=== PATIENT | female | born 1990 ===

== ENCOUNTER 2024-08-09 15:45 | Inpatient (IN) | payer OTHER, SELFPAY ==
--- NOTE | 2024-08-09 | ECG_ITS ---
Test Reason : TACHY Blood Pressure : */* mmHG Vent. Rate : 131 BPM Atrial Rate : 131 BPM P-R Int : 124 ms QRS Dur : 82 ms QT Int : 392 ms P-R-T Axes : 26 -9 55 degrees QTcB Int : 578 ms Sinus tachycardia Minimal voltage criteria for LVH, may be normal variant ( R in aVL ) Possible Anterior infarct , age undetermined Abnormal ECG No previous ECGs available Referred By: Generic ED Physician Electronically Signed By: Ashish Carmona
--- NOTE | ~2024-08-09 | XR_ITS ---
CLINICAL HISTORY: hypoxia 1 view chest x-ray. Comparison: None Findings: Heart size is normal, considering portable technique. Pulmonary vasculature is prominent. Small amount fluid is present in the minor fissure. There is atelectasis in the lung bases. No acute fracture. Impression: Normal heart size with mild vascular congestion Hypoventilation with bibasilar atelectasis/early pneumonia and small right pleural effusion. This document has been electronically signed by: Ryan Padilla MD on 08/09/2024 17:13:46
--- NOTE | ~2024-08-09 | CT_ITS ---
CLINICAL HISTORY: AMS CT head without contrast Comparison: None Findings: No intracranial mass, midline shift, hydrocephalus, or acute hemorrhage. Minimal mucosal thickening identified at the left frontal sinus with [id number] mucosal thickening of the ethmoid air cells, minimal mucosal thickening at the left maxillary sinus, and mild mucosal thickening at the right maxillary sinus. Minimal mucosal thickening present at the bilateral sphenoid sinuses. The bilateral mastoid air cells appear clear. No acute skull fracture. Impression: 1. No acute intracranial abnormality. No acute intracranial hemorrhage. This document has been electronically signed by: Henrry Ayon MD on 08/09/2024 23:14:49
--- NOTE | ~2024-08-09 | CT_ITS ---
CLINICAL HISTORY: hypoxia CT chest without contrast Comparison: None Findings: Normal heart,size. No significant pericardial effusion. No thoracic aorta aneurysm. There are minimal bilateral pleural effusions dependently with [id number] ill-defined ground-glass opacities diffusely throughout the bilateral lungs. No pneumothorax. 5 mm nodule visualized of the right middle lobe, along the right minor fissure on axial image number 53 of series 4. Moderate T7 vertebral body compression deformity present. This may be chronic in etiology based on its appearance. Impression: [id number] ill-defined ground-glass opacities identified diffusely throughout the bilateral lungs with minimal bilateral pleural effusions. These findings may be consistent with pulmonary edema or an atypical/viral infection. 5 mm right middle lobe nodule. Recommend no follow-up in low risk, and optional [address] follow-up in high-risk patients according to Fleischner criteria. Moderate T7 vertebral body compression deformity. This may be chronic in etiology based on its appearance, however clinical correlation is advised given the lack of comparison imaging. This document has been electronically signed by: Henrry Ayon MD on 08/09/2024 23:24:22
--- NOTE | ~2024-08-09 | CT_ITS ---
CLINICAL HISTORY: abd pain, emesis CT abdomen and pelvis without contrast Comparison: None Findings: This examination is mildly degraded by artifact related to motion and the patient's arms. The gallbladder and solid organs are within normal limits. No renal stones. No hydronephrosis or hydroureter. No bowel obstruction, pneumoperitoneum, or pneumatosis. Moderate colonic stool burden, most prominent at the ascending and transverse portions of the colon. Pelvic contents unremarkable. No bladder wall thickening. Normal appendix. The bones are intact. IMPRESSION: 1. Mildly limited examination related to artifact as described above. No acute inflammatory process identified within the abdomen or pelvis. 2. Moderate colonic stool burden. No bowel obstruction. This document has been electronically signed by: Henrry Ayon MD on 08/09/2024 23:24:07
[2024-08-09 15:53] VITALS: BP 138/78; PULSE 130; O2SAT 87
[2024-08-09 16:01] VITALS: BP 130/74; PULSE 128; RESP 10; TEMP 37.1; O2SAT 86; BMI 25.1
[2024-08-09 16:06] VITALS: O2SAT 93
--- NOTE | 2024-08-09 16:10 | ED.GENADULT ---
HPI - General Adult General Chief complaint: Altered Mental Status Stated complaint: Coffee ground emesis disoriented Time Seen by Provider: 08/09/24 16:09 Source: patient and EMS Mode of arrival: EMS History of Present Illness ED Provider: HPI narrative: Patient with history of polysubstance abuse, alcohol use came from [facility] after patient noted with decreased responsiveness saturating 87% at room air vomited coffee colored once does have history of GI surgery and ulcers in not using any thinners patient has been in [facility] since 07/31 Related Data Home Medications ?Medication ?Instructions ?Recorded ?Confirmed acetaminophen 325 mg tablet 650 mg PO Q4H PRN pain 08/09/24 08/09/24 aluminum-mag hydroxide-simethicone 30 ml PO QID PRN Constipation 08/09/24 08/09/24 200 mg-200 mg-20 mg/5 mL oral susp calcium carbonate 500 mg PO Q4H PRN Heartburn 08/09/24 08/09/24 clonazepam 1 mg tablet 1 mg PO TID@0630,1200,1800 08/09/24 08/09/24 docusate sodium 100 mg capsule 100 mg PO BID PRN Constipation 08/09/24 08/09/24 gabapentin 400 mg capsule 800 mg PO TID@0800,1300,1900 08/09/24 08/09/24 guaifenesin 600 mg tablet, 1,200 mg PO BID PRN Cough 08/09/24 08/09/24 extended release 12 hr hydroxyzine pamoate 50 mg capsule 50 mg PO Q4H PRN Anxiety 08/09/24 08/09/24 ibuprofen 400 mg tablet 400 mg PO Q8H PRN Pain 08/09/24 08/09/24 loperamide 2 mg capsule 2 mg PO Q4H PRN Diarrhea 08/09/24 08/09/24 lorazepam 1 mg tablet 1 mg PO Q1H PRN Withdrawal Symptoms 08/09/24 08/09/24 magnesium hydroxide 400 mg/5 mL 30 ml PO DAILY PRN Constipation 08/09/24 08/09/24 oral suspension melatonin 3 mg tablet 3 mg PO BEDTIME PRN insomnia 08/09/24 08/09/24 methadone 5 mg tablet 25 mg PO DAILY 08/09/24 08/09/24 mirtazapine 15 mg tablet 15 mg PO BEDTIME@1900 08/09/24 08/09/24 nicotine 21 mg/24 hr daily 1 patch topical DAILY PRN Smoking 08/09/24 08/09/24 transdermal patch Cessation ondansetron 4 mg disintegrating 4 mg PO Q6H PRN Nausea And Vomiting 08/09/24 08/09/24 tablet prazosin 1 mg capsule 1 mg PO BEDTIME@1900 08/09/24 08/09/24 quetiapine 200 mg tablet 200 mg PO BID@0800,1300 08/09/24 08/09/24 quetiapine 400 mg tablet 400 mg PO BEDTIME@19008/09/24 08/09/24 sennosides 8.6 mg tablet (senna) 17.2 mg PO DAILY PRN Constipation 08/09/24 08/09/24 Allergies Allergy/AdvReac Type Severity Reaction Status Date / Time Unable to Assess Allergy Verified 08/09/24 16:03 Review of Systems Review of Systems: Yes Unobtainable due to mental condition [facility] Past Medical History Medical History Mood disorder Social History Social History Unable to assess alcohol history related to: Unable to respond Use of substances other than those prescribed or required for medical reasons: Unable to respond Advance Directives: No Advance Directives Information Provided: No Physical Exam ED Vital Signs: Vital Signs - 24 hr 08/09/24 16:01 08/09/24 16:06 08/09/24 17:18 Temperature 98.7 F Pulse Rate 128 H 116 H Respiratory Rate 10 L 12 Blood Pressure 130/74 117/60 Pulse Oximetry 86 L 93 98 Oxygen Delivery Method Room Air Nasal Cannula Nasal Cannula Oxygen Flow Rate 4 4 08/09/24 19:51 Temperature 99.4 F Pulse Rate 113 H Respiratory Rate 16 Blood Pressure 104/53 L Pulse Oximetry 94 Oxygen Delivery Method Nasal Cannula Oxygen Flow Rate 4 BMI result Body Mass Index 25.1 Appearance: Lethargic arousable to painful and verbal stimuli. No acute distress. Eyes: PERRLA, No Nystagmus ENT: Pharynx normal. Oral Mucosa moist Neck: Normal inspection. Neck supple. CVS: Normal heart rate and rhythm. Pulses normal. Respiratory: No respiratory distress. Equal air entry bilateral, no wheezing or rhonchi diffuse crackles specially in the right lower base Abdomen: Soft and nontender. Bowel sounds are present, no mass palpable, no CVA tenderness Skin: Skin warm and dry. Normal skin color. Normal skin turgor. Extremities: No lower extremity edema. No calf tenderness Neuro: Lethargic moving all 4 extremities to painful stimuli Medications Administered Generic Name Dose Route Start Last Admin Trade Name Freq PRN Reason Stop Dose Admin Ampicillin Sodium/Sulbactam 100 mls @ 200 mls/hr 08/09/24 23:45 08/10/24 01:00 Sodium 3 gm/ Sodium Chloride IV 200 mls/hr Q6H INDER Administration Sodium Chloride 3 ml 08/10/24 00:00 08/10/24 01:03 0.9 % Sodium Chloride Flush 3 Ml Syringe IVFLUSH Not Given QSHIFT INDER Discontinued Medications Generic Name Dose Route Start Last Admin Trade Name Freq PRN Reason Stop Dose Admin Enoxaparin Sodium 40 mg 08/09/24 23:30 08/10/24 00:59 Enoxaparin Sodium 40 Mg/0.4 Ml Syringe SUBCUT 40 mg Q24H INDER Administration Sodium Chloride 1,000 mls @ 999 mls/hr 08/09/24 16:28 08/09/24 17:39 Ns IV 08/09/24 17:28 Infused .Q1H1M ONE Infusion Piperacillin Sod/Tazobactam 50 mls @ 100 mls/hr 08/09/24 21:05 08/09/24 22:08 Sod 3.375 gm/ Sodium Chloride IV 08/09/24 21:34 Infused ONCE ONE Infusion Naloxone HCl 0.4 mg 08/09/24 16:29 08/09/24 16:40 Naloxone Hcl 0.4 Mg/Ml Vial IVPUSH 08/09/24 16:30 0.4 mg ONCE ONE Administration Pantoprazole Sodium 80 mg 08/09/24 16:29 08/09/24 16:40 Pantoprazole Sodium 40 Mg/10 Ml Vial IVPUSH 08/09/24 16:30 80 mg ONCE ONE Administration Medical Decision Making Medical Decision Making [facility] Narrative: Patient with altered mental status with increased shortness of breath and lethargy from psych facility noted to be positive for fentanyl likely patient has had fentanyl during stay the also workup showed possible aspiration pneumonia started on Zosyn no active upper GI bleed noticed H&H stable. Will admit patient for observation during stay in the ER patient was ambulatory but falling sleep often Differential Diagnosis Differential Diagnoses: The differential diagnosis associated with the presentation includes Aspiration pneumonia/polysubstance abuse/narcotic abuse/metabolic encephalopathy Admission/Observation Consideration of admission/observation: Escalation of care including admission/observation considered Consult Healthcare Provider Management of the patient was discussed with: Hospitalist Lab Data MDM Lab Attestation statement: I reviewed the patient's lab results. 08/09/24 20:18 08/09/24 16:26 Labs: Lab Results 08/09/24 08/09/24 08/09/24 Range/Units 16:26 20:18 20:31 WBC 7.9 (4.8-10.8) X10*3/uL RBC 4.69 (4.20-5.50) X10*6/uL Hgb 13.1 11.5 L (12.0-16.0) g/dl Hct 38.3 33.8 L (37.0-47.0) % MCV 81.7 (80.0-98.0) fL MCH 27.9 (27.0-33.0) pg MCHC 34.2 (31.0-35.0) g/dl RDW 13.3 (11.0-16.0) % Plt Count 190 (160-400) X10*3/uL MPV 9.8 (9.4-12.3) fL Immature Gran % (Auto) 0.4 (0.0-0.4) % Neut % (Auto) 78.3 H (45-73) % Lymph % (Auto) 13.2 L (20-40) % [place] % (Auto) 7.6 (2-11) % Eos % (Auto) 0.4 (0-4) % Baso % (Auto) 0.1 (0-2) % Lymph # (Auto) 1.0 L (1.2-4.9) X10*3/uL [place] # (Auto) 0.6 (0.1-1.2) X10*3/uL Eos # (Auto) 0.0 (0.0-0.4) X10*3/uL Baso # (Auto) 0.0 (0.0-0.2) X10*3/uL Abs Immat Gran (auto) 0.03 (0.00-0.03) X10*3/uL Absolute Neuts (auto) 6.2 (2.0-8.3) x10*3/uL Absolute Nucleated RBC 0.000 (0.0-0.012) X10*3/uL Nucleated RBC % (auto) 0.0 (0.0-0.2) /100WBC PT 11.4 (10.9-12.4) SEC INR 1.0 (0.9-1.1) VBG pH 7.39 (7.32-7.43) VBG pCO2 53 mmHg VBG pO2 75 mmHg VBG HCO3 32 H (22-26) mmol/L VBG O2 Saturation 98.0 % VBG Base Excess 6.2 mmol/L Sodium 139 (135-145) mmol/L Potassium 3.9 (3.3-5.1) mmol/L Chloride 101 (96-108) mmol/L Carbon Dioxide 29 (22-29) mmol/L Anion Gap 13 (12-20) BUN 11 (9-16) mg/dL Creatinine 0.69 (0.5-1.4) mg/dL Estim Creat Clear Calc 98.7 Estimated GFR > 60 Random Glucose 109 (60-115) mg/dL Lactic Acid (0.5-2.0) mmol/L Calcium 9.1 (8.4-10.2) mg/dL Total Bilirubin 0.5 (0.0-1.0) mg/dL AST 42 H (5-31) U/L ALT 57 H (0-31) U/L Alkaline Phosphatase 97 (39-117) U/L Ammonia 41 (13-55) umol/L Total Protein 8.1 H (6.5-8.0) g/dL Albumin 4.2 (3.5-5.0) g/dL TSH 1.14 (0.32-4.0) uIU/mL Urine Opiates Screen Not Detected (Not Detect) Ur Buprenorphine Scrn Not Detected (Not Detect) ng/mL Ur Oxycodone Screen Not Detected (Not Detect) ng/mL Urine Methadone Screen Positive H (Not Detect) ng/mL Urine Fentanyl Screen POSITIVE H (Not Detect) Ur Barbiturates Screen Not Detected (Not Detect) Ur Phencyclidine Scrn Not Detected (Not Detect) Ur Amphetamines Screen Not Detected (Not Detect) U Benzodiazepines Scrn Not Detected (Not Detect) Urine Cocaine Screen Not Detected (Not Detect) U Marijuana (THC) Screen Not Detected (Not Detect) Ethyl Alcohol < 10 mg/dL Influenza Type A (PCR) NEGATIVE (Negative) Influenza Type B (PCR) NEGATIVE (Negative) RSV RNA Qual (PCR) NEGATIVE (Negative) SARS-CoV-2 RNA (RT-PCR) NEGATIVE (Negative) 08/09/24 Range/Units 21:28 WBC (4.8-10.8) X10*3/uL RBC (4.20-5.50) X10*6/uL Hgb (12.0-16.0) g/dl Hct (37.0-47.0) % MCV (80.0-98.0) fL MCH (27.0-33.0) pg MCHC (31.0-35.0) g/dl RDW (11.0-16.0) % Plt Count (160-400) X10*3/uL MPV (9.4-12.3) fL Immature Gran % (Auto) (0.0-0.4) % Neut % (Auto) (45-73) % Lymph % (Auto) (20-40) % [place] % (Auto) (2-11) % Eos % (Auto) (0-4) % Baso % (Auto) (0-2) % Lymph # (Auto) (1.2-4.9) X10*3/uL [place] # (Auto) (0.1-1.2) X10*3/uL Eos # (Auto) (0.0-0.4) X10*3/uL Baso # (Auto) (0.0-0.2) X10*3/uL Abs Immat Gran (auto) (0.00-0.03) X10*3/uL Absolute Neuts (auto) (2.0-8.3) x10*3/uL Absolute Nucleated RBC (0.0-0.012) X10*3/uL Nucleated RBC % (auto) (0.0-0.2) /100WBC PT (10.9-12.4) SEC INR (0.9-1.1) VBG pH (7.32-7.43) VBG pCO2 mmHg VBG pO2 mmHg VBG HCO3 (22-26) mmol/L VBG O2 Saturation % VBG Base Excess mmol/L Sodium (135-145) mmol/L Potassium (3.3-5.1) mmol/L Chloride (96-108) mmol/L Carbon Dioxide (22-29) mmol/L Anion Gap (12-20) BUN (9-16) mg/dL Creatinine (0.5-1.4) mg/dL Estim Creat Clear Calc Estimated GFR Random Glucose (60-115) mg/dL Lactic Acid 1.6 (0.5-2.0) mmol/L Calcium (8.4-10.2) mg/dL Total Bilirubin (0.0-1.0) mg/dL AST (5-31) U/L ALT (0-31) U/L Alkaline Phosphatase (39-117) U/L Ammonia (13-55) umol/L Total Protein (6.5-8.0) g/dL Albumin (3.5-5.0) g/dL TSH (0.32-4.0) uIU/mL Urine Opiates Screen (Not Detect) Ur Buprenorphine Scrn (Not Detect) ng/mL Ur Oxycodone Screen (Not Detect) ng/mL Urine Methadone Screen (Not Detect) ng/mL Urine Fentanyl Screen (Not Detect) Ur Barbiturates Screen (Not Detect) Ur Phencyclidine Scrn (Not Detect) Ur Amphetamines Screen (Not Detect) U Benzodiazepines Scrn (Not Detect) Urine Cocaine Screen (Not Detect) U Marijuana (THC) Screen (Not Detect) Ethyl Alcohol mg/dL Influenza Type A (PCR) (Negative) Influenza Type B (PCR) (Negative) RSV RNA Qual (PCR) (Negative) SARS-CoV-2 RNA (RT-PCR) (Negative) Independent Interpretation I performed an independent interpretation of an: EKG and Plain X-Ray Interpretation: Sinus tachycardia heart rate 131 beats per minute LVH no acute STT wave changes no acute ischemia Radiology Impression Discussion of test interpretation with radiology: I have reviewed the radiologist's reading. Discharge Plan Discharge Clinical Impression: Altered mental status, Acute hypoxemic respiratory failure, Aspiration pneumonia, Toxic encephalopathy, Opiate abuse, episodic Patient Disposition: Admitted As Inpatient
[2024-08-09 16:31] LABS: MANUAL DIFF FLAG NO
[2024-08-09 16:37] LABS: Basophils Percent Auto 0.1 % (0-2); Eosinophils Percent Auto 0.4 % (0-4); Hematocrit 38.3 % (37.0-47.0); Hemoglobin 13.1 g/dl (12.0-16.0); Imm Gran Abs Auto 0.03 X10*3/uL (0.00-0.03); Imm Gran Pct Auto 0.4 % (0.0-0.4); Lymphocytes Percent Auto 13.2 % (20-40); Mean Corpuscular HGB Conc 34.2 g/dl (31.0-35.0); Mean Corpuscular Hemoglobin 27.9 pg (27.0-33.0); Mean Corpuscular Volume 81.7 fL (80.0-98.0); Mean Platelet Volume 9.8 fL (9.4-12.3); Monocytes Absolute Auto 0.6 X10*3/uL (0.1-1.2); Monocytes Percent Auto 7.6 % (2-11); Neutrophils Absolute Auto 6.2 x10*3/uL (2.0-8.3); Neutrophils Percent Auto 78.3 % (45-73); Platelet Count 190 X10*3/uL (160-400); Red Blood Count 4.69 X10*6/uL (4.20-5.50); Red Cell Distribution Width 13.3 % (11.0-16.0); White Blood Count 7.9 X10*3/uL (4.8-10.8)
[2024-08-09] MEDS: Naloxone HCl 0.4 MG/ML VIAL IVPUSH (16:40)
[2024-08-09] MEDS: 0.9 % Sodium Chloride 1,000 ML 999 ML IV (16:40)
[2024-08-09] MEDS: Pantoprazole Sodium 40 MG/10 ML VIAL 80 MG IVPUSH (16:40)
[2024-08-09 16:41] LABS: Prothrombin Time 11.4 SEC (10.9-12.4)
[2024-08-09 16:54] LABS: Alanine Aminotransferase 57 U/L (0-31); Albumin Level 4.2 g/dL (3.5-5.0); Alkaline Phosphatase 97 U/L (39-117); Anion Gap 13 (12-20); Aspartate Amino Transferase 42 U/L (5-31); Bilirubin Total 0.5 mg/dL (0.0-1.0); Blood Urea Nitrogen 11 mg/dL (9-16); Calcium 9.1 mg/dL (8.4-10.2); Carbon Dioxide 29 mmol/L (22-29); Chloride 101 mmol/L (96-108); Creatinine Clr Calc Pharmacy 98.7; Estimated Glomerular Filt Rate > 60; Ethanol < 10 mg/dL; Glucose Random 109 mg/dL (60-115); Potassium 3.9 mmol/L (3.3-5.1); Sodium 139 mmol/L (135-145); Total Protein 8.1 g/dL (6.5-8.0)
[2024-08-09 17:10] LABS: Influenza A PCR NEGATIVE (Negative); Influenza B PCR NEGATIVE (Negative); Resp Syncy Virus RNA Qual PCR NEGATIVE (Negative); SARS COV2 PCR INHOUSE NEGATIVE (Negative)
[2024-08-09 17:18] VITALS: BP 117/60; PULSE 116; RESP 12; O2SAT 98
[2024-08-09 19:51] VITALS: BP 104/53; PULSE 113; RESP 16; TEMP 37.4; O2SAT 94
[2024-08-09 20:33] LABS: Venous Blood Gas Refer to POC result
[2024-08-09 20:34] LABS: VBG Base Excess 6.2 mmol/L; VBG HCO3 32 mmol/L (22-26); VBG pCO2 53 mmHg; VBG pH 7.39 (7.32-7.43); VBG pO2 75 mmHg
[2024-08-09 20:38] LABS: Hematocrit 33.8 % (37.0-47.0); Hemoglobin 11.5 g/dl (12.0-16.0)
[2024-08-09 20:39] LABS: Ammonia 41 umol/L (13-55)
[2024-08-09 20:45] LABS: Amphetamine Screen Urine Not Detected (Not Detect); Barbiturates, Urine Not Detected (Not Detect); Benzodiazepines Screen Urine Not Detected (Not Detect); Buprenorphine Scr Not Detected (Not Detect); Cannabinoid Screen Urine Not Detected (Not Detect); Cocaine Screen Urine Not Detected (Not Detect); Fentanyl, urine POSITIVE (Not Detect); Methadone Screen, Urine Positive (Not Detect); Opiate Screen Urine Not Detected (Not Detect); Oxycodone Screen Urine Not Detected (Not Detect); Phencyclidine Screen Urine Not Detected (Not Detect)
--- NOTE | 2024-08-09 20:54 | PC.NURSE ---
pt is getting upset wants to go back to [facility], pt ambulated to the bathroom with steady gait. needs at bedside pt had her diner on her own. pt expresses the need to walk around due to her sciatia issue. sat on room air 91-92% after going to the bathroom and back to bed. provider made aware.
--- NOTE | 2024-08-09 21:02 | PC.NURSE ---
provider at bedside, pt has not vomited since the onset of this rn's shift. pt sat are low 91-92% on room air, 95% with cough and deep breathing, crackles noted in base question aspiration pn.
[2024-08-09 21:09] LABS: Thyroid Stimulating Hormone 1.14 uIU/mL (0.32-4.0)
--- NOTE | 2024-08-09 21:22 | PHA.MEDREC ---
Addendum entered by Manan Parnell 08/09/24 21:32: reviewed Original Note: Pharmacy Consult ? Medication Reconciliation Pharmacy has completed the medication reconciliation[facility]
[2024-08-09] MEDS: Piperacillin Sodium/Tazobactam 3.375 GM in 0.9 % Sodium Chloride 50 ML IV (21:38)
[2024-08-09 21:54] LABS: Lactic Acid 1.6 mmol/L (0.5-2.0)
--- NOTE | 2024-08-09 22:14 | PC.NURSE ---
pt was sleeping, arrousable and demanding to staff, pt taken to ct with sitter present.
--- NOTE | 2024-08-09 22:29 | PC.NURSE ---
pt back from CT, pt was not sitting still well, flipped off the radiology staff. once pt returned to the ed pt was settled down.
--- NOTE | 2024-08-09 23:23 | PM.IMHP ---
History of Present Illness Date of Service: 08/10/24 Chief Complaint: Altered mentation This is a 33-year-old female with pertinent history of mood disorder, polysubstance use disorder, alcohol use disorder who was brought from [facility] for evaluation of decreased responsiveness. Patient awakens to verbal stimulus but goes back asleep immediately so unable to obtain history from the patient. Withdraws extremities to painful stimulus. History obtained from ER provider and chart review. Patient was noted to be with decreased responsiveness and was sent to the ER for further evaluation. In the emergency department pinpoint pupils noted and patient was given Narcan. She was also found to be hypoxic and placed on 4 L supplemental oxygen in the ER. Also reports of questionable coffee-ground emesis at [facility]. Unable to obtain review of systems. In the emergency department, imaging concerning for ground-glass opacities with bilateral pleural effusions. Review of Systems Review of Systems: Yes Unobtainable due to mental status PMFSH Medical History Mood disorder Pertinent family history: Unable to obtain Social History Unable to assess alcohol history related to: Unable to respond Use of substances other than those prescribed or required for medical reasons: Unable to respond Advance Directives: No Advance Directives Information Provided: No Meds Allergies Allergy/AdvReac Type Severity Reaction Status Date / Time Unable to Assess Allergy Verified 08/09/24 16:03 Home Medications ?Medication ?Instructions ?Recorded ?Confirmed ?Last Taken ?Type acetaminophen 325 mg tablet 650 mg PO Q4H PRN pain 08/09/24 08/09/24 Unknown History aluminum-mag hydroxide-simethicone 30 ml PO QID PRN Constipation 08/09/24 08/09/24 Unknown History 200 mg-200 mg-20 mg/5 mL oral susp calcium carbonate 500 mg PO Q4H PRN Heartburn 08/09/24 08/09/24 Unknown History clonazepam 1 mg tablet 1 mg PO TID@0630,1200,1800 08/09/24 08/09/24 Unknown History docusate sodium 100 mg capsule 100 mg PO BID PRN Constipation 08/09/24 08/09/24 Unknown History gabapentin 400 mg capsule 800 mg PO TID@0800,1300,1900 08/09/24 08/09/24 Unknown History guaifenesin 600 mg tablet, 1,200 mg PO BID PRN Cough 08/09/24 08/09/24 Unknown History extended release 12 hr hydroxyzine pamoate 50 mg capsule 50 mg PO Q4H PRN Anxiety 08/09/24 08/09/24 Unknown History ibuprofen 400 mg tablet 400 mg PO Q8H PRN Pain 08/09/24 08/09/24 Unknown History loperamide 2 mg capsule 2 mg PO Q4H PRN Diarrhea 08/09/24 08/09/24 Unknown History lorazepam 1 mg tablet 1 mg PO Q1H PRN Withdrawal Symptoms 08/09/24 08/09/24 Unknown History magnesium hydroxide 400 mg/5 mL 30 ml PO DAILY PRN Constipation 08/09/24 08/09/24 Unknown History oral suspension melatonin 3 mg tablet 3 mg PO BEDTIME PRN insomnia 08/09/24 08/09/24 Unknown History methadone 5 mg tablet 25 mg PO DAILY 08/09/24 08/09/24 Unknown History mirtazapine 15 mg tablet 15 mg PO BEDTIME@189908/09/24 08/09/24 Unknown History nicotine 21 mg/24 hr daily 1 patch topical DAILY PRN Smoking 08/09/24 08/09/24 Unknown History transdermal patch Cessation ondansetron 4 mg disintegrating 4 mg PO Q6H PRN Nausea And Vomiting 08/09/24 08/09/24 Unknown History tablet prazosin 1 mg capsule 1 mg PO BEDTIME@189908/09/24 08/09/24 Unknown History quetiapine 200 mg tablet 200 mg PO BID@0800,1300 08/09/24 08/09/24 Unknown History quetiapine 400 mg tablet 400 mg PO BEDTIME@189908/09/24 08/09/24 Unknown History sennosides 8.6 mg tablet (senna) 17.2 mg PO DAILY PRN Constipation 08/09/24 08/09/24 Unknown History Physical Exam Vital Signs and Narrative: Vital Signs: Last Vital Signs Temp 99.4 F 08/09/24 19:51 Pulse 113 H 08/09/24 19:51 Resp 16 08/09/24 19:51 BP 104/53 L 08/09/24 19:51 Pulse Ox 94 08/09/24 19:51 O2 Del Method Nasal Cannula 08/09/24 19:51 O2 Flow Rate 4 08/09/24 19:51 BMI result Body Mass Index 25.1 Middle-aged female lying in bed on supplemental oxygen Neck supple, no JVD Regular rate and rhythm, S1-S2 heard Crackles present, no wheezing appreciated Abdomen soft nontender, no guarding, no rigidity Patient is somnolent but awakens to verbal stimulus, does not follow commands, non conversational as falls back asleep, withdraws extremity to pain Psych: Somnolent No pedal edema Results Labs 08/09/24 20:18 08/09/24 16:26 Labs: Laboratory Results - last 24 hr 08/09/24 08/09/24 08/09/24 16:26 20:18 20:31 MCV 81.7 MCH 27.9 MCHC 34.2 RDW 13.3 Plt Count 190 MPV 9.8 Immature Gran % (Auto) 0.4 Neut % (Auto) 78.3 H Lymph % (Auto) 13.2 L [place] % (Auto) 7.6 Eos % (Auto) 0.4 Baso % (Auto) 0.1 Lymph # (Auto) 1.0 L [place] # (Auto) 0.6 Eos # (Auto) 0.0 Baso # (Auto) 0.0 Abs Immat Gran (auto) 0.03 Absolute Neuts (auto) 6.2 Absolute Nucleated RBC 0.000 Nucleated RBC % (auto) 0.0 PT 11.4 INR 1.0 VBG pH 7.39 VBG pCO2 53 VBG pO2 75 VBG HCO3 32 H VBG O2 Saturation 98.0 VBG Base Excess 6.2 Anion Gap 13 Estim Creat Clear Calc 98.7 Estimated GFR > 60 Random Glucose 109 Lactic Acid Calcium 9.1 Total Bilirubin 0.5 AST 42 H ALT 57 H Alkaline Phosphatase 97 Ammonia 41 Total Protein 8.1 H Albumin 4.2 TSH 1.14 Urine Opiates Screen Not Detected Ur Buprenorphine Scrn Not Detected Ur Oxycodone Screen Not Detected Urine Methadone Screen Positive H Urine Fentanyl Screen POSITIVE H Ur Barbiturates Screen Not Detected Ur Phencyclidine Scrn Not Detected Ur Amphetamines Screen Not Detected U Benzodiazepines Scrn Not Detected Urine Cocaine Screen Not Detected U Marijuana (THC) Screen Not Detected Ethyl Alcohol < 10 Influenza Type A (PCR) NEGATIVE Influenza Type B (PCR) NEGATIVE RSV RNA Qual (PCR) NEGATIVE SARS-CoV-2 RNA (RT-PCR) NEGATIVE 08/09/24 21:28 MCV MCH MCHC RDW Plt Count MPV Immature Gran % (Auto) Neut % (Auto) Lymph % (Auto) [place] % (Auto) Eos % (Auto) Baso % (Auto) Lymph # (Auto) [place] # (Auto) Eos # (Auto) Baso # (Auto) Abs Immat Gran (auto) Absolute Neuts (auto) Absolute Nucleated RBC Nucleated RBC % (auto) PT INR VBG pH VBG pCO2 VBG pO2 VBG HCO3 VBG O2 Saturation VBG Base Excess Anion Gap Estim Creat Clear Calc Estimated GFR Random Glucose Lactic Acid 1.6 Calcium Total Bilirubin AST ALT Alkaline Phosphatase Ammonia Total Protein Albumin TSH Urine Opiates Screen Ur Buprenorphine Scrn Ur Oxycodone Screen Urine Methadone Screen Urine Fentanyl Screen Ur Barbiturates Screen Ur Phencyclidine Scrn Ur Amphetamines Screen U Benzodiazepines Scrn Urine Cocaine Screen U Marijuana (THC) Screen Ethyl Alcohol Influenza Type A (PCR) Influenza Type B (PCR) RSV RNA Qual (PCR) SARS-CoV-2 RNA (RT-PCR) Assessment and Plan (1) Acute hypoxemic respiratory failure: Status: Acute (2) Aspiration pneumonia: Status: Acute (3) Toxic encephalopathy: Status: Acute Plan This is a 33-year-old female with pertinent history of mood disorder, polysubstance use disorder, alcohol use disorder who was brought from [facility] for evaluation of decreased responsiveness. #. Acute hypoxemic respiratory failure due to aspiration pneumonia: Will admit patient with supplemental oxygen. Initiating IV Unasyn. #. Acute toxic encephalopathy in the setting of fentanyl use: UDS positive for fentanyl although patient was denying use initially as per ER provider. Addiction Team consulted. Monitor for withdrawal. #. ?Coffee-ground emesis: Initiated IV Protonix. GI consult if H&H drops. #. Mood disorder: Hold home mood stabilizers until mentation improves. Has sitter in place Med rec pending DVT prophylaxis: Mechanical Full code Admit as inpatient and will require two night minimum hospital stay for supplemental oxygen, IV antibiotics (as above), which is not possible in a lesser acute setting. Quality Stroke Does the patient have a stroke diagnosis?: No VTE Prior VTE?: No VTE Risk Level:: Medical - moderate - high VTE Device Contraindication: Treatment Not Indicated VTE Drug Contraindication: N/A - Med Ordered
--- NOTE | 2024-08-10 | ECG_ITS ---
Test Reason : cabanae Blood Pressure : */* mmHG Vent. Rate : 92 BPM Atrial Rate : 92 BPM P-R Int : 148 ms QRS Dur : 90 ms QT Int : 412 ms P-R-T Axes : 40 -1 32 degrees QTcB Int : 509 ms Normal sinus rhythm Prolonged QT Abnormal ECG When compared with ECG of 09-Aug-2024 16:10, No significant change was found Referred By: Tiffanie Keen Electronically Signed By: Ashish Carmona
[2024-08-10 00:43] LABS: B Type Natriuretic Peptide 12 pg/mL (<100)
[2024-08-10] MEDS: Enoxaparin Sodium 40 MG/0.4 ML SYRINGE SUBCUT (00:59)
[2024-08-10] MEDS: Ampicillin Sodium/Sulbactam Na 3 GM in 0.9 % Sodium Chloride 100 ML IV ×4 (01:00→18:36)
--- NOTE | 2024-08-10 02:06 | PC.NURSE ---
pt sleeping, pt fell asleep while eating a sandwhich, only half consumed. pt rr even reg no s/s of distress, sitter present. no s/s of distress. when pt wakes she is whinning and talking like a child, pt can clear up her talk if addressed pt can talk normal.
[2024-08-10] MEDS: Thiamine HCL 200 MG in 0.9 % Sodium Chloride 100 ML 204 MG IV (02:14)
--- NOTE | 2024-08-10 04:44 | PC.NURSE ---
pt states her place she receives her methadone from is 20 miles away from here and unable to verify her methadone dose.
--- NOTE | 2024-08-10 04:48 | PC.NURSE ---
pt states she gets her methadone from ? [facility] yet she is homeless, pt refusing labs till she gets her dose. pt doesnt know her dose, pt is getting more aggitated and is not cooperative with staff at this time but is redirectable.
--- NOTE | 2024-08-10 05:00 | PC.NURSE ---
This rn is trying to verify pt methadone dose with [facility] and no answer, message left to call us back. pt made aware, pt is stating she will pull out her iv, threatening to leave, refusing lab draws and with talking to pt she did allow labs to be drawn.
[2024-08-10 05:01] LABS: MANUAL DIFF FLAG NO
--- NOTE | 2024-08-10 05:03 | PC.NURSE ---
pt pulled out her iv at this time, reason stated she didnt like her iv in her hand.
--- NOTE | 2024-08-10 05:11 | PC.NURSE ---
hospitalist jasbir sent to request her medications, and to update provider.
[2024-08-10 05:15] LABS: Basophils Percent Auto 0.3 % (0-2); Eosinophils Absolute Auto 0.1 X10*3/uL (0.0-0.4); Eosinophils Percent Auto 1.9 % (0-4); Hematocrit 33.3 % (37.0-47.0); Imm Gran Abs Auto 0.01 X10*3/uL (0.00-0.03); Imm Gran Pct Auto 0.3 % (0.0-0.4); Lymphocytes Absolute Auto 1.4 X10*3/uL (1.2-4.9); Lymphocytes Percent Auto 43.7 % (20-40); Mean Corpuscular Hemoglobin 27.5 pg (27.0-33.0); Mean Corpuscular Volume 83.3 fL (80.0-98.0); Mean Platelet Volume 10.2 fL (9.4-12.3); Monocytes Absolute Auto 0.3 X10*3/uL (0.1-1.2); Monocytes Percent Auto 10.4 % (2-11); Neutrophils Absolute Auto 1.4 x10*3/uL (2.0-8.3); Neutrophils Percent Auto 43.4 % (45-73); Platelet Count 185 X10*3/uL (160-400); Red Cell Distribution Width 13.3 % (11.0-16.0); White Blood Count 3.2 X10*3/uL (4.8-10.8)
[2024-08-10 05:21] LABS: Anion Gap 11 (12-20); Blood Urea Nitrogen 10 mg/dL (9-16); Calcium 8.6 mg/dL (8.4-10.2); Carbon Dioxide 27 mmol/L (22-29); Chloride 106 mmol/L (96-108); Creatinine Clr Calc Pharmacy 104.7; Estimated Glomerular Filt Rate > 60; Glucose Random 138 mg/dL (60-115); Potassium 3.9 mmol/L (3.3-5.1); Sodium 140 mmol/L (135-145)
[2024-08-10 05:53] VITALS: BP 100/54; PULSE 90; RESP 20; TEMP 36.7; O2SAT 93
[2024-08-10] MEDS: Pantoprazole Sodium 40 MG/10 ML VIAL IVPUSH ×2 (05:59→15:34)
--- NOTE | 2024-08-10 07:30 | PC.NURSE ---
ASSUMED CARE OF PT, SHE IS AGITATED, DEMANDING MEDS, POOR IMPULSE CONTROL, DEMANDING FOOD WELL. PROVIDERS CONTACTED FOR MED ORDERS.
[2024-08-10 08:27] VITALS: BP 119/68; PULSE 85; RESP 20; O2SAT 97
[2024-08-10] MEDS: Thiamine HCL 100 MG TABLET PO (08:36)
[2024-08-10] MEDS: QUEtiapine Fumarate 200 MG TABLET PO ×2 (08:36→12:20)
[2024-08-10] MEDS: Gabapentin 400 MG CAPSULE 800 MG PO ×3 (08:36→18:43)
[2024-08-10] MEDS: ondansetron HCL 4 MG/2 ML VIAL IVPUSH (08:36)
[2024-08-10] MEDS: clonazePAM 1 MG TABLET PO ×3 (08:36→18:37)
[2024-08-10] MEDS: 0.9 % Sodium Chloride Flush 3 ML SYRINGE IVFLUSH ×2 (08:37→15:35)
--- NOTE | 2024-08-10 09:59 | PC.NURSE ---
PT MEDICATED PER EMR. ATIVAN HELD PT PREFERS TO TAKE HOME KLNOPIN. PT CONTINUES TO BE BELLIGERENTLY DEMANDING FOOD AND DRINK, INSTRUCTED MULTIPLE TIMES ON REASON FOR ADMISSION. SHE INSISTS EMESIS CONTENTS WERE BROWN BECAUSE SHE HAD JUST HAD COFFEE. HOSPITALIST HAS NOW SEEN THE PT, RECEIVED VERBAL ORDER FOR NPO STATUS TO BE REMOVED, PT GIVEN FOOD AND DRINK. SHE HAS NOT HAD ANY EPISODES OF VOMITING THIS AM. CONTINUES TO DEMAND HER METHADONE. REMAINS ON 2L O2
--- NOTE | 2024-08-10 11:08 | PC.NURSE ---
LAST METHADONE DOSE CONFIRMED BY [facility] [employer]ACHINE FEATHEREDGER AND REDUCER NATHAN. PT RECEIVED 45MG METHADONE ON 08/09/24 AT 0559AM.
--- NOTE | 2024-08-10 11:27 | HE.PHANOTE ---
RE: METHADONE DOSING Last dose of methadone 45 mg was given at [facility] [phone] on 08/09/24 @0555 per Lois (supervisor meter shop).
[2024-08-10] MEDS: methADONE HCl 20 MG/2 ML ORAL.CONC 45 MG PO (11:36)
--- NOTE | 2024-08-10 11:40 | PC.NURSE ---
Patient is very agitated regarding Methadone dose. Given 45mg Methadone as ordered & confirmed with Lois Segundo. Patient angry stating That's bullshit! I take 75mg! Call them again! You're all fucking me over!
--- NOTE | 2024-08-10 12:44 | P.PNIM_ITS ---
Subjective Subjective Date of Service: 08/10/24 Interval History: seen and evaluated this morning very anxious and restless QTc prolonged no other events Review of Systems Review of Systems: Yes all other systems are reviewed and are negative Physical Exam 2 Vital Signs: Vital Signs: Last Vital Signs Temp 98.0 F 08/10/24 05:53 Pulse 85 08/10/24 08:27 Resp 20 08/10/24 08:27 BP 119/68 08/10/24 08:27 Pulse Ox 97 08/10/24 08:27 O2 Del Method Room Air 08/10/24 08:27 O2 Flow Rate 2 08/10/24 05:53 BMI result Body Mass Index 25.1 Const: Other: Constitutional : Awake, interactive, not in distress Neck : Normal inspection, Supple Cardiovascular : RRR, no JVP, no lower extremity edema Respiratory : good bilateral air entry, no crackles, wheezes or rhonchi Gastrointestinal: soft, lax, Normal bowel sounds, Non tender Skin : Warm, Dry Neurological : Alert & oriented x3, No focal deficit Psychiatry: restless, agitated Objective Data Active Medications Acetaminophen (Acetaminophen 325 Mg Tablet) 650 mg PO Q6H PRN PRN Reason: Pain, Mild 1-3,fever,headache Al Hydroxide/Mg Hydroxide (Magnesium Hydrox/Alum Hydrox 30 Ml Oral.Susp) 30 ml PO QID PRN PRN Reason: Constipation Calcium Carbonate (Calcium Carbonate 750 Mg Tab.Chew) 750 mg PO Q4H PRN PRN Reason: Heartburn Clonazepam (Clonazepam 1 Mg Tablet) 1 mg PO TID@0630,1200,1800 [facility] Last Admin: 08/10/24 12:19 Dose: 1 mg Documented By: ANDRE Docusate Sodium (Docusate Sodium 100 Mg Capsule) 100 mg PO BID PRN PRN Reason: Constipation Gabapentin (Gabapentin 400 Mg Capsule) 800 mg PO TID@0800,1300,1900 [facility] Last Admin: 08/10/24 12:19 Dose: 800 mg Documented By: ANDRE Guaifenesin (Guaifenesin La 600 Mg Tab.Er.12h) 1,200 mg PO BID PRN PRN Reason: Cough Hydroxyzine HCl (Hydroxyzine Hcl 50 Mg Tablet) 50 mg PO Q4H PRN PRN Reason: Anxiety Ampicillin Sodium/Sulbactam (Sodium 3 gm/ Sodium Chloride) 100 mls @ 200 mls/hr IV Q6H [facility] Last Admin: 08/10/24 12:20 Dose: 200 mls/hr Documented By: ANDRE Loperamide HCl (Loperamide Hcl 2 Mg Capsule) 2 mg PO Q4H PRN PRN Reason: Diarrhea Magnesium Hydroxide (Milk Of Magnesia 30 Ml Oral.Susp) 30 ml PO DAILY PRN PRN Reason: Constipation Magnesium Hydroxide (Milk Of Magnesia 30 Ml Oral.Susp) 30 ml PO DAILY PRN PRN Reason: Constipation Melatonin (Melatonin 3 Mg Tablet) 3 mg PO BEDTIME PRN PRN Reason: insomnia Mirtazapine (Mirtazapine 15 Mg Tablet) 15 mg PO BEDTIME@1900 [facility] Nicotine (Nicotine 21 Mg Patch.Td24) 21 mg TRANSDERMA DAILY PRN PRN Reason: Smoking Cessation Ondansetron HCl (Ondansetron Hcl 4 Mg/2 Ml Vial) 4 mg IVPUSH Q8H PRN PRN Reason: Nausea and Vomiting Last Admin: 08/10/24 08:36 Dose: 4 mg Documented By: ADILENE Pantoprazole Sodium (Pantoprazole Sodium 40 Mg/10 Ml Vial) 40 mg IVPUSH BID@0630,1630 [facility] Last Admin: 08/10/24 05:59 Dose: 40 mg Documented By: JIHAN Prazosin HCl (Prazosin Hcl 1 Mg Capsule) 1 mg PO BEDTIME@1900 [facility]; Protocol Quetiapine Fumarate (Quetiapine Fumarate 200 Mg Tablet) 200 mg PO BID@0800,1300 [facility] Last Admin: 08/10/24 12:20 Dose: 200 mg Documented By: ANDRE Quetiapine Fumarate (Quetiapine Fumarate 400 Mg Tablet) 400 mg PO BEDTIME@1900 [facility] Senna (Sennosides 8.6 Mg Tablet) 17.2 mg PO DAILY PRN PRN Reason: Constipation Sodium Chloride (0.9 % Sodium Chloride Flush 3 Ml Syringe) 3 ml IVFLUSH QSHIFT [facility] Last Admin: 08/10/24 08:37 Dose: 3 ml Documented By: ADILENE Thiamine HCl (Thiamine Hcl 100 Mg Tablet) 100 mg PO DAILY [facility] Last Admin: 08/10/24 08:36 Dose: 100 mg Documented By: ADILENE Labs 08/10/24 04:56 08/10/24 04:56 Labs: Laboratory Results - last 24 hr 08/09/24 08/09/24 08/09/24 16:26 20:18 20:31 MCV 81.7 MCH 27.9 MCHC 34.2 RDW 13.3 Plt Count 190 MPV 9.8 Immature Gran % (Auto) 0.4 Neut % (Auto) 78.3 H Lymph % (Auto) 13.2 L [place] % (Auto) 7.6 Eos % (Auto) 0.4 Baso % (Auto) 0.1 Lymph # (Auto) 1.0 L [place] # (Auto) 0.6 Eos # (Auto) 0.0 Baso # (Auto) 0.0 Abs Immat Gran (auto) 0.03 Absolute Neuts (auto) 6.2 Absolute Nucleated RBC 0.000 Nucleated RBC % (auto) 0.0 PT 11.4 INR 1.0 VBG pH 7.39 VBG pCO2 53 VBG pO2 75 VBG HCO3 32 H VBG O2 Saturation 98.0 VBG Base Excess 6.2 Anion Gap 13 Estim Creat Clear Calc 98.7 Estimated GFR > 60 Random Glucose 109 Lactic Acid Calcium 9.1 Total Bilirubin 0.5 AST 42 H ALT 57 H Alkaline Phosphatase 97 Ammonia 41 B-Natriuretic Peptide Total Protein 8.1 H Albumin 4.2 TSH 1.14 Urine Opiates Screen Not Detected Ur Buprenorphine Scrn Not Detected Ur Oxycodone Screen Not Detected Urine Methadone Screen Positive H Urine Fentanyl Screen POSITIVE H Ur Barbiturates Screen Not Detected Ur Phencyclidine Scrn Not Detected Ur Amphetamines Screen Not Detected U Benzodiazepines Scrn Not Detected Urine Cocaine Screen Not Detected U Marijuana (THC) Screen Not Detected Ethyl Alcohol < 10 Influenza Type A (PCR) NEGATIVE Influenza Type B (PCR) NEGATIVE RSV RNA Qual (PCR) NEGATIVE SARS-CoV-2 RNA (RT-PCR) NEGATIVE 08/09/24 08/10/24 08/10/24 21:28 00:18 04:56 MCV 83.3 MCH 27.5 MCHC 33.0 RDW 13.3 Plt Count 185 MPV 10.2 Immature Gran % (Auto) 0.3 Neut % (Auto) 43.4 L Lymph % (Auto) 43.7 H [place] % (Auto) 10.4 Eos % (Auto) 1.9 Baso % (Auto) 0.3 Lymph # (Auto) 1.4 [place] # (Auto) 0.3 Eos # (Auto) 0.1 Baso # (Auto) 0.0 Abs Immat Gran (auto) 0.01 Absolute Neuts (auto) 1.4 L Absolute Nucleated RBC 0.000 Nucleated RBC % (auto) 0.0 PT INR VBG pH VBG pCO2 VBG pO2 VBG HCO3 VBG O2 Saturation VBG Base Excess Anion Gap 11 L Estim Creat Clear Calc 104.7 Estimated GFR > 60 Random Glucose 138 H Lactic Acid 1.6 Calcium 8.6 Total Bilirubin AST ALT Alkaline Phosphatase Ammonia B-Natriuretic Peptide 12 Total Protein Albumin TSH Urine Opiates Screen Ur Buprenorphine Scrn Ur Oxycodone Screen Urine Methadone Screen Urine Fentanyl Screen Ur Barbiturates Screen Ur Phencyclidine Scrn Ur Amphetamines Screen U Benzodiazepines Scrn Urine Cocaine Screen U Marijuana (THC) Screen Ethyl Alcohol Influenza Type A (PCR) Influenza Type B (PCR) RSV RNA Qual (PCR) SARS-CoV-2 RNA (RT-PCR) Assessment and Plan (1) Opiate abuse, episodic: Status: Acute (2) Altered mental status: Status: Acute (3) Mood disorder: Status: Acute (4) Toxic encephalopathy: Status: Acute (5) Aspiration pneumonia: Status: Acute Plan This is a 33-year-old female with pertinent history of mood disorder, polysubstance use disorder, alcohol use disorder who was brought from [facility] for evaluation of decreased responsiveness. # Acute hypoxemic respiratory failure due to aspiration pneumonia Not septic Continue IV Unasyn. # Acute toxic encephalopathy in the setting of fentanyl use: UDS positive for fentanyl Addiction Team following Monitor for withdrawal. # Coffee-ground emesis continue IV Protonix Advance diet reports that she ate choclate prior to vomiting. no recurrence since then monitor H&H. consider GI eval if drops # Mood disorder restart Clonazepam, Seroquel # Prolonged QTc likely chronicly elevated given her home medications correct electrolytes repeat EKG DVT prophylaxis: Mechanical Full code Admit as inpatient and will require overnight hospital stay for supplemental oxygen, IV antibiotics (as above), which is not possible in a lesser acute setting. Quality Stroke Does the patient have a stroke diagnosis?: No VTE Prior VTE?: No VTE Risk Level:: Medical - moderate - high VTE Device Contraindication: Treatment Not Indicated VTE Drug Contraindication: N/A - Med Ordered
[2024-08-10 13:08] LABS: Magnesium 1.9 mg/dL (1.6-2.6)
--- NOTE | 2024-08-10 13:20 | MHC.CM.PN ---
CM ATTEMPTED TO MEET WITH PT WHO WAS AWAKE, AND RESPONDING TO QUESTIONS, HOWEVER RESPONSES WERE SLURRED AND UNINTELLIGIBLE. CM UNABLE TO OBTAIN INFORMATION RELATED TO HAZARDOUS SUBSTANCES SCIENTIST PT OUT OF BED AND APPEARS FUNCTIONALLY INDEPENDENT, SHE HAS NO CONTACTS ON FILE AND NO HCP PT TRANSFERRED FROM [facility] TBD: RETURN TO [facility] VS ? HOME
--- NOTE | 2024-08-10 13:22 | PC.NURSE ---
Patient refused EKG at this time, sitting upright and eating. Patient stated, I just wanna fucking eat first! Instructed patient to please refrain from swearing and will attempt EKG after patient completes meal. Leslie Bahena & Dr. Keen (hospitalist) aware.
[2024-08-10 14:00] LABS: Adenovirus PCR Not Detected (Not Detect.); Bordetella parapertussis PCR Not Detected (Not Detect.); Bordetella pertussis PCR Not Detected (Not Detect.); Chlamydia pneumoniae PCR Not Detected (Not Detect.); Coronavirus 229E PCR Not Detected (Not Detect.); Coronavirus HKU1 PCR Not Detected (Not Detect.); Coronavirus NL63 PCR Not Detected (Not Detect.); Coronavirus OC43 PCR Not Detected (Not Detect.); Human metapneumovirus PCR Not Detected (Not Detect.); Influenza A PCR Not Detected (Not Detect.); Influenza B PCR Not Detected (Not Detect.); Mycoplasma pneumoniae PCR Not Detected (Not Detect.); Parainfluenza 1 PCR Not Detected (Not Detect.); Parainfluenza 2 PCR Not Detected (Not Detect.); Parainfluenza 3 PCR Not Detected (Not Detect.); Parainfluenza 4 PCR Not Detected (Not Detect.); RSV PCR Not Detected (Not Detect.); Rhino/Enterovirus PCR Not Detected (Not Detect.); SARS-CoV-2 PCR Not Detected (Not Detect.)
[2024-08-10 14:22] LABS: Influenza A H1 PCR Not Detected (Not Detect.); Influenza A H1-2009 PCR Not Detected (Not Detect.); Influenza A H3 PCR Not Detected (Not Detect.)
--- NOTE | 2024-08-10 14:54 | HO.ADDICT_ITS ---
History of Present Illness Date of Service: 08/10/2024 Chief Complaint: Coffee ground emesis disoriented Reason for Consult: JIMMY Sources of Information: chart reviewed HPI Narrative: Patient is a 33 year old female who presented to [facility] via ambulance from [facility] Per ED note, patient was founds to be minimally responsive, 02 sat 87% and coffee ground emesis Admitted with aspiration pneumonia Patient seen in room 16 of main ED. She is awake, but not alert, she is walking around her room trying to pick things up that aren't there. Unable to obtain any history from patient as her speech is very slurred and challenging to understand. She does not appear to be showing any signs of withdrawal. Notes show that patient has been very irritable, verbally aggressive to nurse and reporting that she is angry about her methadone dose. Methadone dose confirmed by RN this morning to be 45mg daily, with last dose administered on 08/09/24. Patient insistent that dose is 75mg Notes show that patient has been at [facility] for at least a week (possibly more). MV notes show patient carries dx of OUD, AUD. Additional history unknown, aside from medication list which was provided by [facility] Medical Evaluation Reviewed: Yes Review of Systems Review of Systems Yes Unobtainable due to mental status Diagnostics Vital Signs (24Hr): Vital Signs - 24 hr 08/09/24 16:01 08/09/24 16:06 08/09/24 17:18 Temperature 98.7 F Pulse Rate 128 H 116 H Respiratory Rate 10 L 12 Blood Pressure 130/74 117/60 Pulse Oximetry 86 L 93 98 Oxygen Delivery Method Room Air Nasal Cannula Nasal Cannula Oxygen Flow Rate 4 4 08/09/24 19:51 08/10/24 05:53 08/10/24 08:27 Temperature 99.4 F 98.0 F Pulse Rate 113 H 90 85 Respiratory Rate 16 20 20 Blood Pressure 104/53 L 100/54 L 119/68 Pulse Oximetry 94 93 97 Oxygen Delivery Method Nasal Cannula Nasal Cannula Room Air Oxygen Flow Rate 4 2 BMI result Body Mass Index 25.1 Labs 08/10/24 04:56 08/10/24 04:56 Labs: Laboratory Results - last 48 hr 08/09/24 08/09/24 08/09/24 16:26 20:18 20:31 WBC 7.9 RBC 4.69 Hgb 13.1 11.5 L Hct 38.3 33.8 L MCV 81.7 MCH 27.9 MCHC 34.2 RDW 13.3 Plt Count 190 MPV 9.8 Immature Gran % (Auto) 0.4 Neut % (Auto) 78.3 H Lymph % (Auto) 13.2 L [place] % (Auto) 7.6 Eos % (Auto) 0.4 Baso % (Auto) 0.1 Lymph # (Auto) 1.0 L [place] # (Auto) 0.6 Eos # (Auto) 0.0 Baso # (Auto) 0.0 Abs Immat Gran (auto) 0.03 Absolute Neuts (auto) 6.2 Absolute Nucleated RBC 0.000 Nucleated RBC % (auto) 0.0 PT 11.4 INR 1.0 VBG pH 7.39 VBG pCO2 53 VBG pO2 75 VBG HCO3 32 H VBG O2 Saturation 98.0 VBG Base Excess 6.2 Sodium 139 Potassium 3.9 Chloride 101 Carbon Dioxide 29 Anion Gap 13 BUN 11 Creatinine 0.69 Estim Creat Clear Calc 98.7 Estimated GFR > 60 Random Glucose 109 Lactic Acid Calcium 9.1 Magnesium Total Bilirubin 0.5 AST 42 H ALT 57 H Alkaline Phosphatase 97 Ammonia 41 B-Natriuretic Peptide Total Protein 8.1 H Albumin 4.2 TSH 1.14 Urine Opiates Screen Not Detected Ur Buprenorphine Scrn Not Detected Ur Oxycodone Screen Not Detected Urine Methadone Screen Positive H Urine Fentanyl Screen POSITIVE H Ur Barbiturates Screen Not Detected Ur Phencyclidine Scrn Not Detected Ur Amphetamines Screen Not Detected U Benzodiazepines Scrn Not Detected Urine Cocaine Screen Not Detected U Marijuana (THC) Screen Not Detected Ethyl Alcohol < 10 Respiratory Panel Taylor Adenovirus (Rapid PCR) B.pert (TEM-PCR) B.parapertussis DNA PCR C. pneumoniae DNA (PCR) Coronavirus OC43 (PCR) Coronavirus HKU1 (PCR) Coronavirus 229E (PCR) Coronavirus NL63 (PCR) Human Metapneumovir PCR Influenza A (RT-PCR) Influenza A (H1) PCR Influ A (H1/09) PCR Influenza A (H3) PCR Influenza Type A (PCR) NEGATIVE Influenza B (RT-PCR) Influenza Type B (PCR) NEGATIVE M. pneumoniae (PCR) Parainfluenza 1 (PCR) Parainfluenza 2 (PCR) Parainfluenza 3 (PCR) Parainfluenza 4 (PCR) RSV (PCR) RSV RNA Qual (PCR) NEGATIVE Entero/Rhino (PCR) SARS-CoV-2 RNA (RT-PCR) NEGATIVE 08/09/24 08/10/24 08/10/24 21:28 00:18 04:56 WBC 3.2 L RBC 4.00 L Hgb 11.0 L Hct 33.3 L MCV 83.3 MCH 27.5 MCHC 33.0 RDW 13.3 Plt Count 185 MPV 10.2 Immature Gran % (Auto) 0.3 Neut % (Auto) 43.4 L Lymph % (Auto) 43.7 H [place] % (Auto) 10.4 Eos % (Auto) 1.9 Baso % (Auto) 0.3 Lymph # (Auto) 1.4 [place] # (Auto) 0.3 Eos # (Auto) 0.1 Baso # (Auto) 0.0 Abs Immat Gran (auto) 0.01 Absolute Neuts (auto) 1.4 L Absolute Nucleated RBC 0.000 Nucleated RBC % (auto) 0.0 PT INR VBG pH VBG pCO2 VBG pO2 VBG HCO3 VBG O2 Saturation VBG Base Excess Sodium 140 Potassium 3.9 Chloride 106 Carbon Dioxide 27 Anion Gap 11 L BUN 10 Creatinine 0.65 Estim Creat Clear Calc 104.7 Estimated GFR > 60 Random Glucose 138 H Lactic Acid 1.6 Calcium 8.6 Magnesium 1.9 Total Bilirubin AST ALT Alkaline Phosphatase Ammonia B-Natriuretic Peptide 12 Total Protein Albumin TSH Urine Opiates Screen Ur Buprenorphine Scrn Ur Oxycodone Screen Urine Methadone Screen Urine Fentanyl Screen Ur Barbiturates Screen Ur Phencyclidine Scrn Ur Amphetamines Screen U Benzodiazepines Scrn Urine Cocaine Screen U Marijuana (THC) Screen Ethyl Alcohol Respiratory Panel Taylor Adenovirus (Rapid PCR) B.pert (TEM-PCR) B.parapertussis DNA PCR C. pneumoniae DNA (PCR) Coronavirus OC43 (PCR) Coronavirus HKU1 (PCR) Coronavirus 229E (PCR) Coronavirus NL63 (PCR) Human Metapneumovir PCR Influenza A (RT-PCR) Influenza A (H1) PCR Influ A (H1/09) PCR Influenza A (H3) PCR Influenza Type A (PCR) Influenza B (RT-PCR) Influenza Type B (PCR) M. pneumoniae (PCR) Parainfluenza 1 (PCR) Parainfluenza 2 (PCR) Parainfluenza 3 (PCR) Parainfluenza 4 (PCR) RSV (PCR) RSV RNA Qual (PCR) Entero/Rhino (PCR) SARS-CoV-2 RNA (RT-PCR) 08/10/24 12:26 WBC RBC Hgb Hct MCV MCH MCHC RDW Plt Count MPV Immature Gran % (Auto) Neut % (Auto) Lymph % (Auto) Storey % (Auto) Eos % (Auto) Baso % (Auto) Lymph # (Auto) [place]y # (Auto) Eos # (Auto) Baso # (Auto) Abs Immat Gran (auto) Absolute Neuts (auto) Absolute Nucleated RBC Nucleated RBC % (auto) PT INR VBG pH VBG pCO2 VBG pO2 VBG HCO3 VBG O2 Saturation VBG Base Excess Sodium Potassium Chloride Carbon Dioxide Anion Gap BUN Creatinine Estim Creat Clear Calc Estimated GFR Random Glucose Lactic Acid Calcium Magnesium Total Bilirubin AST ALT Alkaline Phosphatase Ammonia B-Natriuretic Peptide Total Protein Albumin TSH Urine Opiates Screen Ur Buprenorphine Scrn Ur Oxycodone Screen Urine Methadone Screen Urine Fentanyl Screen Ur Barbiturates Screen Ur Phencyclidine Scrn Ur Amphetamines Screen U Benzodiazepines Scrn Urine Cocaine Screen U Marijuana (THC) Screen Ethyl Alcohol Respiratory Panel Taylor See Note Adenovirus (Rapid PCR) Not Detected B.pert (TEM-PCR) Not Detected B.parapertussis DNA PCR Not Detected C. pneumoniae DNA (PCR) Not Detected Coronavirus OC43 (PCR) Not Detected Coronavirus HKU1 (PCR) Not Detected Coronavirus 229E (PCR) Not Detected Coronavirus NL63 (PCR) Not Detected Human Metapneumovir PCR Not Detected Influenza A (RT-PCR) Not Detected Influenza A (H1) PCR Not Detected Influ A (H1/09) PCR Not Detected Influenza A (H3) PCR Not Detected Influenza Type A (PCR) Influenza B (RT-PCR) Not Detected Influenza Type B (PCR) M. pneumoniae (PCR) Not Detected Parainfluenza 1 (PCR) Not Detected Parainfluenza 2 (PCR) Not Detected Parainfluenza 3 (PCR) Not Detected Parainfluenza 4 (PCR) Not Detected RSV (PCR) Not Detected RSV RNA Qual (PCR) Entero/Rhino (PCR) Not Detected SARS-CoV-2 RNA (RT-PCR) Not Detected Mental Status Exam Mental Status Exam Patient Appearance: Unkempt Level of Consciousness: Restless Patient Behavior: Impulsive Affect Description: Labile Speech Pattern: Rambling and Mumbled Judgement: Poor Medications Medications Current Medications Acetaminophen (Acetaminophen 325 Mg Tablet) 650 mg PO Q6H PRN PRN Reason: Pain, Mild 1-3,fever,headache Al Hydroxide/Mg Hydroxide (Magnesium Hydrox/Alum Hydrox 30 Ml Oral.Susp) 30 ml PO QID PRN PRN Reason: Constipation Calcium Carbonate (Calcium Carbonate 750 Mg Tab.Chew) 750 mg PO Q4H PRN PRN Reason: Heartburn Clonazepam (Clonazepam 1 Mg Tablet) 1 mg PO TID@0630,1200,1800 [facility] Last Admin: 08/10/24 12:19 Dose: 1 mg Docusate Sodium (Docusate Sodium 100 Mg Capsule) 100 mg PO BID PRN PRN Reason: Constipation Gabapentin (Gabapentin 400 Mg Capsule) 800 mg PO TID@0800,1300,1900 [facility] Last Admin: 08/10/24 12:19 Dose: 800 mg Guaifenesin (Guaifenesin La 600 Mg Tab.Er.12h) 1,200 mg PO BID PRN PRN Reason: Cough Hydroxyzine HCl (Hydroxyzine Hcl 50 Mg Tablet) 50 mg PO Q4H PRN PRN Reason: Anxiety Ampicillin Sodium/Sulbactam (Sodium 3 gm/ Sodium Chloride) 100 mls @ 200 mls/hr IV Q6H [facility] Last Infusion: 08/10/24 12:50 Dose: Infused Magnesium Sulfate (Magnesium Sulfate/H2o) 2 gm in 50 mls @ 25 mls/hr IV ONCE ONE Stop: 08/10/24 16:02 Ibuprofen (Ibuprofen 400 Mg Tablet) 400 mg PO Q8H PRN PRN Reason: Pain, Moderate(Pain Scale 4-6) Loperamide HCl (Loperamide Hcl 2 Mg Capsule) 2 mg PO Q4H PRN PRN Reason: Diarrhea Magnesium Hydroxide (Milk Of Magnesia 30 Ml Oral.Susp) 30 ml PO DAILY PRN PRN Reason: Constipation Melatonin (Melatonin 3 Mg Tablet) 3 mg PO BEDTIME PRN PRN Reason: insomnia Methadone HCl (Methadone Hcl 20 Mg/2 Ml Oral.Conc) 45 mg PO DAILY [facility] Mirtazapine (Mirtazapine 15 Mg Tablet) 15 mg PO BEDTIME@1900 [facility] Nicotine (Nicotine 21 Mg Patch.Td24) 21 mg TRANSDERMA DAILY PRN PRN Reason: Smoking Cessation Ondansetron HCl (Ondansetron Hcl 4 Mg/2 Ml Vial) 4 mg IVPUSH Q8H PRN PRN Reason: Nausea and Vomiting Last Admin: 08/10/24 08:36 Dose: 4 mg Pantoprazole Sodium (Pantoprazole Sodium 40 Mg/10 Ml Vial) 40 mg IVPUSH BID@0630,1630 [facility] Last Admin: 08/10/24 05:59 Dose: 40 mg Prazosin HCl (Prazosin Hcl 1 Mg Capsule) 1 mg PO BEDTIME@1900 [facility]; Protocol Quetiapine Fumarate (Quetiapine Fumarate 200 Mg Tablet) 200 mg PO BID@0800,1300 [facility] Last Admin: 08/10/24 12:20 Dose: 200 mg Quetiapine Fumarate (Quetiapine Fumarate 400 Mg Tablet) 400 mg PO BEDTIME@1900 [facility] Senna (Sennosides 8.6 Mg Tablet) 17.2 mg PO DAILY PRN PRN Reason: Constipation Sodium Chloride (0.9 % Sodium Chloride Flush 3 Ml Syringe) 3 ml IVFLUSH QSHIFT [facility] Last Admin: 08/10/24 08:37 Dose: 3 ml Thiamine HCl (Thiamine Hcl 100 Mg Tablet) 100 mg PO DAILY [facility] Last Admin: 08/10/24 08:36 Dose: 100 mg Allergies Allergies Allergy/AdvReac Type Severity Reaction Status Date / Time Unable to Assess Allergy Verified 08/09/24 16:03 Assessment & Plan Assessment & Plan (1) Opioid use disorder: Status: Acute Code(s): F11.90 - Opioid use, unspecified, uncomplicated Assessment and Plan: * concern that patient may have used fentanyl while at * increase in methadone dose is not indicated as patient appears overmedicated at time of eval. * QTc shortened from initial (578 to 505), however she is taking high doses of seroquel that also increases risk of QT prolongation. (2) Toxic encephalopathy: Status: Acute Code(s): G92.9 - Unspecified toxic encephalopathy Assessment and Plan: * unclear what baseline is, however she is currently taking very high doses of clonazepam(1mg TID) gabapentin (800mg TID) and seroquel (200mg BID and 400mg HS) which may be contributing to her presentation. * consider decrease in doses/polypharmacy Total time managing care of this patient today _25___ minutes. PMFSH Past Medical History Medical History Mood disorder Social History Social History Unable to assess alcohol history related to: Unable to respond Use of substances other than those prescribed or required for medical reasons: Unable to respond Advance Directives: No Advance Directives Information Provided: No service: No
[2024-08-10] MEDS: Magnesium Sulfate/H2O 2 GM/50 ML PIGGYBACK IV (15:34)
[2024-08-10] MEDS: Potassium Chloride ER 20 MEQ TAB.ER.PRT PO (15:34)
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
[2024-08-10 18:37] VITALS: BP 113/72; PULSE 104; RESP 18; TEMP 36.4; O2SAT 92
[2024-08-10] MEDS: Mirtazapine 15 MG TABLET PO (18:37)
[2024-08-10] MEDS: Prazosin HCL 1 MG CAPSULE PO (18:37)
[2024-08-10] MEDS: QUEtiapine Fumarate 400 MG TABLET PO (18:37)
--- NOTE | 2024-08-10 18:48 | PC.NURSE ---
pt refused bed alarm, refusing bed to be at lowest height, and will only let right bed rail be raised. sitter in room.
[2024-08-10] MEDS: hydrOXYzine HCL 50 MG TABLET PO (23:10)
--- NOTE | 2024-08-10 23:23 | PC.NURSE ---
Patient is still slightly drowsy, appears steady on feet. Refuses camera and turns bed alarm off by herself. Encouraged to comply with high fall risk requirements and use call hernandez for assistance.
[2024-08-11] MEDS: 0.9 % Sodium Chloride Flush 3 ML SYRINGE IVFLUSH ×4 (00:08→19:50)
[2024-08-11] MEDS: Ampicillin Sodium/Sulbactam Na 3 GM in 0.9 % Sodium Chloride 100 ML IV ×3 (00:08→11:58)
[2024-08-11 01:20] VITALS: BP 126/80; PULSE 92; RESP 18; TEMP 36.4; O2SAT 92
[2024-08-11] MEDS: Melatonin 3 MG TABLET PO (01:20)
[2024-08-11] MEDS: Pantoprazole Sodium 40 MG/10 ML VIAL IVPUSH ×2 (06:00→15:56)
[2024-08-11] MEDS: clonazePAM 1 MG TABLET PO ×3 (06:00→17:34)
[2024-08-11 07:23] VITALS: BP 112/68; PULSE 76; RESP 16; TEMP 36.8; O2SAT 93
[2024-08-11] MEDS: QUEtiapine Fumarate 200 MG TABLET PO ×2 (07:28→13:11)
[2024-08-11] MEDS: Thiamine HCL 100 MG TABLET PO (07:29)
[2024-08-11] MEDS: methADONE HCl 20 MG/2 ML ORAL.CONC 45 MG PO (07:29)
[2024-08-11 07:59] LABS: Magnesium 1.8 mg/dL (1.6-2.6)
[2024-08-11] MEDS: Gabapentin 400 MG CAPSULE 800 MG PO ×3 (08:35→18:30)
--- NOTE | 2024-08-11 09:55 | MHC.CM.PN ---
pt from [place] where she was living on the streets pt reports that she has a pcp a dr austen kay know last name at [facility] on [address] pt came from [facility] where it is expected she will retune when medically stable
--- NOTE | 2024-08-11 12:14 | MHC.RECOVRN ---
Attempted to meet with pt in 352 to follow up and provide support. Pt awake, not alert, difficult to engage in conversation due to slurring and mumbling words. Pts eyes remain closed throughout attempted conversation. Does not appear to be experiencing withdrawal. T/w available if needed.
--- NOTE | 2024-08-11 13:12 | HO.PM.IMPN ---
Subjective Subjective Date of Service: 08/11/24 Interval History: seen and evaluated this morning remains anxious and restless QTc improved no other events Review of Systems Review of Systems: Yes all other systems are reviewed and are negative Physical Exam Vital Signs: Vital Signs: Last Vital Signs Temp 98.3 F 08/11/24 07:23 Pulse 76 08/11/24 07:23 Resp 16 08/11/24 07:23 BP 112/68 08/11/24 07:23 Pulse Ox 93 08/11/24 07:23 O2 Del Method Room Air 08/11/24 07:23 O2 Flow Rate 2 08/10/24 05:53 BMI result Body Mass Index 25.1 Const: Other: Constitutional : Awake, interactive, not in distress Neck : Normal inspection, Supple Cardiovascular : RRR, no JVP, no lower extremity edema Respiratory : good bilateral air entry, no crackles, wheezes or rhonchi Gastrointestinal: soft, lax, Normal bowel sounds, Non tender Skin : Warm, Dry Neurological : Alert & oriented x3, No focal deficit Psychiatry: restless, agitated Objective Data Active Medications Acetaminophen (Acetaminophen 325 Mg Tablet) 650 mg PO Q6H PRN PRN Reason: Pain, Mild 1-3,fever,headache Al Hydroxide/Mg Hydroxide (Magnesium Hydrox/Alum Hydrox 30 Ml Oral.Susp) 30 ml PO QID PRN PRN Reason: Constipation Calcium Carbonate (Calcium Carbonate 750 Mg Tab.Chew) 750 mg PO Q4H PRN PRN Reason: Heartburn Clonazepam (Clonazepam 1 Mg Tablet) 1 mg PO TID@0630,1200,1800 [facility] Last Admin: 08/11/24 11:58 Dose: 1 mg Documented By: SNATOSH Docusate Sodium (Docusate Sodium 100 Mg Capsule) 100 mg PO BID PRN PRN Reason: Constipation Gabapentin (Gabapentin 400 Mg Capsule) 800 mg PO TID@0800,1300,1900 [facility] Last Admin: 08/11/24 13:11 Dose: 800 mg Documented By: SANTOSH Guaifenesin (Guaifenesin La 600 Mg Tab.Er.12h) 1,200 mg PO BID PRN PRN Reason: Cough Hydroxyzine HCl (Hydroxyzine Hcl 50 Mg Tablet) 50 mg PO Q4H PRN PRN Reason: Anxiety Last Admin: 08/10/24 23:10 Dose: 50 mg Documented By: MARIEL Ibuprofen (Ibuprofen 400 Mg Tablet) 400 mg PO Q8H PRN PRN Reason: Pain, Moderate(Pain Scale 4-6) Loperamide HCl (Loperamide Hcl 2 Mg Capsule) 2 mg PO Q4H PRN PRN Reason: Diarrhea Magnesium Hydroxide (Milk Of Magnesia 30 Ml Oral.Susp) 30 ml PO DAILY PRN PRN Reason: Constipation Melatonin (Melatonin 3 Mg Tablet) 3 mg PO BEDTIME PRN PRN Reason: insomnia Last Admin: 08/11/24 01:20 Dose: 3 mg Documented By: MARIEL Methadone HCl (Methadone Hcl 20 Mg/2 Ml Oral.Conc) 45 mg PO DAILY [facility] Last Admin: 08/11/24 07:29 Dose: 45 mg Documented By: SANTOSH Co-signed By: AARON Mirtazapine (Mirtazapine 15 Mg Tablet) 15 mg PO BEDTIME@1900 [facility] Last Admin: 08/10/24 18:37 Dose: 15 mg Documented By: NANCY Nicotine (Nicotine 21 Mg Patch.Td24) 21 mg TRANSDERMA DAILY PRN PRN Reason: Smoking Cessation Ondansetron HCl (Ondansetron Hcl 4 Mg/2 Ml Vial) 4 mg IVPUSH Q8H PRN PRN Reason: Nausea and Vomiting Last Admin: 08/10/24 08:36 Dose: 4 mg Documented By: ADILENE Pantoprazole Sodium (Pantoprazole Sodium 40 Mg/10 Ml Vial) 40 mg IVPUSH BID@0630,1630 [facility] Last Admin: 08/11/24 06:00 Dose: 40 mg Documented By: MARIEL Prazosin HCl (Prazosin Hcl 1 Mg Capsule) 1 mg PO BEDTIME@1900 [facility]; Protocol Last Admin: 08/10/24 18:37 Dose: 1 mg Documented By: NANCY Quetiapine Fumarate (Quetiapine Fumarate 200 Mg Tablet) 200 mg PO BID@0800,1300 [facility] Last Admin: 08/11/24 13:11 Dose: 200 mg Documented By: SANTOSH Quetiapine Fumarate (Quetiapine Fumarate 400 Mg Tablet) 400 mg PO BEDTIME@1900 [facility] Last Admin: 08/10/24 18:37 Dose: 400 mg Documented By: NANCY Senna (Sennosides 8.6 Mg Tablet) 17.2 mg PO DAILY PRN PRN Reason: Constipation Sodium Chloride (0.9 % Sodium Chloride Flush 3 Ml Syringe) 3 ml IVFLUSH QSHIFT [facility] Last Admin: 08/11/24 07:27 Dose: 3 ml Documented By: SANTOSH Thiamine HCl (Thiamine Hcl 100 Mg Tablet) 100 mg PO DAILY [facility] Last Admin: 08/11/24 07:29 Dose: 100 mg Documented By: SANTOSH Labs 08/10/24 04:56 08/10/24 04:56 Labs: Laboratory Results - last 24 hr 08/10/24 08/11/24 12:26 07:14 Magnesium 1.8 Respiratory Panel Taylor See Note Adenovirus (Rapid PCR) Not Detected B.pert (TEM-PCR) Not Detected B.parapertussis DNA PCR Not Detected C. pneumoniae DNA (PCR) Not Detected Coronavirus OC43 (PCR) Not Detected Coronavirus HKU1 (PCR) Not Detected Coronavirus 229E (PCR) Not Detected Coronavirus NL63 (PCR) Not Detected Human Metapneumovir PCR Not Detected Influenza A (RT-PCR) Not Detected Influenza A (H1) PCR Not Detected Influ A (H1/09) PCR Not Detected Influenza A (H3) PCR Not Detected Influenza B (RT-PCR) Not Detected M. pneumoniae (PCR) Not Detected Parainfluenza 1 (PCR) Not Detected Parainfluenza 2 (PCR) Not Detected Parainfluenza 3 (PCR) Not Detected Parainfluenza 4 (PCR) Not Detected RSV (PCR) Not Detected Entero/Rhino (PCR) Not Detected SARS-CoV-2 RNA (RT-PCR) Not Detected Microbiology Microbiology Results: Microbiology 08/09/24 21:28 Blood Culture - Preliminary Blood - Venous No growth after 24 hours. 08/09/24 21:23 Blood Culture - Preliminary Blood - Venous No growth after 24 hours. Assessment and Plan (1) Opioid use disorder: Status: Acute (2) Altered mental status: Status: Acute (3) Mood disorder: Status: Acute (4) Toxic encephalopathy: Status: Acute (5) Aspiration pneumonia: Status: Acute (6) Acute hypoxemic respiratory failure: Status: Acute Plan This is a 33-year-old female with pertinent history of mood disorder, polysubstance use disorder, alcohol use disorder who was brought from [facility] for evaluation of decreased responsiveness. # Acute hypoxemic respiratory failure due to aspiration pneumonia Not septic negative cultures Continue IV Unasyn. # Acute toxic encephalopathy in the setting of fentanyl use: UDS positive for fentanyl Addiction Team following for methadone dosing Monitor for withdrawal. # Coffee-ground emesis continue IV Protonix Advance diet reports that she ate choclate prior to vomiting. no recurrence since then monitor H&H. consider GI eval if drops # Mood disorder restart Clonazepam, Seroquel Care team eval for possible placement for psychiatric problems # Prolonged QTc likely chronicly elevated given her home medications correct electrolytes repeat EKG showing improvement from 590 to 500s DVT prophylaxis: Mechanical Full code Admit as inpatient and will require overnight hospital stay for supplemental oxygen, IV antibiotics (as above), which is not possible in a lesser acute setting. Quality Stroke Does the patient have a stroke diagnosis?: No VTE Prior VTE?: No VTE Risk Level:: Medical - moderate - high VTE Device Contraindication: Treatment Not Indicated VTE Drug Contraindication: N/A - Med Ordered
[2024-08-11 15:06] VITALS: BP 116/72; PULSE 94; RESP 17; TEMP 36.7; O2SAT 92
[2024-08-11 18:29] VITALS: BP 111/69; PULSE 92
[2024-08-11] MEDS: QUEtiapine Fumarate 400 MG TABLET PO (18:30)
[2024-08-11] MEDS: Mirtazapine 15 MG TABLET PO (18:30)
[2024-08-11] MEDS: Prazosin HCL 1 MG CAPSULE PO (18:30)
[2024-08-11 19:33] VITALS: BP 120/62; PULSE 91; RESP 18; TEMP 36.3; O2SAT 93
[2024-08-12] MEDS: Ibuprofen 400 MG TABLET PO (02:39)
[2024-08-12 02:45] VITALS: BP 127/74; PULSE 72; RESP 20; TEMP 36.1; O2SAT 94
[2024-08-12] MEDS: Pantoprazole Sodium 40 MG/10 ML VIAL IVPUSH (06:01)
[2024-08-12] MEDS: clonazePAM 1 MG TABLET PO ×3 (06:01→17:31)
[2024-08-12 07:41] VITALS: BP 109/72; PULSE 104; RESP 20; TEMP 36.7; O2SAT 98
[2024-08-12] MEDS: methADONE HCl 20 MG/2 ML ORAL.CONC 45 MG PO (08:45)
[2024-08-12] MEDS: 0.9 % Sodium Chloride Flush 3 ML SYRINGE IVFLUSH ×2 (08:46→14:08)
[2024-08-12] MEDS: QUEtiapine Fumarate 200 MG TABLET PO ×2 (08:46→14:08)
[2024-08-12] MEDS: Thiamine HCL 100 MG TABLET PO (08:46)
[2024-08-12] MEDS: Gabapentin 400 MG CAPSULE 800 MG PO ×3 (08:51→18:24)
[2024-08-12] MEDS: hydrOXYzine HCL 50 MG TABLET PO (08:51)
--- NOTE | 2024-08-12 10:03 | PC.NURSE ---
Patient refused sequentials,risks explained,encouraged ambulation
--- NOTE | 2024-08-12 10:08 | P.PNIM_ITS ---
Subjective Subjective Date of Service: 08/12/24 Interval History: seen and evaluated this morning less anxious and restless asking for higher dose Methadone no other events Review of Systems Review of Systems: Yes all other systems are reviewed and are negative Physical Exam 2 Vital Signs: Vital Signs: Last Vital Signs Temp 98.1 F 08/12/24 07:41 Pulse 104 H 08/12/24 07:41 Resp 20 08/12/24 07:41 BP 109/72 08/12/24 07:41 Pulse Ox 98 08/12/24 07:41 O2 Del Method Room Air 08/12/24 07:41 O2 Flow Rate 2 08/10/24 05:53 BMI result Body Mass Index 25.1 Const: Other: Constitutional : Awake, interactive, not in distress Neck : Normal inspection, Supple Cardiovascular : RRR, no JVP, no lower extremity edema Respiratory : good bilateral air entry, no crackles, wheezes or rhonchi Gastrointestinal: soft, lax, Normal bowel sounds, Non tender Skin : Warm, Dry Neurological : Alert & oriented x3, No focal deficit Psychiatry: restless, agitated Objective Data Active Medications Acetaminophen (Acetaminophen 325 Mg Tablet) 650 mg PO Q6H PRN PRN Reason: Pain, Mild 1-3,fever,headache Al Hydroxide/Mg Hydroxide (Magnesium Hydrox/Alum Hydrox 30 Ml Oral.Susp) 30 ml PO QID PRN PRN Reason: Constipation Calcium Carbonate (Calcium Carbonate 750 Mg Tab.Chew) 750 mg PO Q4H PRN PRN Reason: Heartburn Clonazepam (Clonazepam 1 Mg Tablet) 1 mg PO TID@0630,1200,1800 [facility] Last Admin: 08/12/24 06:01 Dose: 1 mg Documented By: MARIEL Docusate Sodium (Docusate Sodium 100 Mg Capsule) 100 mg PO BID PRN PRN Reason: Constipation Gabapentin (Gabapentin 400 Mg Capsule) 800 mg PO TID@0800,1300,1900 [facility] Last Admin: 08/12/24 08:51 Dose: 800 mg Documented By: SANTOSH Guaifenesin (Guaifenesin La 600 Mg Tab.Er.12h) 1,200 mg PO BID [facility] Hydroxyzine HCl (Hydroxyzine Hcl 50 Mg Tablet) 50 mg PO Q4H PRN PRN Reason: Anxiety Last Admin: 08/12/24 08:51 Dose: 50 mg Documented By: SANTOSH Ibuprofen (Ibuprofen 400 Mg Tablet) 400 mg PO Q8H PRN PRN Reason: Pain, Moderate(Pain Scale 4-6) Last Admin: 08/12/24 02:39 Dose: 400 mg Documented By: MARIEL Loperamide HCl (Loperamide Hcl 2 Mg Capsule) 2 mg PO Q4H PRN PRN Reason: Diarrhea Magnesium Hydroxide (Milk Of Magnesia 30 Ml Oral.Susp) 30 ml PO DAILY PRN PRN Reason: Constipation Melatonin (Melatonin 3 Mg Tablet) 3 mg PO BEDTIME PRN PRN Reason: insomnia Last Admin: 08/11/24 01:20 Dose: 3 mg Documented By: MARIEL Methadone HCl (Methadone Hcl 20 Mg/2 Ml Oral.Conc) 45 mg PO DAILY [facility] Last Admin: 08/12/24 08:45 Dose: 45 mg Documented By: SANTOSH Co-signed By: AARON Mirtazapine (Mirtazapine 15 Mg Tablet) 15 mg PO BEDTIME@1900 [facility] Last Admin: 08/11/24 18:30 Dose: 15 mg Documented By: SANTOSH Nicotine (Nicotine 21 Mg Patch.Td24) 21 mg TRANSDERMA DAILY PRN PRN Reason: Smoking Cessation Ondansetron HCl (Ondansetron Hcl 4 Mg/2 Ml Vial) 4 mg IVPUSH Q8H PRN PRN Reason: Nausea and Vomiting Last Admin: 08/10/24 08:36 Dose: 4 mg Documented By: ADILENE Pantoprazole Sodium (Pantoprazole Sodium 40 Mg/10 Ml Vial) 40 mg IVPUSH BID@0630,1630 [facility] Last Admin: 08/12/24 06:01 Dose: 40 mg Documented By: MARIEL Prazosin HCl (Prazosin Hcl 1 Mg Capsule) 1 mg PO BEDTIME@1900 [facility]; Protocol Last Admin: 08/11/24 18:30 Dose: 1 mg Documented By: SANTOSH Quetiapine Fumarate (Quetiapine Fumarate 200 Mg Tablet) 200 mg PO BID@0800,1300 [facility] Last Admin: 08/12/24 08:46 Dose: 200 mg Documented By: SANTOSH Quetiapine Fumarate (Quetiapine Fumarate 400 Mg Tablet) 400 mg PO BEDTIME@1900 [facility] Last Admin: 08/11/24 18:30 Dose: 400 mg Documented By: SANTOSH Senna (Sennosides 8.6 Mg Tablet) 17.2 mg PO DAILY PRN PRN Reason: Constipation Sodium Chloride (0.9 % Sodium Chloride Flush 3 Ml Syringe) 3 ml IVFLUSH QSHIFT [facility] Last Admin: 08/12/24 08:46 Dose: 3 ml Documented By: SANTOSH Thiamine HCl (Thiamine Hcl 100 Mg Tablet) 100 mg PO DAILY [facility] Last Admin: 08/12/24 08:46 Dose: 100 mg Documented By: SANTOSH Labs 08/10/24 04:56 08/10/24 04:56 Microbiology Microbiology Results: Microbiology 08/09/24 21:28 Blood Culture - Preliminary Blood - Venous No growth after 48 hours. 08/09/24 21:23 Blood Culture - Preliminary Blood - Venous No growth after 48 hours. Assessment and Plan (1) Opioid use disorder: Status: Acute (2) Altered mental status: Status: Acute (3) Aspiration pneumonia: Status: Acute (4) Acute hypoxemic respiratory failure: Status: Acute Plan This is a 33-year-old female with pertinent history of mood disorder, polysubstance use disorder, alcohol use disorder who was brought from [facility] for evaluation of decreased responsiveness. # Acute hypoxemic respiratory failure due to aspiration pneumonia Not septic negative cultures Continue IV Unasyn. wean O2 down as tolerated # Acute toxic encephalopathy in the setting of fentanyl use: UDS positive for fentanyl Polypharmacy; will need psych evaluation for medications changes Addiction Team following for methadone dosing , not to increase at this stage Monitor for withdrawal. # Coffee-ground emesis reports that she ate choclate prior to vomiting. no recurrence since then, stable H&H switch IV Protonix to PO Omeprazole Advance diet monitor H&H. consider GI eval if drops # Mood disorder continue Clonazepam, Seroquel Care team eval for possible placement for psychiatric problems # Prolonged QTc likely chronicly elevated given her home medications correct electrolytes repeat EKG showing improvement from 590 to 500s DVT prophylaxis: Mechanical Full code Admit as inpatient and will require overnight hospital stay for supplemental oxygen, IV antibiotics, which is not possible in a lesser acute setting. Quality Stroke Does the patient have a stroke diagnosis?: No VTE Prior VTE?: No VTE Risk Level:: Medical - moderate - high VTE Device Contraindication: Treatment Not Indicated VTE Drug Contraindication: N/A - Med Ordered
[2024-08-12] MEDS: guaiFENesin LA 600 MG TAB.ER.12H 1200 MG PO ×2 (10:25→20:22)
[2024-08-12 15:19] VITALS: BP 111/78; PULSE 98; RESP 15; TEMP 36.5; O2SAT 94
[2024-08-12 15:52] LABS: Alanine Aminotransferase 64 U/L (0-31); Albumin Level 3.7 g/dL (3.5-5.0); Aspartate Amino Transferase 55 U/L (5-31); Bilirubin Direct 0.1 mg/dL (0.0-0.5); Bilirubin Total 0.4 mg/dL (0.0-1.0)
[2024-08-12 17:02] LABS: Alkaline Phosphatase 81 U/L (39-117)
[2024-08-12 18:23] VITALS: BP 109/72
[2024-08-12] MEDS: Prazosin HCL 1 MG CAPSULE PO (18:23)
[2024-08-12] MEDS: Mirtazapine 15 MG TABLET PO (18:24)
[2024-08-12] MEDS: QUEtiapine Fumarate 400 MG TABLET PO (18:24)
[2024-08-12 19:58] VITALS: BP 96/69; PULSE 111; RESP 18; TEMP 36.3; O2SAT 92
[2024-08-12] MEDS: Melatonin 3 MG TABLET PO (22:17)
[2024-08-13 03:25] VITALS: BP 105/63; PULSE 94; RESP 16; TEMP 36.5; O2SAT 94
[2024-08-13] MEDS: hydrOXYzine HCL 50 MG TABLET PO ×2 (03:26→07:26)
[2024-08-13] MEDS: clonazePAM 1 MG TABLET PO ×3 (05:53→11:47)
[2024-08-13] MEDS: Omeprazole 40 MG CAPSULE.DR PO (05:53)
[2024-08-13] MEDS: Ibuprofen 400 MG TABLET PO (05:55)
[2024-08-13 07:17] VITALS: BP 122/69; PULSE 92; RESP 16; TEMP 36; O2SAT 95
[2024-08-13] MEDS: methADONE HCl 20 MG/2 ML ORAL.CONC 45 MG PO (07:26)
[2024-08-13] MEDS: Thiamine HCL 100 MG TABLET PO (07:26)
[2024-08-13] MEDS: QUEtiapine Fumarate 200 MG TABLET PO (07:26)
[2024-08-13] MEDS: Gabapentin 400 MG CAPSULE 800 MG PO (07:49)
[2024-08-13] MEDS: guaiFENesin LA 600 MG TAB.ER.12H 1200 MG PO (07:50)
[2024-08-13] MEDS: 0.9 % Sodium Chloride Flush 3 ML SYRINGE IVFLUSH (07:52)
[2024-08-13 09:18] LABS: Alanine Aminotransferase 55 U/L (0-31); Alkaline Phosphatase 87 U/L (39-117); Anion Gap 12 (12-20); Aspartate Amino Transferase 39 U/L (5-31); Bilirubin Direct 0.1 mg/dL (0.0-0.5); Bilirubin Total 0.3 mg/dL (0.0-1.0); Blood Urea Nitrogen 14 mg/dL (9-16); Calcium 9.1 mg/dL (8.4-10.2); Carbon Dioxide 26 mmol/L (22-29); Chloride 106 mmol/L (96-108); Creatinine Clr Calc Pharmacy 93.2; Estimated Glomerular Filt Rate > 60; Glucose Random 103 mg/dL (60-115); Potassium 4.2 mmol/L (3.3-5.1); Sodium 140 mmol/L (135-145); Total Protein 7.5 g/dL (6.5-8.0)
[2024-08-13 09:39] LABS: HBS Num1 > 1000.00 mIU/mL (0-7.99); HBsAGNum1 0.27 S/CO (0.00-0.99); Hepatitis B Core Antibody Nonreactive (Nonreactive); Hepatitis B Surface Antigen Negative (Negative); ~HepC Num1 13.46 S/CO (0.00-0.79); ~Hepatitis B Surface Antibody REACTIVE (Nonreactive); ~Hepatitis C Antibody Reactive (Nonreactive)
--- NOTE | 2024-08-13 10:48 | PM.DS ---
DS: Providers Provider Date of Service: 08/13/24 Date of admission: 08/09/24 23:22 Date of discharge: 08/13/24 Primary care physician: Unknown Physician Consults: 08/09/24 23:22 Addiction Medicine Provider Routine Consulting Provider: Sisi Scales Reason for consultation: fentanyl use disorder 08/11/24 11:12 Inpt CARE Team Crisis Consult Routine Comment: Reason for consultation: medically clear, placement needed. DS: Diagnosis Discharge Diagnosis (1) Opioid use disorder: Status: Acute (2) Altered mental status: Status: Acute (3) Aspiration pneumonia: Status: Acute (4) Acute hypoxemic respiratory failure: Status: Acute DS: Summary Hospital Course Hospital Course: Admission note HPI This is a 33-year-old female with pertinent history of mood disorder, polysubstance use disorder, alcohol use disorder who was brought from [facility] for evaluation of decreased responsiveness. Patient awakens to verbal stimulus but goes back asleep immediately so unable to obtain history from the patient. Withdraws extremities to painful stimulus. History obtained from ER provider and chart review. Patient was noted to be with decreased responsiveness and was sent to the ER for further evaluation. In the emergency department pinpoint pupils noted and patient was given Narcan. She was also found to be hypoxic and placed on 4 L supplemental oxygen in the ER. Also reports of questionable coffee-ground emesis at [facility]. Unable to obtain review of systems. In the emergency department, imaging concerning for ground-glass opacities with bilateral pleural effusions. Hospital course The patient was treated for: # Acute hypoxemic respiratory failure due to aspiration pneumonia. She was not septic on admission. Has negative blood cultures. Treated with IV Unasyn with good response as she was weaned O2 down as tolerated. To finish 5 more days of Augmentin. # Acute toxic encephalopathy in the setting of fentanyl use. UDS positive for fentanyl. She also has Polypharmacy with high dosage of sedating medications. She will need psych evaluation for medications changes as she was evaluated by Addiction Team for methadone dosing who recommended not to increase at this stage. Mentation improved back to baseline. # Coffee-ground emesis was very questionable as she reported that she ate chocolate prior to vomiting. no recurrence since then, stable H&H. Started on IV Protonix then PO Omeprazole with good tolerance with advanced diet. # Mood disorder. continue Clonazepam, Seroquel. Care team evaluated the patient and recommended placement for psychiatric problems # Prolonged QTc. likely chronically elevated given her home medications. improved to 505 after correcting electrolytes. Time Attestation Discharge Coordination Time (in mins): 42 Quality: Safe Use of Opioids Does Pt have an Active Cancer Diagnosis on the Problem List?: No Quality: Stroke Does the patient have a stroke diagnosis?: No Physical Exam Vital Signs: Vital Signs: Last Vital Signs Temp 96.8 F 08/13/24 07:17 Pulse 92 08/13/24 07:17 Resp 16 08/13/24 07:17 BP 122/69 08/13/24 07:17 Pulse Ox 95 08/13/24 07:17 O2 Del Method Room Air 08/13/24 07:17 O2 Flow Rate 2 08/10/24 05:53 BMI result Body Mass Index 25.1 Const: Other: Constitutional : Awake, interactive, not in distress Neck : Normal inspection, Supple Cardiovascular : RRR, no JVP, no lower extremity edema Respiratory : good bilateral air entry, no crackles, wheezes or rhonchi Gastrointestinal: soft, lax, Normal bowel sounds, Non tender Skin : Warm, Dry Neurological : Alert & oriented x3, No focal deficit Psychiatry: restless, agitated DS: Data Data Completed and Pending Labs on day of discharge: Laboratory Results - last 24 hr 08/11/24 08/13/24 07:14 07:58 Sodium 140 Potassium 4.2 Chloride 106 Carbon Dioxide 26 Anion Gap 12 BUN 14 Creatinine 0.73 Estim Creat Clear Calc 93.2 Estimated GFR > 60 Random Glucose 103 Calcium 9.1 Total Bilirubin 0.4 0.3 Direct Bilirubin 0.1 0.1 AST 55 H 39 H ALT 64 H 55 H Alkaline Phosphatase 81 87 Total Protein 7.0 7.5 Albumin 3.7 4.0 Hep Bs Antigen Negative Hep Bs Antibody REACTIVE Hep B Core Total Ab Nonreactive Hepatitis C Ab (EIA) Reactive H Preliminary micro results at discharge 08/09/24 21:28 Blood Culture - Preliminary Blood - Venous No growth after 48 hours. 08/09/24 21:23 Blood Culture - Preliminary Blood - Venous No growth after 48 hours. Imaging Chest x-ray: Radiologist's impression: CT Impression: [id number] ill-defined ground-glass opacities identified diffusely throughout the bilateral lungs with minimal bilateral pleural effusions. These findings may be consistent with pulmonary edema or an atypical/viral infection. 5 mm right middle lobe nodule. Recommend no follow-up in low risk, and optional [address] follow-up in high-risk patients according to Fleischner criteria. Moderate T7 vertebral body compression deformity. This may be chronic in etiology based on its appearance, however clinical correlation is advised given the lack of comparison imaging. This document has been electronically signed by: Henrry Ayon MD on 08/09/2024 23:24:22 Discharge Plan Discharge Anticipated Discharge Date/Time: 08/13/24 10:40 Patient Disposition: Xfer Psychiatric Hosp Discharge Diagnosis: Aspiration pneumonia Opioid use disorder Mood disorder Referrals: Physician,Unknown J [Primary Care Provider] - 1 Week Discharge Medications: New omeprazole 40 mg Capsule,Delayed Release(Dr/Ec) 40 mg PO DAILY@0630 Qty: 90 0RF amoxicillin-pot clavulanate 875-125 mg tablet 1 tab PO BID Qty: 10 0RF Continued sennosides [senna] 8.6 mg Tablet 17.2 mg PO DAILY PRN (Reason: Constipation) acetaminophen 325 mg tablet 650 mg PO Q4H PRN (Reason: pain) loperamide 2 mg Capsule 2 mg PO Q4H PRN (Reason: Diarrhea) Rx Instructions: administer after each loose stool until symptoms controlled; do not exceed 8 mg per 24 hrs prazosin 1 mg Capsule 1 mg PO BEDTIME@1900 Protocol: Hold for SBP< HOLD for SBP < : 90 Rx Instructions: check and document BP prior to giving gabapentin 400 mg capsule 800 mg PO TID@0800,1300,1900 quetiapine 200 mg Tablet 200 mg PO BID@0800,1300 clonazepam 1 mg Tablet 1 mg PO TID@0630,1200,1800 Rx Instructions: hold if patient has had Ativan for [place] within last two hours hydroxyzine pamoate 50 mg Capsule 50 mg PO Q4H PRN (Reason: Anxiety) melatonin 3 mg tablet 3 mg PO BEDTIME PRN (Reason: insomnia) magnesium hydroxide 400 mg/5 mL Suspension 30 ml PO DAILY PRN (Reason: Constipation) ibuprofen 400 mg tablet 400 mg PO Q8H PRN (Reason: Pain) nicotine 21 mg/24 hr patch 24 hour 1 patch topical DAILY PRN (Reason: Smoking Cessation) Rx Instructions: Remove at bedtime>15 cigarettes daily docusate sodium 100 mg Capsule 100 mg PO BID PRN (Reason: Constipation) Rx Instructions: hold for loose stool calcium carbonate 500 mg calcium (1,250 mg) Tablet,Chewable 500 mg PO Q4H PRN (Reason: Heartburn) mirtazapine 15 mg Tablet 15 mg PO BEDTIME@1900 alum-mag hydroxide-simeth 200-200-20 mg/5 mL Suspension 30 ml PO QID PRN (Reason: Constipation) Rx Instructions: administer between meals and at bedtime lorazepam 1 mg Tablet 1 mg PO Q1H PRN (Reason: Withdrawal Symptoms) Rx Instructions: If CIWA 15 or greater Recheck CIWA in 1 hour call provider if total lorazapam above 12 mg in 24 hours ondansetron 4 mg Tablet,Disintegrating 4 mg PO Q6H PRN (Reason: Nausea And Vomiting) quetiapine 400 mg Tablet 400 mg PO BEDTIME@1900 guaifenesin 600 mg Tablet Extended Release 12hr 1,200 mg PO BID MDD 2400 mg/24 h PRN (Reason: Cough) methadone [Methadone Intensol] 10 mg/mL Concentrate 45 mg PO DAILY Diet: Advance to usual diet Activity on Discharge: As tolerated Stand Alone Forms: Patient Portal Discharge page Print Language: Beninese
[2024-08-13] MEDS: Amoxicillin/Potassium Clav 875 MG TABLET PO (11:17)
--- NOTE | 2024-08-13 11:46 | MHC.CM.PN ---
PT CLEARED MEDICALLY, CARE TEAM CONDUCTING AN IPLOC BED SEARCH
[2024-08-13 11:47] LABS: UPreg QC Valid YES; Urine Pregnancy NEGATIVE (NEGATIVE)
== END 2024-08-13 11:58 | DRG 137 ==
LOC: HO.ED 19:28 → HO.EDOVER 23:41 → HO.S3 08-10 17:28
PROVIDERS: Admitting Provider Student in an Organized Health Care Education/Training Program; Emergency Provider Internal Medicine; Visit Provider Student in an Organized Health Care Education/Training Program
DX: J69.0 Pneumonitis due to inhalation of food and vomit (principal); J96.01 Acute respiratory failure with hypoxia; G92.8 Other toxic encephalopathy; F17.210 Nicotine dependence, cigarettes, uncomplicated; F19.10 Other psychoactive substance abuse, uncomplicated; Z71.6 Tobacco abuse counseling; F11.20 Opioid dependence, uncomplicated; Z20.822 Contact with and (suspected) exposure to COVID-19; Z79.899 Other long term (current) drug therapy
CPT/HCPCS: 0241U; 36415; 70450; 71045; 71250; 74176; 80048; 80053; 80076; 80307; 81025; 82140; 82803; 83605; 83735; 83880; 84443; 85014; 85018; 85025; 85610; 86704; 86706; 86803; 87040; 87340; 87633; 93005; 99285; J0295; J1650; J2310; J2405; J2470; J2543; J3411; J3475; S9485

== ENCOUNTER → 2024-08-09 16:10 | Outpatient (BNV) | payer OTHER, SELFPAY | PROVIDERS: Admitting Provider Student in an Organized Health Care Education/Training Program; Emergency Provider Internal Medicine; Visit Provider Internal Medicine Cardiovascular Disease | DX: R94.31 Abnormal electrocardiogram [ECG] [EKG] (principal); F13.20 Sedative, hypnotic or anxiolytic dependence, uncomplicated | CPT/HCPCS: 93010 ==

== ENCOUNTER → 2024-08-09 16:40 | Outpatient (BNV) | payer OTHER, SELFPAY | PROVIDERS: Emergency Provider Internal Medicine; Visit Provider Radiology Diagnostic Radiology | DX: R10.9 Unspecified abdominal pain (principal); J96.01 Acute respiratory failure with hypoxia; R41.82 Altered mental status, unspecified | CPT/HCPCS: 70450; 71045; 71250; 74176 ==

== ENCOUNTER 2024-08-09 23:22 | Outpatient (BNV) | payer OTHER, SELFPAY | END 2024-08-10 13:32 | PROVIDERS: Admitting Provider Student in an Organized Health Care Education/Training Program; Emergency Provider Internal Medicine; Visit Provider Internal Medicine Cardiovascular Disease | DX: R94.31 Abnormal electrocardiogram [ECG] [EKG] (principal); F13.20 Sedative, hypnotic or anxiolytic dependence, uncomplicated | CPT/HCPCS: 93010 ==

== ENCOUNTER → 2024-08-09 23:22 | Outpatient (BNV) | payer OTHER, SELFPAY | PROVIDERS: Admitting Provider Student in an Organized Health Care Education/Training Program; Emergency Provider Internal Medicine; Visit Provider Nurse Practitioner Psychiatric/Mental Health | DX: F11.90 Opioid use, unspecified, uncomplicated (principal); G92.9 Unspecified toxic encephalopathy | CPT/HCPCS: 99222 ==

== ENCOUNTER → 2024-08-09 23:22 | Outpatient (BNV) | payer OTHER, SELFPAY | PROVIDERS: Admitting Provider Student in an Organized Health Care Education/Training Program; Emergency Provider Internal Medicine; Visit Provider Student in an Organized Health Care Education/Training Program | DX: F11.90 Opioid use, unspecified, uncomplicated (principal); R41.82 Altered mental status, unspecified; J69.0 Pneumonitis due to inhalation of food and vomit; J96.01 Acute respiratory failure with hypoxia | CPT/HCPCS: 99233; 99239 ==

== ENCOUNTER 2024-08-13 11:47 | Inpatient (IN) | payer OTHER, SELFPAY ==
[2024-08-13 12:48] VITALS: BP 131/78; PULSE 108; RESP 16; TEMP 37.2; O2SAT 95
[2024-08-13 14:32] VITALS: BMI 24.9
[2024-08-13] MEDS: clonazePAM 0.5 MG TABLET PO (15:54)
[2024-08-13] MEDS: Gabapentin 400 MG CAPSULE PO (15:56)
[2024-08-13] MEDS: QUEtiapine Fumarate 200 MG TABLET PO (15:56)
[2024-08-13 16:40] LABS: Creatinine Clr Calc Pharmacy 91.8; Estimated Glomerular Filt Rate > 60
--- NOTE | 2024-08-13 17:07 | PC.NURSE ---
This is the 1st admission for this 33 y.o. woman to [facility] at [facility]. Arrived on unit at 1223 and placed on 15 min safety checks. Nurse to nurse done with [facility] prior to admission. Doc to doc done prior. Precipitating events to admission: brought to [facility] 08/09/24 from [facility] due to unresponsiveness, coffee like vomiting. Admitted medically from [facility] to [facility]. Per nurse to nurse pt had been receiving IV antibiotic for aspiration pneumonia and changed to po upon discharge from medical unit. Recently started on Omeprazole due to questions of ulcers with report of coffee ground emesis. Presumed to have been sent to [facility] from [facility]; admitted to [facility] 07/31/24. Difficult to understand pt at times due to rapid speech when anxious/upset. Disorganized, hyperverbal and restless during admission process. Declined seat, preferring to stand over this justowriter operator during assessment. Redirection, limit setting needed at times re: personal boundaries. Reports chronic use of heroin, crack and etoh. Reports last use of all substances possibly 07/29/24. Accepting of addiction counselor consult. Tox screen positive for Fentanyl, Methadone 08/09/24. Pt reports she was recently placed on Methadone, poor historian. Tangential during conversations. Denies SI/HI. Reports AH/VH due to having Dx of Schizophrenia. Does not like to say what AH are saying. States VH is of a horrible person/entity. Admission orders received from Dr Mann. Meds verified with med list from [facility]. Arrived on unit on Sect 12A, signed CV after meeting with Dr Mann. Agitation noted, swearing loudly in milieu at 1515 stating she had not receiving 1200/1300 meds. Did well with limit setting and feedback that concerns would be addressed re: afternoon meds. Received Klonopin 0.5 mg, Gabapentin 400 mg at 1556, decreased doses due to next dosages due at 1800 [address] Mann. Received Seroquel 200 mg at 1556 which would have been due at [address] Mann.
[2024-08-13] MEDS: Mirtazapine 15 MG TABLET PO (18:46)
[2024-08-13] MEDS: QUEtiapine Fumarate 400 MG TABLET PO (18:46)
[2024-08-13] MEDS: clonazePAM 1 MG TABLET PO (18:47)
[2024-08-13 18:49] VITALS: BP 93/60; PULSE 107; RESP 16; TEMP 36.8; O2SAT 94
[2024-08-13] MEDS: Prazosin HCL 1 MG CAPSULE PO (18:51)
[2024-08-13] MEDS: Gabapentin 400 MG CAPSULE 800 MG PO (18:57)
[2024-08-13] MEDS: Amoxicillin/Potassium Clav 875 MG TABLET PO (20:15)
[2024-08-13 20:16] VITALS: BP 100/57; PULSE 111; RESP 16; TEMP 37.4; O2SAT 95
[2024-08-14] MEDS: Omeprazole 40 MG CAPSULE.DR PO (06:13)
[2024-08-14] MEDS: clonazePAM 1 MG TABLET PO ×2 (06:13→12:29)
[2024-08-14 08:00] VITALS: BP 119/71; PULSE 111; RESP 16; TEMP 37.1; O2SAT 94
[2024-08-14] MEDS: methADONE HCl 20 MG/2 ML ORAL.CONC 45 MG PO (08:05)
[2024-08-14] MEDS: Gabapentin 400 MG CAPSULE 800 MG PO ×3 (08:06→21:50)
[2024-08-14] MEDS: Amoxicillin/Potassium Clav 875 MG TABLET PO ×2 (08:06→21:49)
[2024-08-14] MEDS: QUEtiapine Fumarate 200 MG TABLET PO ×2 (08:06→12:29)
[2024-08-14 08:31] LABS: Estimated Average Glucose 111 mg/dL; Hemoglobin A1C 113.6587 umol/L; Hemoglobin A1c % 5.5 % (<6.0); Total Hemoglobin (HGBA1C) 3123.3657 umol/L
[2024-08-14 08:34] LABS: Cholesterol 199 mg/dL (<200); HDL Cholesterol 59 mg/dL (>40); LDL Cholesterol Calculated 93 mg/dL (<100); Triglycerides 236 mg/dL (<150)
[2024-08-14] MEDS: Nicotine 21 MG PATCH.TD24 TRANSDERMA (08:40)
[2024-08-14 08:50] LABS: Thyroid Stimulating Hormone 3.61 uIU/mL (0.32-4.0)
[2024-08-14 09:02] LABS: Folate 8.2 ng/mL (> or = 4.0); Vitamin B12 738 pg/mL (200-900)
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
[2024-08-14] MEDS: clonazePAM 1 MG TABLET 0.75 MG PO (17:23)
[2024-08-14] MEDS: Perphenazine 4 MG TABLET PO ×2 (17:23→21:50)
[2024-08-14] MEDS: Mirtazapine 30 MG TABLET PO (18:11)
[2024-08-14] MEDS: traZODone HCL 50 MG TABLET PO ×2 (18:11→21:50)
[2024-08-14] MEDS: QUEtiapine Fumarate 400 MG TABLET PO (18:11)
[2024-08-14 18:12] VITALS: BP 125/62
[2024-08-14] MEDS: Melatonin 3 MG TABLET PO (18:12)
[2024-08-14] MEDS: Prazosin HCL 1 MG CAPSULE 2 MG PO (18:12)
[2024-08-14 20:00] VITALS: RESP 16
--- NOTE | 2024-08-14 21:54 | PC.NURSE ---
AMOXICILLIN AND GABAPENTIN NOT GIVEN EARLIER IN DAY GIVEN WITH HS MEDICATION.
[2024-08-15] MEDS: Perphenazine 4 MG TABLET PO ×2 (02:55→08:43)
[2024-08-15] MEDS: Acetaminophen 325 MG TABLET 650 MG PO (02:58)
[2024-08-15] MEDS: hydrOXYzine HCL 25 MG TABLET PO (02:59)
--- NOTE | 2024-08-15 03:03 | PC.NURSE ---
on rising at approximately 0300 presents as sedated but agitated. ''I'm not sleeping'' patient has slept at least 6.5 hours at this time taking medications early in shift. reports ''I want my regular dose of klonopin back and I want to be back on seroquel'' ''I am having auditory and visual hallucinations''
[2024-08-15] MEDS: Gabapentin 400 MG CAPSULE 800 MG PO ×3 (06:34→18:23)
[2024-08-15] MEDS: clonazePAM 1 MG TABLET 0.75 MG PO ×3 (06:34→18:20)
[2024-08-15] MEDS: Omeprazole 40 MG CAPSULE.DR PO (06:35)
[2024-08-15] MEDS: Amoxicillin/Potassium Clav 875 MG TABLET PO ×2 (06:35→18:23)
[2024-08-15 08:00] VITALS: BP 118/78; PULSE 101; RESP 14; TEMP 36.9; O2SAT 94
[2024-08-15] MEDS: methADONE HCl 20 MG/2 ML ORAL.CONC 45 MG PO (08:37)
[2024-08-15] MEDS: QUEtiapine Fumarate 100 MG TABLET PO ×4 (08:43→15:59)
[2024-08-15] MEDS: Nicotine 21 MG PATCH.TD24 TRANSDERMA (11:35)
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
[2024-08-15 18:16] VITALS: BP 120/64; PULSE 102; RESP 16; TEMP 36.6; O2SAT 94
[2024-08-15] MEDS: QUEtiapine Fumarate 400 MG TABLET PO (18:23)
[2024-08-15] MEDS: Prazosin HCL 1 MG CAPSULE 3 MG PO (18:23)
[2024-08-15] MEDS: Capsaicin 0.025% Cream 60 GM TUBE 1 APPL TOPICAL (19:01)
[2024-08-15 20:00] VITALS: RESP 16
[2024-08-15] MEDS: Melatonin 3 MG TABLET PO (21:02)
[2024-08-16] MEDS: clonazePAM 1 MG TABLET 0.75 MG PO (05:41)
[2024-08-16] MEDS: QUEtiapine Fumarate 100 MG TABLET PO ×2 (05:41→11:29)
[2024-08-16] MEDS: Amoxicillin/Potassium Clav 875 MG TABLET PO ×2 (05:41→18:40)
[2024-08-16] MEDS: Omeprazole 40 MG CAPSULE.DR PO (05:41)
[2024-08-16] MEDS: Gabapentin 400 MG CAPSULE 800 MG PO (05:41)
[2024-08-16 07:00] VITALS: BMI 26.0
[2024-08-16 08:00] VITALS: BP 97/61; PULSE 94; RESP 16; TEMP 36.4; O2SAT 94
[2024-08-16] MEDS: methADONE HCl 20 MG/2 ML ORAL.CONC 45 MG PO (08:16)
[2024-08-16] MEDS: Gabapentin 300 MG CAPSULE 600 MG PO ×2 (12:58→18:40)
[2024-08-16] MEDS: clonazePAM 0.5 MG TABLET PO ×2 (12:58→17:31)
--- NOTE | 2024-08-16 15:58 | P.PNPSI_ITS ---
Subjective Subjective Date of Service: 08/16/24 Reason For Visit: Overdose Interim History: sedated, asleep at table in milieu, midway through ice cream. irritable, labile, angry when managing to keep her eyes open, otherwise somnolent and falling asleep. informed of various medication decreases. per staff, i just want to if he isn't going to give me what i need. slept 8 hours. intermittently sedated. Mental Status Exam Mental Status Exam Narrative: disheveled, hospital [facility]. questionably cooperative. PMR of falling asleep alternating with PMA yelling, gesticulating. speech none versus incr rate, incr amount, incr loudness, decr latency. thoughts rambling, generally on meds she wants, though. affect constricted, hyper-intense, labile. mood not assessed. endorses SI. no HI/VH expressed. c/o AH. Diagnostics Vital Signs (24Hr): Vital Signs - 24 hr 08/15/24 18:16 08/15/24 20:00 08/16/24 08:00 Temperature 98 F 97.6 F Pulse Rate 102 H 94 Respiratory Rate 16 16 16 Blood Pressure 120/64 97/61 Pulse Oximetry 94 94 Oxygen Delivery Method Room Air Room Air BMI result Body Mass Index 26.0 Labs 08/13/24 16:08 Medications Medications Current Medications Acetaminophen (Acetaminophen 325 Mg Tablet) 650 mg PO Q6H PRN PRN Reason: Headache/Pain, Scale 1-10 Last Admin: 08/15/24 02:58 Dose: 650 mg Al Hydroxide/Mg Hydroxide (Magnesium Hydrox/Alum Hydrox 30 Ml Oral.Susp) 30 ml PO Q6H PRN PRN Reason: Heartburn/Nausea Amoxicillin/Clavulanate Potassium (Amoxicillin/Potassium Clav 875 Mg Tablet) 875 mg PO BID@0630,1900 INDER Last Admin: 08/16/24 05:41 Dose: 875 mg Calcium Carbonate (Calcium Oyster Shell Elemental 500 Mg Tablet) 500 mg PO Q4H PRN PRN Reason: Heartburn Capsaicin (Capsaicin 0.025% Cream 60 Gm Tube) 1 appl TOPICAL QID PRN; Protocol PRN Reason: ankle/hip pain Last Admin: 08/15/24 19:01 Dose: 1 appl Clonazepam (Clonazepam 0.5 Mg Tablet) 0.5 mg PO TID@0630,1200,1800 [facility] Last Admin: 08/16/24 12:58 Dose: 0.5 mg Docusate Sodium (Docusate Sodium 100 Mg Capsule) 100 mg PO BID PRN PRN Reason: Constipation Gabapentin (Gabapentin 300 Mg Capsule) 600 mg PO TID@0630,1300,1900 [facility] Last Admin: 08/16/24 12:58 Dose: 600 mg Guaifenesin (Guaifenesin La 600 Mg Tab.Er.12h) 1,200 mg PO BID PRN PRN Reason: Cough Loperamide HCl (Loperamide Hcl 2 Mg Capsule) 2 mg PO Q4H PRN PRN Reason: Diarrhea Magnesium Hydroxide (Milk Of Magnesia 30 Ml Oral.Susp) 30 ml PO DAILY PRN PRN Reason: Constipation Melatonin (Melatonin 3 Mg Tablet) 3 mg PO BEDTIME PRN PRN Reason: insomnia Last Admin: 08/15/24 21:02 Dose: 3 mg Methadone HCl (Methadone Hcl 20 Mg/2 Ml Oral.Conc) 45 mg PO DAILY@0800 [facility] Last Admin: 08/16/24 08:16 Dose: 45 mg Nicotine (Nicotine 21 Mg Patch.Td24) 21 mg TRANSDERMA DAILY PRN PRN Reason: Smoking Cessation Last Admin: 08/15/24 11:35 Dose: 21 mg Nicotine Polacrilex (Nicotine Polacrilex 2 Mg Gum) 4 mg BUCCAL Q2H PRN PRN Reason: Nicotine Cravings Omeprazole (Omeprazole 40 Mg Capsule.Dr) 40 mg PO DAILY@0630 [facility] Last Admin: 08/16/24 05:41 Dose: 40 mg Ondansetron HCl (Ondansetron Odt 4 Mg Tab.Rapdis) 4 mg TRANSLINGU Q6H PRN PRN Reason: Nausea And Vomiting Prazosin HCl (Prazosin Hcl 1 Mg Capsule) 3 mg PO BEDTIME@1900 [facility]; Protocol Last Admin: 08/15/24 18:23 Dose: 3 mg Quetiapine Fumarate (Quetiapine Fumarate 400 Mg Tablet) 400 mg PO BEDTIME@1900 [facility] Last Admin: 08/15/24 18:23 Dose: 400 mg Quetiapine Fumarate (Quetiapine Fumarate 50 Mg Tablet) 50 mg PO TID PRN PRN Reason: agitation Senna (Sennosides 8.6 Mg Tablet) 17.2 mg PO DAILY PRN PRN Reason: Constipation Allergies Allergies Allergy/AdvReac Type Severity Reaction Status Date / Time Unable to Assess Allergy Verified 08/09/24 16:03 Assessment & Plan Assessment & Plan (1) Opioid use disorder: Status: Acute Code(s): F11.90 - Opioid use, unspecified, uncomplicated (2) Aspiration pneumonia: Status: Acute Code(s): J69.0 - Pneumonitis due to inhalation of food and vomit (3) Cocaine use disorder: Status: Acute Code(s): F14.10 - Cocaine abuse, uncomplicated (4) Mood disorder: Status: Acute Code(s): F39 - Unspecified mood [affective] disorder Plan 08/14: increase HS prazosin to 2 mg for insomnia/nightmares. increase HS remeron to 30 for insomnia. decrease seroquel BID to 100 mg each, add perphenazine 4 mg BID. complete cross-taper tomorrow. due to sedation, weight. continue methadone 45 mg daily for now. pt asking for more sedating medications but can barely remain awake. 08/15: sedation alternating with agitation. increase HS prazosin to 3 mg. DC remeron as likely not needed. DC perphenazine per pt request, reinstate seroquel BID at 100 mg, leave HS dose at 400 mg. continue methadone at 45. continue klonopin 0.75 TID, decrease to 0.5 TID as of tomorrow. 08/16: sedation alternating with agitation. decrease klonopin to 0.5 TID. decrease gabapentin to 600 TID. decrease seroquel during the day to 50 mg each dose, TID PRN. otherwise continue prior mgmt. Reason for continued inpatient stay Substantial Risk for: inability to function Time Spent With Patient Time: Total time managing care of this patient today __25__ minutes.
[2024-08-16 18:39] VITALS: BP 104/62; PULSE 106; RESP 16; TEMP 36.9; O2SAT 94
[2024-08-16] MEDS: QUEtiapine Fumarate 400 MG TABLET PO (18:41)
[2024-08-16] MEDS: Prazosin HCL 1 MG CAPSULE 3 MG PO (18:41)
[2024-08-17] MEDS: QUEtiapine Fumarate 50 MG TABLET PO ×2 (02:20→08:37)
[2024-08-17] MEDS: Melatonin 3 MG TABLET PO (02:20)
[2024-08-17] MEDS: clonazePAM 0.5 MG TABLET PO ×3 (06:28→17:17)
[2024-08-17] MEDS: Amoxicillin/Potassium Clav 875 MG TABLET PO ×2 (06:28→18:11)
[2024-08-17] MEDS: Omeprazole 40 MG CAPSULE.DR PO (06:29)
[2024-08-17] MEDS: Gabapentin 300 MG CAPSULE 600 MG PO (06:29)
[2024-08-17 07:05] VITALS: BP 102/57; PULSE 101; RESP 14; TEMP 37.2; O2SAT 96
[2024-08-17] MEDS: methADONE HCl 20 MG/2 ML ORAL.CONC 45 MG PO (08:16)
[2024-08-17] MEDS: HaloperidoL 5 MG TABLET PO ×2 (10:42→14:08)
[2024-08-17] MEDS: Capsaicin 0.025% Cream 60 GM TUBE 1 APPL TOPICAL (11:02)
[2024-08-17] MEDS: Gabapentin 400 MG CAPSULE PO ×2 (12:55→18:11)
--- NOTE | 2024-08-17 13:19 | HO.PSYCHPN ---
Subjective Subjective Date of Service: 08/17/24 Reason For Visit: Overdose Interim History: sedated, slurring her speech, all the while protesting any decrease in her medications. appears agreeable to DC seroquel in favor of haldol for AH. very agitated on mention of methadone dose decrease , reports she is in withdrawal. per staff, 3-day up tuesday. sedated. c/o dep/anx 10. sleeping very well. Mental Status Exam Mental Status Exam Narrative: disheveled, hospital [facility]. questionably cooperative. PMR of falling asleep alternating with PMA of raising her voice, gesticulating. speech none versus incr rate, incr amount, incr loudness, decr latency. thoughts rambling, generally on meds she wants, though. affect constricted, hyper-intense, labile. mood not assessed. no SI/HI/VH expressed. c/o AH. Diagnostics Vital Signs (24Hr): Vital Signs - 24 hr 08/16/24 18:39 08/17/24 07:05 Temperature 98.5 F 98.9 F Pulse Rate 106 H 101 H Respiratory Rate 16 14 Blood Pressure 104/62 102/57 L Pulse Oximetry 94 96 Oxygen Delivery Method Room Air Room Air BMI result Body Mass Index 26.0 Labs 08/13/24 16:08 Medications Medications Current Medications Acetaminophen (Acetaminophen 325 Mg Tablet) 650 mg PO Q6H PRN PRN Reason: Headache/Pain, Scale 1-10 Last Admin: 08/15/24 02:58 Dose: 650 mg Al Hydroxide/Mg Hydroxide (Magnesium Hydrox/Alum Hydrox 30 Ml Oral.Susp) 30 ml PO Q6H PRN PRN Reason: Heartburn/Nausea Amoxicillin/Clavulanate Potassium (Amoxicillin/Potassium Clav 875 Mg Tablet) 875 mg PO BID@0630,1900 [facility] Last Admin: 08/17/24 06:28 Dose: 875 mg Calcium Carbonate (Calcium Oyster Shell Elemental 500 Mg Tablet) 500 mg PO Q4H PRN PRN Reason: Heartburn Capsaicin (Capsaicin 0.025% Cream 60 Gm Tube) 1 appl TOPICAL QID PRN; Protocol PRN Reason: ankle/hip pain Last Admin: 08/17/24 11:02 Dose: 1 appl Clonazepam (Clonazepam 0.5 Mg Tablet) 0.5 mg PO TID@0630,1200,1800 [facility] Last Admin: 08/17/24 12:07 Dose: 0.5 mg Docusate Sodium (Docusate Sodium 100 Mg Capsule) 100 mg PO BID PRN PRN Reason: Constipation Gabapentin (Gabapentin 400 Mg Capsule) 400 mg PO TID@0630,1300,1900 [facility] Last Admin: 08/17/24 12:55 Dose: 400 mg Guaifenesin (Guaifenesin La 600 Mg Tab.Er.12h) 1,200 mg PO BID PRN PRN Reason: Cough Haloperidol (Haloperidol 5 Mg Tablet) 5 mg PO TID PRN PRN Reason: AH/anxiety Last Admin: 08/17/24 10:42 Dose: 5 mg Loperamide HCl (Loperamide Hcl 2 Mg Capsule) 2 mg PO Q4H PRN PRN Reason: Diarrhea Magnesium Hydroxide (Milk Of Magnesia 30 Ml Oral.Susp) 30 ml PO DAILY PRN PRN Reason: Constipation Melatonin (Melatonin 3 Mg Tablet) 3 mg PO BEDTIME PRN PRN Reason: insomnia Last Admin: 08/17/24 02:20 Dose: 3 mg Methadone HCl (Methadone Hcl 20 Mg/2 Ml Oral.Conc) 45 mg PO DAILY@0800 [facility] Last Admin: 08/17/24 08:16 Dose: 45 mg Nicotine (Nicotine 21 Mg Patch.Td24) 21 mg TRANSDERMA DAILY PRN PRN Reason: Smoking Cessation Last Admin: 08/15/24 11:35 Dose: 21 mg Nicotine Polacrilex (Nicotine Polacrilex 2 Mg Gum) 4 mg BUCCAL Q2H PRN PRN Reason: Nicotine Cravings Omeprazole (Omeprazole 40 Mg Capsule.Dr) 40 mg PO DAILY@0630 [facility] Last Admin: 08/17/24 06:29 Dose: 40 mg Ondansetron HCl (Ondansetron Odt 4 Mg Tab.Rapdis) 4 mg TRANSLINGU Q6H PRN PRN Reason: Nausea And Vomiting Prazosin HCl (Prazosin Hcl 1 Mg Capsule) 3 mg PO BEDTIME@1900 [facility]; Protocol Last Admin: 08/16/24 18:41 Dose: 3 mg Quetiapine Fumarate (Quetiapine Fumarate 400 Mg Tablet) 400 mg PO BEDTIME@1900 [facility] Last Admin: 08/16/24 18:41 Dose: 400 mg Senna (Sennosides 8.6 Mg Tablet) 17.2 mg PO DAILY PRN PRN Reason: Constipation Allergies Allergies Allergy/AdvReac Type Severity Reaction Status Date / Time Unable to Assess Allergy Verified 08/09/24 16:03 Assessment & Plan Assessment & Plan (1) Opioid use disorder: Status: Acute Code(s): F11.90 - Opioid use, unspecified, uncomplicated (2) Aspiration pneumonia: Status: Acute Code(s): J69.0 - Pneumonitis due to inhalation of food and vomit (3) Cocaine use disorder: Status: Acute Code(s): F14.10 - Cocaine abuse, uncomplicated (4) Mood disorder: Status: Acute Code(s): F39 - Unspecified mood [affective] disorder Plan 08/14: increase HS prazosin to 2 mg for insomnia/nightmares. increase HS remeron to 30 for insomnia. decrease seroquel BID to 100 mg each, add perphenazine 4 mg BID. complete cross-taper tomorrow. due to sedation, weight. continue methadone 45 mg daily for now. pt asking for more sedating medications but can barely remain awake. 08/15: sedation alternating with agitation. increase HS prazosin to 3 mg. DC remeron as likely not needed. DC perphenazine per pt request, reinstate seroquel BID at 100 mg, leave HS dose at 400 mg. continue methadone at 45. continue klonopin 0.75 TID, decrease to 0.5 TID as of tomorrow. 08/16: sedation alternating with agitation. decrease klonopin to 0.5 TID. decrease gabapentin to 600 TID. decrease seroquel during the day to 50 mg each dose, TID PRN. otherwise continue prior mgmt. 08/17: sedation alternating with agitation. decrease klonopin to 0.25 TID tomorrow. decrease gabapentin to 400 TID. DC seroquel during the day, retain 400 at HS. haldol 5 mg TID PRN AH. otherwise continue prior mgmt. if pt is not presenting differently tomorrow, will decrease methadone by 5 mg daily. 3-day notice withdrawn. Reason for continued inpatient stay Substantial Risk for: inability to function Time Spent With Patient Time: Total time managing care of this patient today __35__ minutes.
[2024-08-17 18:11] VITALS: BP 117/70
[2024-08-17] MEDS: Prazosin HCL 1 MG CAPSULE 3 MG PO (18:11)
[2024-08-17] MEDS: QUEtiapine Fumarate 400 MG TABLET PO (18:11)
[2024-08-17 19:50] VITALS: BP 109/63; PULSE 94; RESP 15; TEMP 36.8; O2SAT 99
[2024-08-18] MEDS: clonazePAM 0.5 MG TABLET PO ×2 (06:34→11:45)
[2024-08-18] MEDS: Gabapentin 400 MG CAPSULE PO ×3 (06:34→20:03)
[2024-08-18] MEDS: Amoxicillin/Potassium Clav 875 MG TABLET PO ×2 (06:34→20:03)
[2024-08-18] MEDS: Omeprazole 40 MG CAPSULE.DR PO (06:34)
[2024-08-18 08:00] VITALS: BP 112/69; PULSE 109; RESP 14; TEMP 36.9; O2SAT 94
[2024-08-18] MEDS: methADONE HCl 20 MG/2 ML ORAL.CONC 45 MG PO (08:04)
[2024-08-18] MEDS: HaloperidoL 5 MG TABLET PO ×3 (08:24→20:07)
--- NOTE | 2024-08-18 18:44 | HO.PSYCHPN ---
Subjective Subjective Date of Service: 08/18/24 Reason For Visit: Overdose Interim History: c/o depression overwhelming her. no mention of anxiety today. soundly sleeping in her room, rousable to loud voice. sleeping well. asking for anti-depressant, which deferred so as not to further complicate medications regimen. pt unhappy with restraint in prescribing. per staff, flat. retracted 3-day notice. irritable. using PRNs. pleasant later int he day. asleep all leah. Mental Status Exam Mental Status Exam Narrative: disheveled, own clothes. cooperative. no PMA/PMR. speech generally incr rate, incr amount, incr loudness, decr latency. thoughts rambling, generally on meds she wants. affect constricted, hyper-intense, mod-labile. mood depressed. no SI/HI/AVH expressed. Diagnostics Vital Signs (24Hr): Vital Signs - 24 hr 08/17/24 19:50 08/18/24 08:00 Temperature 98.3 F 98.5 F Pulse Rate 94 109 H Respiratory Rate 15 14 Blood Pressure 109/63 112/69 Pulse Oximetry 99 94 Oxygen Delivery Method Room Air Room Air BMI result Body Mass Index 26.0 Labs 08/13/24 16:08 Medications Medications Current Medications Acetaminophen (Acetaminophen 325 Mg Tablet) 650 mg PO Q6H PRN PRN Reason: Headache/Pain, Scale 1-10 Last Admin: 08/15/24 02:58 Dose: 650 mg Al Hydroxide/Mg Hydroxide (Magnesium Hydrox/Alum Hydrox 30 Ml Oral.Susp) 30 ml PO Q6H PRN PRN Reason: Heartburn/Nausea Amoxicillin/Clavulanate Potassium (Amoxicillin/Potassium Clav 875 Mg Tablet) 875 mg PO BID@0630,1900 [facility] Last Admin: 08/18/24 06:34 Dose: 875 mg Calcium Carbonate (Calcium Oyster Shell Elemental 500 Mg Tablet) 500 mg PO Q4H PRN PRN Reason: Heartburn Capsaicin (Capsaicin 0.025% Cream 60 Gm Tube) 1 appl TOPICAL QID PRN; Protocol PRN Reason: ankle/hip pain Last Admin: 08/17/24 11:02 Dose: 1 appl Clonazepam (Clonazepam 0.5 Mg Tablet) 0.25 mg PO TID@0630,1200,1800 [facility] Docusate Sodium (Docusate Sodium 100 Mg Capsule) 100 mg PO BID PRN PRN Reason: Constipation Gabapentin (Gabapentin 400 Mg Capsule) 400 mg PO TID@0630,1300,1900 [facility] Last Admin: 08/18/24 13:09 Dose: 400 mg Guaifenesin (Guaifenesin La 600 Mg Tab.Er.12h) 1,200 mg PO BID PRN PRN Reason: Cough Haloperidol (Haloperidol 5 Mg Tablet) 5 mg PO TID PRN PRN Reason: AH/anxiety Last Admin: 08/18/24 12:18 Dose: 5 mg Loperamide HCl (Loperamide Hcl 2 Mg Capsule) 2 mg PO Q4H PRN PRN Reason: Diarrhea Magnesium Hydroxide (Milk Of Magnesia 30 Ml Oral.Susp) 30 ml PO DAILY PRN PRN Reason: Constipation Melatonin (Melatonin 3 Mg Tablet) 3 mg PO BEDTIME PRN PRN Reason: insomnia Last Admin: 08/17/24 02:20 Dose: 3 mg Methadone HCl (Methadone Hcl 20 Mg/2 Ml Oral.Conc) 45 mg PO DAILY@0800 [facility] Last Admin: 08/18/24 08:04 Dose: 45 mg Nicotine (Nicotine 21 Mg Patch.Td24) 21 mg TRANSDERMA DAILY PRN PRN Reason: Smoking Cessation Last Admin: 08/15/24 11:35 Dose: 21 mg Nicotine Polacrilex (Nicotine Polacrilex 2 Mg Gum) 4 mg BUCCAL Q2H PRN PRN Reason: Nicotine Cravings Omeprazole (Omeprazole 40 Mg Capsule.Dr) 40 mg PO DAILY@0630 [facility] Last Admin: 08/18/24 06:34 Dose: 40 mg Ondansetron HCl (Ondansetron Odt 4 Mg Tab.Rapdis) 4 mg TRANSLINGU Q6H PRN PRN Reason: Nausea And Vomiting Prazosin HCl (Prazosin Hcl 1 Mg Capsule) 3 mg PO BEDTIME@1900 [facility]; Protocol Last Admin: 08/17/24 18:11 Dose: 3 mg Quetiapine Fumarate (Quetiapine Fumarate 400 Mg Tablet) 400 mg PO BEDTIME@1900 [facility] Last Admin: 08/17/24 18:11 Dose: 400 mg Senna (Sennosides 8.6 Mg Tablet) 17.2 mg PO DAILY PRN PRN Reason: Constipation Allergies Allergies Allergy/AdvReac Type Severity Reaction Status Date / Time Unable to Assess Allergy Verified 08/09/24 16:03 Assessment & Plan Assessment & Plan (1) Opioid use disorder: Status: Acute Code(s): F11.90 - Opioid use, unspecified, uncomplicated (2) Aspiration pneumonia: Status: Acute Code(s): J69.0 - Pneumonitis due to inhalation of food and vomit (3) Cocaine use disorder: Status: Acute Code(s): F14.10 - Cocaine abuse, uncomplicated (4) Mood disorder: Status: Acute Code(s): F39 - Unspecified mood [affective] disorder Plan 08/14: increase HS prazosin to 2 mg for insomnia/nightmares. increase HS remeron to 30 for insomnia. decrease seroquel BID to 100 mg each, add perphenazine 4 mg BID. complete cross-taper tomorrow. due to sedation, weight. continue methadone 45 mg daily for now. pt asking for more sedating medications but can barely remain awake. 08/15: sedation alternating with agitation. increase HS prazosin to 3 mg. DC remeron as likely not needed. DC perphenazine per pt request, reinstate seroquel BID at 100 mg, leave HS dose at 400 mg. continue methadone at 45. continue klonopin 0.75 TID, decrease to 0.5 TID as of tomorrow. 08/16: sedation alternating with agitation. decrease klonopin to 0.5 TID. decrease gabapentin to 600 TID. decrease seroquel during the day to 50 mg each dose, TID PRN. otherwise continue prior mgmt. 08/17: sedation alternating with agitation. decrease klonopin to 0.25 TID tomorrow. decrease gabapentin to 400 TID. DC seroquel during the day, retain 400 at HS. haldol 5 mg TID PRN AH. otherwise continue prior mgmt. if pt is not presenting differently tomorrow, will decrease methadone by 5 mg daily. 3-day notice withdrawn. 08/18: sedation alternating with agitation, but seemingly more calm today than prior. c/o depression, not anxiety today. decreased klonopin to 0.25 TID. DC entirely on tuesday. continue gabapentin 400 TID. DCed seroquel during the day, retained 400 at HS. haldol 5 mg TID PRN AH. otherwise continue prior mgmt. if pt is not less sedated tomorrow, will decrease methadone by 5 mg daily. 3-day notice withdrawn. Reason for continued inpatient stay Substantial Risk for: harm to self and inability to function Time Spent With Patient Time: Total time managing care of this patient today ____ minutes.
[2024-08-18 19:05] VITALS: BP 130/65; PULSE 107; RESP 16; TEMP 36.9; O2SAT 96
[2024-08-18] MEDS: clonazePAM 0.5 MG TABLET 0.25 MG PO (20:02)
[2024-08-18] MEDS: Prazosin HCL 1 MG CAPSULE 3 MG PO (20:03)
[2024-08-18] MEDS: QUEtiapine Fumarate 400 MG TABLET PO (20:03)
[2024-08-19] MEDS: Gabapentin 400 MG CAPSULE PO ×3 (06:33→18:31)
[2024-08-19] MEDS: Omeprazole 40 MG CAPSULE.DR PO (06:33)
[2024-08-19] MEDS: clonazePAM 0.5 MG TABLET 0.25 MG PO ×3 (06:34→18:15)
[2024-08-19] MEDS: Amoxicillin/Potassium Clav 875 MG TABLET PO ×2 (06:34→18:31)
[2024-08-19 08:00] VITALS: BP 103/60; PULSE 102; RESP 16; TEMP 37.3; O2SAT 94
[2024-08-19] MEDS: methADONE HCl 20 MG/2 ML ORAL.CONC 45 MG PO (08:09)
[2024-08-19] MEDS: Ondansetron ODT 4 MG TAB.RAPDIS TRANSLINGU (15:47)
[2024-08-19] MEDS: HaloperidoL 5 MG TABLET PO (15:49)
[2024-08-19 18:26] VITALS: BP 106/66
[2024-08-19] MEDS: QUEtiapine Fumarate 400 MG TABLET PO (18:26)
[2024-08-19] MEDS: Prazosin HCL 1 MG CAPSULE 3 MG PO (18:26)
--- NOTE | 2024-08-19 20:14 | P.PNPSI_ITS ---
Subjective Subjective Date of Service: 08/19/24 Reason For Visit: Overdose Interim History: more awake than previous this admission. hang-dog. c/o depression. seems less angry/labile. agrees to no changes in regimen for today. per staff, upset re changes in medications. taking haldol PRN. c/o AVH last NOC. slept 8 hours. Mental Status Exam Mental Status Exam Narrative: disheveled, own clothes. cooperative. no PMA/PMR. speech generally decr rate, nml amount, decr loudness, incr latency. thoughts re depression. affect constricted, hypo-intense, non-labile. mood depressed. no SI/HI/AVH expressed. Diagnostics Vital Signs (24Hr): Vital Signs - 24 hr 08/19/24 08:00 08/19/24 18:26 Temperature 99.1 F Pulse Rate 102 H Respiratory Rate 16 Blood Pressure 103/60 106/66 Pulse Oximetry 94 Oxygen Delivery Method Room Air BMI result Body Mass Index 26.0 Labs 08/13/24 16:08 Medications Medications Current Medications Acetaminophen (Acetaminophen 325 Mg Tablet) 650 mg PO Q6H PRN PRN Reason: Headache/Pain, Scale 1-10 Last Admin: 08/15/24 02:58 Dose: 650 mg Al Hydroxide/Mg Hydroxide (Magnesium Hydrox/Alum Hydrox 30 Ml Oral.Susp) 30 ml PO Q6H PRN PRN Reason: Heartburn/Nausea Amoxicillin/Clavulanate Potassium (Amoxicillin/Potassium Clav 875 Mg Tablet) 875 mg PO BID@0630,1900 [facility] [place] Last Admin: 08/19/24 18:31 Dose: 875 mg Calcium Carbonate (Calcium Oyster Shell Elemental 500 Mg Tablet) 500 mg PO Q4H PRN PRN Reason: Heartburn Capsaicin (Capsaicin 0.025% Cream 60 Gm Tube) 1 appl TOPICAL QID PRN; Protocol PRN Reason: ankle/hip pain Last Admin: 08/17/24 11:02 Dose: 1 appl Clonazepam (Clonazepam 0.5 Mg Tablet) 0.25 mg PO TID@0630,1200,1800 [facility] [place] Last Admin: 08/19/24 18:15 Dose: 0.25 mg Docusate Sodium (Docusate Sodium 100 Mg Capsule) 100 mg PO BID PRN PRN Reason: Constipation Gabapentin (Gabapentin 400 Mg Capsule) 400 mg PO TID@0630,1300,1900 [facility] [place] Last Admin: 08/19/24 18:31 Dose: 400 mg Guaifenesin (Guaifenesin La 600 Mg Tab.Er.12h) 1,200 mg PO BID PRN PRN Reason: Cough Haloperidol (Haloperidol 5 Mg Tablet) 5 mg PO TID PRN PRN Reason: AH/anxiety Last Admin: 08/19/24 15:49 Dose: 5 mg Loperamide HCl (Loperamide Hcl 2 Mg Capsule) 2 mg PO Q4H PRN PRN Reason: Diarrhea Magnesium Hydroxide (Milk Of Magnesia 30 Ml Oral.Susp) 30 ml PO DAILY PRN PRN Reason: Constipation Melatonin (Melatonin 3 Mg Tablet) 3 mg PO BEDTIME PRN PRN Reason: insomnia Last Admin: 08/17/24 02:20 Dose: 3 mg Methadone HCl (Methadone Hcl 20 Mg/2 Ml Oral.Conc) 45 mg PO DAILY@0800 [facility] [place] Last Admin: 08/19/24 08:09 Dose: 45 mg Nicotine (Nicotine 21 Mg Patch.Td24) 21 mg TRANSDERMA DAILY PRN PRN Reason: Smoking Cessation Last Admin: 08/15/24 11:35 Dose: 21 mg Nicotine Polacrilex (Nicotine Polacrilex 2 Mg Gum) 4 mg BUCCAL Q2H PRN PRN Reason: Nicotine Cravings Omeprazole (Omeprazole 40 Mg Capsule.Dr) 40 mg PO DAILY@0630 [facility] [place] Last Admin: 08/19/24 06:33 Dose: 40 mg Ondansetron HCl (Ondansetron Odt 4 Mg Tab.Rapdis) 4 mg TRANSLINGU Q6H PRN PRN Reason: Nausea And Vomiting Last Admin: 08/19/24 15:47 Dose: 4 mg Prazosin HCl (Prazosin Hcl 1 Mg Capsule) 3 mg PO BEDTIME@1900 [facility] [place]; Protocol Last Admin: 08/19/24 18:26 Dose: 3 mg Quetiapine Fumarate (Quetiapine Fumarate 400 Mg Tablet) 400 mg PO BEDTIME@1900 [facility] [place] Last Admin: 08/19/24 18:26 Dose: 400 mg Senna (Sennosides 8.6 Mg Tablet) 17.2 mg PO DAILY PRN PRN Reason: Constipation Allergies Allergies Allergy/AdvReac Type Severity Reaction Status Date / Time Unable to Assess Allergy Verified 08/09/24 16:03 Assessment & Plan Assessment & Plan (1) Opioid use disorder: Status: Acute Code(s): F11.90 - Opioid use, unspecified, uncomplicated (2) Aspiration pneumonia: Status: Acute Code(s): J69.0 - Pneumonitis due to inhalation of food and vomit (3) Cocaine use disorder: Status: Acute Code(s): F14.10 - Cocaine abuse, uncomplicated (4) Mood disorder: Status: Acute Code(s): F39 - Unspecified mood [affective] disorder Plan 08/14: increase HS prazosin to 2 mg for insomnia/nightmares. increase HS remeron to 30 for insomnia. decrease seroquel BID to 100 mg each, add perphenazine 4 mg BID. complete cross-taper tomorrow. due to sedation, weight. continue methadone 45 mg daily for now. pt asking for more sedating medications but can barely remain awake. 08/15: sedation alternating with agitation. increase HS prazosin to 3 mg. DC remeron as likely not needed. DC perphenazine per pt request, reinstate seroquel BID at 100 mg, leave HS dose at 400 mg. continue methadone at 45. continue klonopin 0.75 TID, decrease to 0.5 TID as of tomorrow. 08/16: sedation alternating with agitation. decrease klonopin to 0.5 TID. decrease gabapentin to 600 TID. decrease seroquel during the day to 50 mg each dose, TID PRN. otherwise continue prior mgmt. 08/17: sedation alternating with agitation. decrease klonopin to 0.25 TID tomorrow. decrease gabapentin to 400 TID. DC seroquel during the day, retain 400 at HS. haldol 5 mg TID PRN AH. otherwise continue prior mgmt. if pt is not presenting differently tomorrow, will decrease methadone by 5 mg daily. 3-day notice withdrawn. 08/18: sedation alternating with agitation, but seemingly more calm today than prior. c/o depression, not anxiety today. decreased klonopin to 0.25 TID. DC entirely on tuesday. continue gabapentin 400 TID. DCed seroquel during the day, retained 400 at HS. haldol 5 mg TID PRN AH. otherwise continue prior mgmt. if pt is not less sedated tomorrow, will decrease methadone by 5 mg daily. 3-day notice withdrawn. 08/19: sedation alternating with agitation, but seemingly more calm today than prior, and more awake and alert. c/o depression, not anxiety today. decreased klonopin to 0.25 TID. DC entirely on tuesday. continue gabapentin 400 TID. DCed seroquel during the day, retained 400 at HS. haldol 5 mg TID PRN AH. otherwise continue prior mgmt. 3-day notice withdrawn. Reason for continued inpatient stay Substantial Risk for: inability to function Time Spent With Patient Time: Total time managing care of this patient today ____ minutes.
[2024-08-20] MEDS: Amoxicillin/Potassium Clav 875 MG TABLET PO ×2 (06:19→19:26)
[2024-08-20] MEDS: Omeprazole 40 MG CAPSULE.DR PO (06:19)
[2024-08-20] MEDS: Gabapentin 400 MG CAPSULE PO ×3 (06:20→19:26)
[2024-08-20] MEDS: clonazePAM 0.5 MG TABLET 0.25 MG PO (06:20)
[2024-08-20 07:53] VITALS: BP 109/76; PULSE 103; RESP 16; TEMP 36.6; O2SAT 95
[2024-08-20] MEDS: methADONE HCl 20 MG/2 ML ORAL.CONC 45 MG PO (07:58)
[2024-08-20] MEDS: HaloperidoL 5 MG TABLET PO ×2 (08:31→13:23)
[2024-08-20] MEDS: LORazepam 1 MG TABLET PO (12:51)
--- NOTE | 2024-08-20 13:20 | HO.PSYCHPN ---
Subjective Subjective Date of Service: 08/20/24 Reason For Visit: Overdose Interim History: sleeping, rousable to conversational voice. mumbling, garbled speech. less labile and antagonistic than prior. does note she plans to go out and overdose and after she is discharged from the hospital bcse MD is reducing her medications regimen. c/o sweatiness, malaise. believes she is in opioid withdrawal. per staff, anx/dep 10. +AH. zofran and haldol PRNs. refusing VS. slept 8 hours. Mental Status Exam Mental Status Exam Narrative: disheveled, own clothes. cooperative. no PMA/PMR. speech generally incr rate, incr amount, decr loudness, decr latency. thoughts re depression, med reductions. affect constricted, hypo-intense, irritable. mood depressed. no HI/AVH expressed. endorsing SI with plan to overdose after discharge. Diagnostics Vital Signs (24Hr): Vital Signs - 24 hr 08/19/24 18:26 08/20/24 07:53 Temperature 97.9 F Pulse Rate 103 H Respiratory Rate 16 Blood Pressure 106/66 109/76 Pulse Oximetry 95 Oxygen Delivery Method Room Air BMI result Body Mass Index 26.0 Labs 08/13/24 16:08 Medications Medications Current Medications Acetaminophen (Acetaminophen 325 Mg Tablet) 650 mg PO Q6H PRN PRN Reason: Headache/Pain, Scale 1-10 Last Admin: 08/15/24 02:58 Dose: 650 mg Al Hydroxide/Mg Hydroxide (Magnesium Hydrox/Alum Hydrox 30 Ml Oral.Susp) 30 ml PO Q6H PRN PRN Reason: Heartburn/Nausea Amoxicillin/Clavulanate Potassium (Amoxicillin/Potassium Clav 875 Mg Tablet) 875 mg PO BID@0630,1900 [facility] Last Admin: 08/20/24 06:19 Dose: 875 mg Calcium Carbonate (Calcium Oyster Shell Elemental 500 Mg Tablet) 500 mg PO Q4H PRN PRN Reason: Heartburn Capsaicin (Capsaicin 0.025% Cream 60 Gm Tube) 1 appl TOPICAL QID PRN; Protocol PRN Reason: ankle/hip pain Last Admin: 08/17/24 11:02 Dose: 1 appl Docusate Sodium (Docusate Sodium 100 Mg Capsule) 100 mg PO BID PRN PRN Reason: Constipation Gabapentin (Gabapentin 400 Mg Capsule) 400 mg PO TID@0630,1300,1900 PENDING SALE TO [facility] Last Admin: 08/20/24 12:51 Dose: 400 mg Guaifenesin (Guaifenesin La 600 Mg Tab.Er.12h) 1,200 mg PO BID PRN PRN Reason: Cough Haloperidol (Haloperidol 5 Mg Tablet) 5 mg PO TID PRN PRN Reason: AH/anxiety Last Admin: 08/20/24 08:31 Dose: 5 mg Loperamide HCl (Loperamide Hcl 2 Mg Capsule) 2 mg PO Q4H PRN PRN Reason: Diarrhea Lorazepam (Lorazepam 1 Mg Tablet) 1 mg PO Q2H PRN PRN Reason: CIWA 8-11 Last Admin: 08/20/24 12:51 Dose: 1 mg Lorazepam (Lorazepam 1 Mg Tablet) 2 mg PO Q2H PRN PRN Reason: CIWA 12-15 Lorazepam (Lorazepam 1 Mg Tablet) 3 mg PO Q2H PRN PRN Reason: CIWA > 15, and call MD Magnesium Hydroxide (Milk Of Magnesia 30 Ml Oral.Susp) 30 ml PO DAILY PRN PRN Reason: Constipation Melatonin (Melatonin 3 Mg Tablet) 3 mg PO BEDTIME PRN PRN Reason: insomnia Last Admin: 08/17/24 02:20 Dose: 3 mg Methadone HCl (Methadone Hcl 20 Mg/2 Ml Oral.Conc) 45 mg PO DAILY@0800 [facility] TO [facility] Last Admin: 08/20/24 07:58 Dose: 45 mg Nicotine (Nicotine 21 Mg Patch.Td24) 21 mg TRANSDERMA DAILY PRN PRN Reason: Smoking Cessation Last Admin: 08/15/24 11:35 Dose: 21 mg Nicotine Polacrilex (Nicotine Polacrilex 2 Mg Gum) 4 mg BUCCAL Q2H PRN PRN Reason: Nicotine Cravings Omeprazole (Omeprazole 40 Mg Capsule.Dr) 40 mg PO DAILY@0630 [facility] TO [facility] Last Admin: 08/20/24 06:19 Dose: 40 mg Ondansetron HCl (Ondansetron Odt 4 Mg Tab.Rapdis) 4 mg TRANSLINGU Q6H PRN PRN Reason: Nausea And Vomiting Last Admin: 08/19/24 15:47 Dose: 4 mg Prazosin HCl (Prazosin Hcl 1 Mg Capsule) 3 mg PO BEDTIME@1900 [facility] TO [facility]; Protocol Last Admin: 08/19/24 18:26 Dose: 3 mg Quetiapine Fumarate (Quetiapine Fumarate 400 Mg Tablet) 400 mg PO BEDTIME@1900 [facility] Last Admin: 08/19/24 18:26 Dose: 400 mg Senna (Sennosides 8.6 Mg Tablet) 17.2 mg PO DAILY PRN PRN Reason: Constipation Allergies Allergies Allergy/AdvReac Type Severity Reaction Status Date / Time Unable to Assess Allergy Verified 08/09/24 16:03 Assessment & Plan Assessment & Plan (1) Opioid use disorder: Status: Acute Code(s): F11.90 - Opioid use, unspecified, uncomplicated (2) Aspiration pneumonia: Status: Acute Code(s): J69.0 - Pneumonitis due to inhalation of food and vomit (3) Cocaine use disorder: Status: Acute Code(s): F14.10 - Cocaine abuse, uncomplicated (4) Mood disorder: Status: Acute Code(s): F39 - Unspecified mood [affective] disorder Plan 08/14: increase HS prazosin to 2 mg for insomnia/nightmares. increase HS remeron to 30 for insomnia. decrease seroquel BID to 100 mg each, add perphenazine 4 mg BID. complete cross-taper tomorrow. due to sedation, weight. continue methadone 45 mg daily for now. pt asking for more sedating medications but can barely remain awake. 08/15: sedation alternating with agitation. increase HS prazosin to 3 mg. DC remeron as likely not needed. DC perphenazine per pt request, reinstate seroquel BID at 100 mg, leave HS dose at 400 mg. continue methadone at 45. continue klonopin 0.75 TID, decrease to 0.5 TID as of tomorrow. 08/16: sedation alternating with agitation. decrease klonopin to 0.5 TID. decrease gabapentin to 600 TID. decrease seroquel during the day to 50 mg each dose, TID PRN. otherwise continue prior mgmt. 08/17: sedation alternating with agitation. decrease klonopin to 0.25 TID tomorrow. decrease gabapentin to 400 TID. DC seroquel during the day, retain 400 at HS. haldol 5 mg TID PRN AH. otherwise continue prior mgmt. if pt is not presenting differently tomorrow, will decrease methadone by 5 mg daily. 3-day notice withdrawn. 08/18: sedation alternating with agitation, but seemingly more calm today than prior. c/o depression, not anxiety today. decreased klonopin to 0.25 TID. DC entirely on tuesday. continue gabapentin 400 TID. DCed seroquel during the day, retained 400 at HS. haldol 5 mg TID PRN AH. otherwise continue prior mgmt. if pt is not less sedated tomorrow, will decrease methadone by 5 mg daily. 08/19: sedation alternating with agitation, but seemingly more calm today than prior, and more awake and alert. c/o depression, not anxiety today. decreased klonopin to 0.25 TID. DC entirely on tuesday. continue gabapentin 400 TID. DCed seroquel during the day, retained 400 at HS. haldol 5 mg TID PRN AH. otherwise continue prior mgmt. 08/20: sedation alternating with general calm but antagonistic behavior, and more awake and alert. DCed klonopin entirely 08/20. c/o sweating, malaise, nausea. CIWA with ativan per protocol as a precaution to benzo withdrawal. continue gabapentin 400 TID. DCed seroquel during the day, retained 400 at HS. haldol 5 mg TID PRN AH. otherwise continue prior mgmt. Reason for continued inpatient stay Substantial Risk for: harm to self, inability to function and rapid decompensation Time Spent With Patient Time: Total time managing care of this patient today __25__ minutes.
[2024-08-20] MEDS: Ondansetron ODT 4 MG TAB.RAPDIS TRANSLINGU (14:13)
[2024-08-20 19:26] VITALS: BP 119/73
[2024-08-20] MEDS: QUEtiapine Fumarate 400 MG TABLET PO (19:26)
[2024-08-20] MEDS: Prazosin HCL 1 MG CAPSULE 3 MG PO (19:26)
[2024-08-20 20:00] VITALS: BP 119/73; PULSE 98; RESP 16; TEMP 36.8; O2SAT 95
[2024-08-21] MEDS: Gabapentin 400 MG CAPSULE PO ×3 (06:49→18:34)
[2024-08-21] MEDS: Omeprazole 40 MG CAPSULE.DR PO (06:49)
[2024-08-21] MEDS: Amoxicillin/Potassium Clav 875 MG TABLET PO ×2 (06:49→18:34)
[2024-08-21] MEDS: methADONE HCl 20 MG/2 ML ORAL.CONC 45 MG PO (08:01)
--- NOTE | 2024-08-21 10:03 | P.PNPSI_ITS ---
Subjective Subjective Date of Service: 08/21/24 Reason For Visit: Overdose Interim History: Laying in bed. Patient reports feeling anxious and depressed; pt stated, I'm laying down because I'm anxious and have a headache . mumbled speech; difficult to understand at times. She reports auditory hallucinations telling her to self harm. difficult to engage. pt pulled bed covers over head mid-conversation and stopped conversation. Medication Compliance: Yes Side effects from medications: No Attending Groups: No Mental Status Exam Mental Status Exam Narrative: unable to obtain full mental status d/t pt keeping assessment brief. Patient Appearance: Disheveled Level of Consciousness: Drowsy Patient Behavior: Guarded and Poor Eye Contact Mood Description: Depressed and Anxious Affect Description: Blunted Ability to Follow Directions: Good Speech Pattern: Mumbled Hallucinations: Auditory Diagnostics Vital Signs (24Hr): Vital Signs - 24 hr 08/20/24 19:26 08/20/24 20:00 Temperature 98.3 F Pulse Rate 98 Respiratory Rate 16 Blood Pressure 119/73 119/73 Pulse Oximetry 95 Oxygen Delivery Method Room Air BMI result Body Mass Index 26.0 Labs 08/13/24 16:08 Medications Medications Current Medications Acetaminophen (Acetaminophen 325 Mg Tablet) 650 mg PO Q6H PRN PRN Reason: Headache/Pain, Scale 1-10 Last Admin: 08/15/24 02:58 Dose: 650 mg Al Hydroxide/Mg Hydroxide (Magnesium Hydrox/Alum Hydrox 30 Ml Oral.Susp) 30 ml PO Q6H PRN PRN Reason: Heartburn/Nausea Amoxicillin/Clavulanate Potassium (Amoxicillin/Potassium Clav 875 Mg Tablet) 875 mg PO BID@0630,1900 COUNT INCLUDES THE [facility] Last Admin: 08/21/24 06:49 Dose: 875 mg Calcium Carbonate (Calcium Oyster Shell Elemental 500 Mg Tablet) 500 mg PO Q4H PRN PRN Reason: Heartburn Capsaicin (Capsaicin 0.025% Cream 60 Gm Tube) 1 appl TOPICAL QID PRN; Protocol PRN Reason: ankle/hip pain Last Admin: 08/17/24 11:02 Dose: 1 appl Docusate Sodium (Docusate Sodium 100 Mg Capsule) 100 mg PO BID PRN PRN Reason: Constipation Gabapentin (Gabapentin 400 Mg Capsule) 400 mg PO TID@0630,1300,1900 [facility]CLUD[facility] Last Admin: 08/21/24 06:49 Dose: 400 mg Guaifenesin (Guaifenesin La 600 Mg Tab.Er.12h) 1,200 mg PO BID PRN PRN Reason: Cough Haloperidol (Haloperidol 5 Mg Tablet) 5 mg PO TID PRN PRN Reason: AH/anxiety Last Admin: 08/20/24 13:23 Dose: 5 mg Loperamide HCl (Loperamide Hcl 2 Mg Capsule) 2 mg PO Q4H PRN PRN Reason: Diarrhea Lorazepam (Lorazepam 1 Mg Tablet) 1 mg PO Q2H PRN PRN Reason: CIWA 8-11 Last Admin: 08/20/24 12:51 Dose: 1 mg Lorazepam (Lorazepam 1 Mg Tablet) 2 mg PO Q2H PRN PRN Reason: CIWA 12-15 Lorazepam (Lorazepam 1 Mg Tablet) 3 mg PO Q2H PRN PRN Reason: CIWA > 15, and call MD Magnesium Hydroxide (Milk Of Magnesia 30 Ml Oral.Susp) 30 ml PO DAILY PRN PRN Reason: Constipation Melatonin (Melatonin 3 Mg Tablet) 3 mg PO BEDTIME PRN PRN Reason: insomnia Last Admin: 08/17/24 02:20 Dose: 3 mg Methadone HCl (Methadone Hcl 20 Mg/2 Ml Oral.Conc) 45 mg PO DAILY@0800 COUNT INCLUDES THE [facility] Last Admin: 08/21/24 08:01 Dose: 45 mg Nicotine (Nicotine 21 Mg Patch.Td24) 21 mg TRANSDERMA DAILY PRN PRN Reason: Smoking Cessation Last Admin: 08/15/24 11:35 Dose: 21 mg Nicotine Polacrilex (Nicotine Polacrilex 2 Mg Gum) 4 mg BUCCAL Q2H PRN PRN Reason: Nicotine Cravings Omeprazole (Omeprazole 40 Mg Capsule.Dr) 40 mg PO DAILY@0630 COUNT INCLUDES THE [facility] Last Admin: 08/21/24 06:49 Dose: 40 mg Ondansetron HCl (Ondansetron Odt 4 Mg Tab.Rapdis) 4 mg TRANSLINGU Q6H PRN PRN Reason: Nausea And Vomiting Last Admin: 08/20/24 14:13 Dose: 4 mg Prazosin HCl (Prazosin Hcl 1 Mg Capsule) 3 mg PO BEDTIME@1900 COUNT INCLUDES [facility]; Protocol Last Admin: 08/20/24 19:26 Dose: 3 mg Quetiapine Fumarate (Quetiapine Fumarate 400 Mg Tablet) 400 mg PO BEDTIME@1900 COUNT [facility]CLUDES THE [facility] Last Admin: 08/20/24 19:26 Dose: 400 mg Senna (Sennosides 8.6 Mg Tablet) 17.2 mg PO DAILY PRN PRN Reason: Constipation Allergies Allergies Allergy/AdvReac Type Severity Reaction Status Date / Time Unable to Assess Allergy Verified 08/09/24 16:03 Assessment & Plan Assessment & Plan (1) Opioid use disorder: Status: Inactive Code(s): F11.90 - Opioid use, unspecified, uncomplicated (2) Aspiration pneumonia: Status: Resolved Code(s): J69.0 - Pneumonitis due to inhalation of food and vomit (3) Cocaine use disorder: Status: Acute Code(s): F14.10 - Cocaine abuse, uncomplicated (4) Mood disorder: Status: Inactive Code(s): F39 - Unspecified mood [affective] disorder Plan 08/14: increase HS prazosin to 2 mg for insomnia/nightmares. increase HS remeron to 30 for insomnia. decrease seroquel BID to 100 mg each, add perphenazine 4 mg BID. complete cross-taper tomorrow. due to sedation, weight. continue methadone 45 mg daily for now. pt asking for more sedating medications but can barely remain awake. 08/15: sedation alternating with agitation. increase HS prazosin to 3 mg. DC remeron as likely not needed. DC perphenazine per pt request, reinstate seroquel BID at 100 mg, leave HS dose at 400 mg. continue methadone at 45. continue klonopin 0.75 TID, decrease to 0.5 TID as of tomorrow. 08/16: sedation alternating with agitation. decrease klonopin to 0.5 TID. decrease gabapentin to 600 TID. decrease seroquel during the day to 50 mg each dose, TID PRN. otherwise continue prior mgmt. 08/17: sedation alternating with agitation. decrease klonopin to 0.25 TID tomorrow. decrease gabapentin to 400 TID. DC seroquel during the day, retain 400 at HS. haldol 5 mg TID PRN AH. otherwise continue prior mgmt. if pt is not presenting differently tomorrow, will decrease methadone by 5 mg daily. 3-day notice withdrawn. 08/18: sedation alternating with agitation, but seemingly more calm today than prior. c/o depression, not anxiety today. decreased klonopin to 0.25 TID. DC entirely on tuesday. continue gabapentin 400 TID. DCed seroquel during the day, retained 400 at HS. haldol 5 mg TID PRN AH. otherwise continue prior mgmt. if pt is not less sedated tomorrow, will decrease methadone by 5 mg daily. 08/19: sedation alternating with agitation, but seemingly more calm today than prior, and more awake and alert. c/o depression, not anxiety today. decreased klonopin to 0.25 TID. DC entirely on tuesday. continue gabapentin 400 TID. DCed seroquel during the day, retained 400 at HS. haldol 5 mg TID PRN AH. otherwise continue prior mgmt. 08/20: sedation alternating with general calm but antagonistic behavior, and more awake and alert. DCed klonopin entirely 08/20. c/o sweating, malaise, nausea. CIWA with ativan per protocol as a precaution to benzo withdrawal. continue gabapentin 400 TID. DCed seroquel during the day, retained 400 at HS. haldol 5 mg TID PRN AH. otherwise continue prior mgmt. 08/21: Laying in bed. Patient reports feeling anxious and depressed; pt stated, I'm laying down because I'm anxious and have a headache . mumbled speech; difficult to understand at times. She reports auditory hallucinations telling her to self harm. difficult to engage. pt pulled bed covers over head mid- conversation and stopped conversation. continue tx plan. Patient educated on: medication risk/benefits Reason for continued inpatient stay Substantial Risk for: med/psych decompensation Time Spent With Patient Time: Total time managing care of this patient today _10___ minutes.
[2024-08-21] MEDS: Acetaminophen 325 MG TABLET 650 MG PO (13:26)
[2024-08-21 18:33] VITALS: BP 121/75; PULSE 83
[2024-08-21] MEDS: Prazosin HCL 1 MG CAPSULE 3 MG PO (18:35)
[2024-08-21] MEDS: QUEtiapine Fumarate 400 MG TABLET PO (18:35)
[2024-08-21 20:00] VITALS: RESP 16
[2024-08-22] MEDS: Gabapentin 400 MG CAPSULE PO ×3 (06:18→18:47)
[2024-08-22] MEDS: Omeprazole 40 MG CAPSULE.DR PO (06:18)
[2024-08-22] MEDS: Amoxicillin/Potassium Clav 875 MG TABLET PO ×2 (06:18→18:46)
[2024-08-22] MEDS: methADONE HCl 20 MG/2 ML ORAL.CONC 45 MG PO (07:53)
[2024-08-22 08:33] VITALS: BP 127/74; PULSE 105; RESP 16; TEMP 36.6; O2SAT 98
[2024-08-22] MEDS: HaloperidoL 5 MG TABLET PO ×2 (12:51→20:29)
[2024-08-22 18:45] VITALS: BP 145/85; PULSE 101
[2024-08-22] MEDS: Prazosin HCL 1 MG CAPSULE 3 MG PO (18:46)
[2024-08-22] MEDS: QUEtiapine Fumarate 400 MG TABLET PO (18:46)
[2024-08-22 19:35] VITALS: BP 120/86; PULSE 115; RESP 16; TEMP 36.7; O2SAT 96
--- NOTE | 2024-08-22 19:40 | P.PNPSI_ITS ---
Subjective Subjective Date of Service: 08/22/24 Reason For Visit: Overdose Interim History: sleepy, roused from her bed to conversational voice. nodding off during interview. negativistic, helpless stance. did seem receptive to the idea of section 35. was saying otherwise as soon as she left she would use bcse i am not giving her the medications she needs. per staff, CIWA 0, 2, 0. withdrawn, guardded. isolative. not attending groups. lots of sleeping. tylenol for ALEXIS. observed sleeping in her lunch yesterday. Mental Status Exam Mental Status Exam Narrative: disheveled, own clothes. cooperative. no PMA/PMR. speech generally incr rate, incr amount, decr loudness, decr latency. thoughts re depression, med reductions, substance use. affect constricted, variably intense, irritable. mood depressed. no HI/AVH expressed. endorsing SI with plan to overdose after discharge. Diagnostics Vital Signs (24Hr): Vital Signs - 24 hr 08/21/24 20:00 08/22/24 08:33 08/22/24 18:45 Temperature 98 F Pulse Rate 105 H 101 H Respiratory Rate 16 16 Blood Pressure 127/74 145/85 H Pulse Oximetry 98 Oxygen Delivery Method Room Air BMI result Body Mass Index 26.0 Labs 08/13/24 16:08 Medications Medications Current Medications Acetaminophen (Acetaminophen 325 Mg Tablet) 650 mg PO Q6H PRN PRN Reason: Headache/Pain, Scale 1-10 Last Admin: 08/21/24 13:26 Dose: 650 mg Al Hydroxide/Mg Hydroxide (Magnesium Hydrox/Alum Hydrox 30 Ml Oral.Susp) 30 ml PO Q6H PRN PRN Reason: Heartburn/Nausea Amoxicillin/Clavulanate Potassium (Amoxicillin/Potassium Clav 875 Mg Tablet) 875 mg PO BID@0630,1900 [facility] Last Admin: 08/22/24 18:46 Dose: 875 mg Calcium Carbonate (Calcium Oyster Shell Elemental 500 Mg Tablet) 500 mg PO Q4H PRN PRN Reason: Heartburn Capsaicin (Capsaicin 0.025% Cream 60 Gm Tube) 1 appl TOPICAL QID PRN; Protocol PRN Reason: ankle/hip pain Last Admin: 08/17/24 11:02 Dose: 1 appl Gabapentin (Gabapentin 400 Mg Capsule) 400 mg PO TID@0630,1300,1900 [facility] Last Admin: 08/22/24 18:47 Dose: 400 mg Guaifenesin (Guaifenesin La 600 Mg Tab.Er.12h) 1,200 mg PO BID PRN PRN Reason: Cough Haloperidol (Haloperidol 5 Mg Tablet) 5 mg PO TID PRN PRN Reason: AH/anxiety Last Admin: 08/22/24 12:51 Dose: 5 mg Loperamide HCl (Loperamide Hcl 2 Mg Capsule) 2 mg PO Q4H PRN PRN Reason: Diarrhea Lorazepam (Lorazepam 1 Mg Tablet) 1 mg PO Q2H PRN PRN Reason: CIWA 8-11 Last Admin: 08/20/24 12:51 Dose: 1 mg Lorazepam (Lorazepam 1 Mg Tablet) 2 mg PO Q2H PRN PRN Reason: CIWA 12-15 Lorazepam (Lorazepam 1 Mg Tablet) 3 mg PO Q2H PRN PRN Reason: CIWA > 15, and call MD Melatonin (Melatonin 3 Mg Tablet) 3 mg PO BEDTIME PRN PRN Reason: insomnia Last Admin: 08/17/24 02:20 Dose: 3 mg Methadone HCl (Methadone Hcl 20 Mg/2 Ml Oral.Conc) 40 mg PO DAILY@0800 [facility] Nicotine (Nicotine 21 Mg Patch.Td24) 21 mg TRANSDERMA DAILY PRN PRN Reason: Smoking Cessation Last Admin: 08/15/24 11:35 Dose: 21 mg Nicotine Polacrilex (Nicotine Polacrilex 2 Mg Gum) 4 mg BUCCAL Q2H PRN PRN Reason: Nicotine Cravings Omeprazole (Omeprazole 40 Mg Capsule.Dr) 40 mg PO DAILY@0630 [facility] Last Admin: 08/22/24 06:18 Dose: 40 mg Ondansetron HCl (Ondansetron Odt 4 Mg Tab.Rapdis) 4 mg TRANSLINGU Q6H PRN PRN Reason: Nausea And Vomiting Last Admin: 08/20/24 14:13 Dose: 4 mg Prazosin HCl (Prazosin Hcl 1 Mg Capsule) 3 mg PO BEDTIME@1900 [facility]; Protocol Last Admin: 08/22/24 18:46 Dose: 3 mg Quetiapine Fumarate (Quetiapine Fumarate 400 Mg Tablet) 400 mg PO BEDTIME@1900 [facility] Last Admin: 08/22/24 18:46 Dose: 400 mg Senna (Sennosides 8.6 Mg Tablet) 17.2 mg PO DAILY PRN PRN Reason: Constipation Allergies Allergies Allergy/AdvReac Type Severity Reaction Status Date / Time Unable to Assess Allergy Verified 08/09/24 16:03 Assessment & Plan Assessment & Plan (1) Opioid use disorder: Status: Inactive Code(s): F11.90 - Opioid use, unspecified, uncomplicated (2) Aspiration pneumonia: Status: Resolved Code(s): J69.0 - Pneumonitis due to inhalation of food and vomit (3) Cocaine use disorder: Status: Acute Code(s): F14.10 - Cocaine abuse, uncomplicated (4) Mood disorder: Status: Inactive Code(s): F39 - Unspecified mood [affective] disorder Plan 08/14: increase HS prazosin to 2 mg for insomnia/nightmares. increase HS remeron to 30 for insomnia. decrease seroquel BID to 100 mg each, add perphenazine 4 mg BID. complete cross-taper tomorrow. due to sedation, weight. continue methadone 45 mg daily for now. pt asking for more sedating medications but can barely remain awake. 08/15: sedation alternating with agitation. increase HS prazosin to 3 mg. DC remeron as likely not needed. DC perphenazine per pt request, reinstate seroquel BID at 100 mg, leave HS dose at 400 mg. continue methadone at 45. continue klonopin 0.75 TID, decrease to 0.5 TID as of tomorrow. 08/16: sedation alternating with agitation. decrease klonopin to 0.5 TID. decrease gabapentin to 600 TID. decrease seroquel during the day to 50 mg each dose, TID PRN. otherwise continue prior mgmt. 08/17: sedation alternating with agitation. decrease klonopin to 0.25 TID tomorrow. decrease gabapentin to 400 TID. DC seroquel during the day, retain 400 at HS. haldol 5 mg TID PRN AH. otherwise continue prior mgmt. if pt is not presenting differently tomorrow, will decrease methadone by 5 mg daily. 3-day notice withdrawn. 08/18: sedation alternating with agitation, but seemingly more calm today than prior. c/o depression, not anxiety today. decreased klonopin to 0.25 TID. DC entirely on tuesday. continue gabapentin 400 TID. DCed seroquel during the day, retained 400 at HS. haldol 5 mg TID PRN AH. otherwise continue prior mgmt. if pt is not less sedated tomorrow, will decrease methadone by 5 mg daily. 08/19: sedation alternating with agitation, but seemingly more calm today than prior, and more awake and alert. c/o depression, not anxiety today. decreased klonopin to 0.25 TID. DC entirely on tuesday. continue gabapentin 400 TID. DCed seroquel during the day, retained 400 at HS. haldol 5 mg TID PRN AH. otherwise continue prior mgmt. 08/20: sedation alternating with general calm but antagonistic behavior, and more awake and alert. DCed klonopin entirely 08/20. c/o sweating, malaise, nausea. CIWA with ativan per protocol as a precaution to benzo withdrawal. continue gabapentin 400 TID. DCed seroquel during the day, retained 400 at HS. haldol 5 mg TID PRN AH. otherwise continue prior mgmt. 08/21: Laying in bed. Patient reports feeling anxious and depressed; pt stated, I'm laying down because I'm anxious and have a headache . mumbled speech; difficult to understand at times. She reports auditory hallucinations telling her to self harm. difficult to engage. pt pulled bed covers over head mid- conversation and stopped conversation. continue tx plan. 08/22: sedation alternating with general calm but antagonistic behavior, and more awake and alert on average. DCed klonopin entirely 08/20. c/o sweating, malaise, nausea. CIWA with ativan per protocol as a precaution to benzo withdrawal. scoring low on CIWA through 08/22. continue gabapentin 400 TID. DCed seroquel during the day, retained 400 at HS. haldol 5 mg TID PRN AH. decrease methadone to 40 mg daily as of 08/23 to decrease daytime sedation. otherwise continue prior mgmt. Reason for continued inpatient stay Substantial Risk for: harm to self, inability to function and rapid decompensation Time Spent With Patient Time: Total time managing care of this patient today __25__ minutes.
[2024-08-22] MEDS: Sennosides 8.6 MG TABLET 17.2 MG PO (20:28)
[2024-08-22] MEDS: Melatonin 3 MG TABLET PO (20:28)
[2024-08-23] MEDS: Omeprazole 40 MG CAPSULE.DR PO (06:56)
[2024-08-23] MEDS: Gabapentin 400 MG CAPSULE PO ×3 (06:56→20:06)
[2024-08-23] MEDS: Amoxicillin/Potassium Clav 875 MG TABLET PO ×2 (06:59→20:06)
[2024-08-23 07:00] VITALS: BMI 24.5
[2024-08-23] MEDS: methADONE HCl 20 MG/2 ML ORAL.CONC 40 MG PO (07:57)
[2024-08-23 08:00] VITALS: RESP 18
[2024-08-23] MEDS: HaloperidoL 5 MG TABLET PO ×2 (09:24→20:06)
--- NOTE | 2024-08-23 15:34 | P.PNPSI_ITS ---
Subjective Subjective Date of Service: 08/23/24 Reason For Visit: Overdose Interim History: more calm and awake today. mood OK. c/o losing train of thought mid- sentence. informed not scoring on CIWA and so CIWA will be DCed. amenable to MoCA. per staff, CIWA 0, 2, asleep. dep 9. PRN haldol. napping on and off. Mental Status Exam Mental Status Exam Narrative: disheveled, own clothes. cooperative. no PMA/PMR. speech generally nml rate, amount, loudness, latency. thoughts re perceived cognitive deficits. affect constricted, hypo intense, non-labile. mood OK. no SI/HI/AVH expressed. Diagnostics Vital Signs (24Hr): Vital Signs - 24 hr 08/22/24 18:45 08/22/24 19:35 08/23/24 08:00 Temperature 98.0 F Pulse Rate 101 H 115 H Respiratory Rate 16 18 Blood Pressure 145/85 H 120/86 Pulse Oximetry 96 Oxygen Delivery Method Room Air BMI result Body Mass Index 24.5 Labs 08/13/24 16:08 Medications Medications Current Medications Acetaminophen (Acetaminophen 325 Mg Tablet) 650 mg PO Q6H PRN PRN Reason: Headache/Pain, Scale 1-10 Last Admin: 08/21/24 13:26 Dose: 650 mg Al Hydroxide/Mg Hydroxide (Magnesium Hydrox/Alum Hydrox 30 Ml Oral.Susp) 30 ml PO Q6H PRN PRN Reason: Heartburn/Nausea Amoxicillin/Clavulanate Potassium (Amoxicillin/Potassium Clav 875 Mg Tablet) 875 mg PO BID@0630,1900 [facility] Last Admin: 08/23/24 06:59 Dose: 875 mg Calcium Carbonate (Calcium Oyster Shell Elemental 500 Mg Tablet) 500 mg PO Q4H PRN PRN Reason: Heartburn Capsaicin (Capsaicin 0.025% Cream 60 Gm Tube) 1 appl TOPICAL QID PRN; Protocol PRN Reason: ankle/hip pain Last Admin: 08/17/24 11:02 Dose: 1 appl Gabapentin (Gabapentin 400 Mg Capsule) 400 mg PO TID@0630,1300,1900 [facility] Last Admin: 08/23/24 12:16 Dose: 400 mg Guaifenesin (Guaifenesin La 600 Mg Tab.Er.12h) 1,200 mg PO BID PRN PRN Reason: Cough Haloperidol (Haloperidol 5 Mg Tablet) 5 mg PO TID PRN PRN Reason: AH/anxiety Last Admin: 08/23/24 09:24 Dose: 5 mg Loperamide HCl (Loperamide Hcl 2 Mg Capsule) 2 mg PO Q4H PRN PRN Reason: Diarrhea Lorazepam (Lorazepam 1 Mg Tablet) 1 mg PO Q2H PRN PRN Reason: CIWA 8-11 Last Admin: 08/20/24 12:51 Dose: 1 mg Lorazepam (Lorazepam 1 Mg Tablet) 2 mg PO Q2H PRN PRN Reason: CIWA 12-15 Lorazepam (Lorazepam 1 Mg Tablet) 3 mg PO Q2H PRN PRN Reason: CIWA > 15, and call MD Melatonin (Melatonin 3 Mg Tablet) 3 mg PO BEDTIME PRN PRN Reason: insomnia Last Admin: 08/22/24 20:28 Dose: 3 mg Methadone HCl (Methadone Hcl 20 Mg/2 Ml Oral.Conc) 40 mg PO DAILY@0800 [facility] Last Admin: 08/23/24 07:57 Dose: 40 mg Nicotine (Nicotine 21 Mg Patch.Td24) 21 mg TRANSDERMA DAILY PRN PRN Reason: Smoking Cessation Last Admin: 08/15/24 11:35 Dose: 21 mg Nicotine Polacrilex (Nicotine Polacrilex 2 Mg Gum) 4 mg BUCCAL Q2H PRN PRN Reason: Nicotine Cravings Omeprazole (Omeprazole 40 Mg Capsule.Dr) 40 mg PO DAILY@0630 [facility] Last Admin: 08/23/24 06:56 Dose: 40 mg Ondansetron HCl (Ondansetron Odt 4 Mg Tab.Rapdis) 4 mg TRANSLINGU Q6H PRN PRN Reason: Nausea And Vomiting Last Admin: 08/20/24 14:13 Dose: 4 mg Prazosin HCl (Prazosin Hcl 1 Mg Capsule) 3 mg PO BEDTIME@1900 [facility]; Protocol Last Admin: 08/22/24 18:46 Dose: 3 mg Quetiapine Fumarate (Quetiapine Fumarate 400 Mg Tablet) 400 mg PO BEDTIME@1900 [facility] Last Admin: 08/22/24 18:46 Dose: 400 mg Senna (Sennosides 8.6 Mg Tablet) 17.2 mg PO DAILY PRN PRN Reason: Constipation Last Admin: 08/22/24 20:28 Dose: 17.2 mg Allergies Allergies Allergy/AdvReac Type Severity Reaction Status Date / Time Unable to Assess Allergy Verified 08/09/24 16:03 Assessment & Plan Assessment & Plan (1) Opioid use disorder: Status: Inactive Code(s): F11.90 - Opioid use, unspecified, uncomplicated (2) Aspiration pneumonia: Status: Resolved Code(s): J69.0 - Pneumonitis due to inhalation of food and vomit (3) Cocaine use disorder: Status: Acute Code(s): F14.10 - Cocaine abuse, uncomplicated (4) Mood disorder: Status: Inactive Code(s): F39 - Unspecified mood [affective] disorder Plan 08/14: increase HS prazosin to 2 mg for insomnia/nightmares. increase HS remeron to 30 for insomnia. decrease seroquel BID to 100 mg each, add perphenazine 4 mg BID. complete cross-taper tomorrow. due to sedation, weight. continue methadone 45 mg daily for now. pt asking for more sedating medications but can barely remain awake. 08/15: sedation alternating with agitation. increase HS prazosin to 3 mg. DC remeron as likely not needed. DC perphenazine per pt request, reinstate seroquel BID at 100 mg, leave HS dose at 400 mg. continue methadone at 45. continue klonopin 0.75 TID, decrease to 0.5 TID as of tomorrow. 08/16: sedation alternating with agitation. decrease klonopin to 0.5 TID. decrease gabapentin to 600 TID. decrease seroquel during the day to 50 mg each dose, TID PRN. otherwise continue prior mgmt. 08/17: sedation alternating with agitation. decrease klonopin to 0.25 TID tomorrow. decrease gabapentin to 400 TID. DC seroquel during the day, retain 400 at HS. haldol 5 mg TID PRN AH. otherwise continue prior mgmt. if pt is not presenting differently tomorrow, will decrease methadone by 5 mg daily. 3-day notice withdrawn. 08/18: sedation alternating with agitation, but seemingly more calm today than prior. c/o depression, not anxiety today. decreased klonopin to 0.25 TID. DC entirely on tuesday. continue gabapentin 400 TID. DCed seroquel during the day, retained 400 at HS. haldol 5 mg TID PRN AH. otherwise continue prior mgmt. if pt is not less sedated tomorrow, will decrease methadone by 5 mg daily. 08/19: sedation alternating with agitation, but seemingly more calm today than prior, and more awake and alert. c/o depression, not anxiety today. decreased klonopin to 0.25 TID. DC entirely on tuesday. continue gabapentin 400 TID. DCed seroquel during the day, retained 400 at HS. haldol 5 mg TID PRN AH. otherwise continue prior mgmt. 08/20: sedation alternating with general calm but antagonistic behavior, and more awake and alert. DCed klonopin entirely 08/20. c/o sweating, malaise, nausea. CIWA with ativan per protocol as a precaution to benzo withdrawal. continue gabapentin 400 TID. DCed seroquel during the day, retained 400 at HS. haldol 5 mg TID PRN AH. otherwise continue prior mgmt. 08/21: Laying in bed. Patient reports feeling anxious and depressed; pt stated, I'm laying down because I'm anxious and have a headache . mumbled speech; difficult to understand at times. She reports auditory hallucinations telling her to self harm. difficult to engage. pt pulled bed covers over head mid- conversation and stopped conversation. continue tx plan. 08/22: sedation alternating with general calm but antagonistic behavior, and more awake and alert on average. DCed klonopin entirely 08/20. c/o sweating, malaise, nausea. CIWA with ativan per protocol as a precaution to benzo withdrawal. scoring low on CIWA through 08/22. continue gabapentin 400 TID. DCed seroquel during the day, retained 400 at HS. haldol 5 mg TID PRN AH. decrease methadone to 40 mg daily as of 08/23 to decrease daytime sedation. otherwise continue prior mgmt. 08/23: sedation trending toward alertness 08/23. DCed klonopin entirely 08/20. c/o sweating, malaise, nausea. CIWA with ativan per protocol as a precaution to benzo withdrawal. scoring low on CIWA through 08/22, 08/23. DC CIwa 08/23 as not indicated. continue gabapentin 400 TID. DCed seroquel during the day, retained 400 at HS. haldol 5 mg TID PRN AH. decreased methadone to 40 mg daily as of 08/23 to decrease daytime sedation. otherwise continue prior mgmt. Reason for continued inpatient stay Substantial Risk for: inability to function and rapid decompensation Time Spent With Patient Time: Total time managing care of this patient today __25__ minutes.
[2024-08-23 19:35] VITALS: BP 129/75; PULSE 96; RESP 16; TEMP 36.4; O2SAT 100
[2024-08-23] MEDS: QUEtiapine Fumarate 400 MG TABLET PO (19:42)
[2024-08-23] MEDS: Prazosin HCL 1 MG CAPSULE 3 MG PO (19:42)
[2024-08-23] MEDS: Melatonin 3 MG TABLET PO (20:07)
[2024-08-23] MEDS: Sennosides 8.6 MG TABLET 17.2 MG PO (20:15)
[2024-08-24] MEDS: Omeprazole 40 MG CAPSULE.DR PO (06:50)
[2024-08-24] MEDS: Gabapentin 400 MG CAPSULE PO ×3 (06:50→18:06)
[2024-08-24] MEDS: Amoxicillin/Potassium Clav 875 MG TABLET PO ×2 (06:50→18:06)
[2024-08-24 08:00] VITALS: RESP 18
[2024-08-24] MEDS: methADONE HCl 20 MG/2 ML ORAL.CONC 40 MG PO (08:31)
--- NOTE | 2024-08-24 14:38 | PC.NURSE ---
Pt completed a MOCA assessment scoring 15 out of 30 indicated a moderate cognitive impairment.
--- NOTE | 2024-08-24 15:09 | P.PNPSI_ITS ---
Subjective Subjective Date of Service: 08/24/24 Reason For Visit: Overdose Interim History: calm, cooperative. non-labile. inert. taking haldol 5 PRN twice daily, some help with AH per pt. mood so-so, no SI. per staff, depressed and anxious. CIWA 1. +AH. Mental Status Exam Mental Status Exam Narrative: disheveled, own clothes. cooperative. no PMA/PMR. speech generally nml rate, amount, loudness, latency. thoughts sparse. affect constricted, hypo intense, non-labile. mood so-so. no SI. +AH. no HI/VH expressed. Diagnostics Vital Signs (24Hr): Vital Signs - 24 hr 08/23/24 19:35 08/24/24 08:00 Temperature 97.6 F Pulse Rate 96 Respiratory Rate 16 18 Blood Pressure 129/75 Pulse Oximetry 100 Oxygen Delivery Method Room Air BMI result Body Mass Index 24.5 Labs 08/13/24 16:08 Medications Medications Current Medications Acetaminophen (Acetaminophen 325 Mg Tablet) 650 mg PO Q6H PRN PRN Reason: Headache/Pain, Scale 1-10 Last Admin: 08/21/24 13:26 Dose: 650 mg Al Hydroxide/Mg Hydroxide (Magnesium Hydrox/Alum Hydrox 30 Ml Oral.Susp) 30 ml PO Q6H PRN PRN Reason: Heartburn/Nausea Amoxicillin/Clavulanate Potassium (Amoxicillin/Potassium Clav 875 Mg Tablet) 875 mg PO BID@0630,1900 [facility] Last Admin: 08/24/24 06:50 Dose: 875 mg Calcium Carbonate (Calcium Oyster Shell Elemental 500 Mg Tablet) 500 mg PO Q4H PRN PRN Reason: Heartburn Capsaicin (Capsaicin 0.025% Cream 60 Gm Tube) 1 appl TOPICAL QID PRN; Protocol PRN Reason: ankle/hip pain Last Admin: 08/17/24 11:02 Dose: 1 appl Gabapentin (Gabapentin 400 Mg Capsule) 400 mg PO TID@0630,1300,1900 [facility] Last Admin: 08/24/24 13:53 Dose: 400 mg Guaifenesin (Guaifenesin La 600 Mg Tab.Er.12h) 1,200 mg PO BID PRN PRN Reason: Cough Haloperidol (Haloperidol 5 Mg Tablet) 5 mg PO TID PRN PRN Reason: AH/anxiety Last Admin: 08/23/24 20:06 Dose: 5 mg Loperamide HCl (Loperamide Hcl 2 Mg Capsule) 2 mg PO Q4H PRN PRN Reason: Diarrhea Melatonin (Melatonin 3 Mg Tablet) 3 mg PO BEDTIME PRN PRN Reason: insomnia Last Admin: 08/23/24 20:07 Dose: 3 mg Methadone HCl (Methadone Hcl 20 Mg/2 Ml Oral.Conc) 40 mg PO DAILY@0800 [facility] Last Admin: 08/24/24 08:31 Dose: 40 mg Nicotine (Nicotine 21 Mg Patch.Td24) 21 mg TRANSDERMA DAILY PRN PRN Reason: Smoking Cessation Last Admin: 08/15/24 11:35 Dose: 21 mg Nicotine Polacrilex (Nicotine Polacrilex 2 Mg Gum) 4 mg BUCCAL Q2H PRN PRN Reason: Nicotine Cravings Omeprazole (Omeprazole 40 Mg Capsule.Dr) 40 mg PO DAILY@0630 [facility] Last Admin: 08/24/24 06:50 Dose: 40 mg Ondansetron HCl (Ondansetron Odt 4 Mg Tab.Rapdis) 4 mg TRANSLINGU Q6H PRN PRN Reason: Nausea And Vomiting Last Admin: 08/20/24 14:13 Dose: 4 mg Prazosin HCl (Prazosin Hcl 1 Mg Capsule) 3 mg PO BEDTIME@1900 [facility]; Protocol Last Admin: 08/23/24 19:42 Dose: 3 mg Quetiapine Fumarate (Quetiapine Fumarate 400 Mg Tablet) 400 mg PO BEDTIME@1900 [facility] Last Admin: 08/23/24 19:42 Dose: 400 mg Senna (Sennosides 8.6 Mg Tablet) 17.2 mg PO DAILY PRN PRN Reason: Constipation Last Admin: 08/23/24 20:15 Dose: 17.2 mg Allergies Allergies Allergy/AdvReac Type Severity Reaction Status Date / Time Unable to Assess Allergy Verified 08/09/24 16:03 Assessment & Plan Assessment & Plan (1) Opioid use disorder: Status: Inactive Code(s): F11.90 - Opioid use, unspecified, uncomplicated (2) Aspiration pneumonia: Status: Resolved Code(s): J69.0 - Pneumonitis due to inhalation of food and vomit (3) Cocaine use disorder: Status: Acute Code(s): F14.10 - Cocaine abuse, uncomplicated (4) Mood disorder: Status: Inactive Code(s): F39 - Unspecified mood [affective] disorder Plan 08/14: increase HS prazosin to 2 mg for insomnia/nightmares. increase HS remeron to 30 for insomnia. decrease seroquel BID to 100 mg each, add perphenazine 4 mg BID. complete cross-taper tomorrow. due to sedation, weight. continue methadone 45 mg daily for now. pt asking for more sedating medications but can barely remain awake. 08/15: sedation alternating with agitation. increase HS prazosin to 3 mg. DC remeron as likely not needed. DC perphenazine per pt request, reinstate seroquel BID at 100 mg, leave HS dose at 400 mg. continue methadone at 45. continue klonopin 0.75 TID, decrease to 0.5 TID as of tomorrow. 08/16: sedation alternating with agitation. decrease klonopin to 0.5 TID. decrease gabapentin to 600 TID. decrease seroquel during the day to 50 mg each dose, TID PRN. otherwise continue prior mgmt. 08/17: sedation alternating with agitation. decrease klonopin to 0.25 TID tomorrow. decrease gabapentin to 400 TID. DC seroquel during the day, retain 400 at HS. haldol 5 mg TID PRN AH. otherwise continue prior mgmt. if pt is not presenting differently tomorrow, will decrease methadone by 5 mg daily. 3-day notice withdrawn. 08/18: sedation alternating with agitation, but seemingly more calm today than prior. c/o depression, not anxiety today. decreased klonopin to 0.25 TID. DC entirely on tuesday. continue gabapentin 400 TID. DCed seroquel during the day, retained 400 at HS. haldol 5 mg TID PRN AH. otherwise continue prior mgmt. if pt is not less sedated tomorrow, will decrease methadone by 5 mg daily. 08/19: sedation alternating with agitation, but seemingly more calm today than prior, and more awake and alert. c/o depression, not anxiety today. decreased klonopin to 0.25 TID. DC entirely on tuesday. continue gabapentin 400 TID. DCed seroquel during the day, retained 400 at HS. haldol 5 mg TID PRN AH. otherwise continue prior mgmt. 08/20: sedation alternating with general calm but antagonistic behavior, and more awake and alert. DCed klonopin entirely 08/20. c/o sweating, malaise, nausea. CIWA with ativan per protocol as a precaution to benzo withdrawal. continue gabapentin 400 TID. DCed seroquel during the day, retained 400 at HS. haldol 5 mg TID PRN AH. otherwise continue prior mgmt. 08/21: Laying in bed. Patient reports feeling anxious and depressed; pt stated, I'm laying down because I'm anxious and have a headache . mumbled speech; difficult to understand at times. She reports auditory hallucinations telling her to self harm. difficult to engage. pt pulled bed covers over head mid- conversation and stopped conversation. continue tx plan. 08/22: sedation alternating with general calm but antagonistic behavior, and more awake and alert on average. DCed klonopin entirely 08/20. c/o sweating, malaise, nausea. CIWA with ativan per protocol as a precaution to benzo withdrawal. scoring low on CIWA through 08/22. continue gabapentin 400 TID. DCed seroquel during the day, retained 400 at HS. haldol 5 mg TID PRN AH. decrease methadone to 40 mg daily as of 08/23 to decrease daytime sedation. otherwise continue prior mgmt. 08/23: sedation trending toward alertness 08/23. DCed klonopin entirely 08/20. c/o sweating, malaise, nausea. CIWA with ativan per protocol as a precaution to benzo withdrawal. scoring low on CIWA through 08/22, 08/23. DC CIwa 08/23 as not indicated. continue gabapentin 400 TID. DCed seroquel during the day, retained 400 at HS. haldol 5 mg TID PRN AH. decreased methadone to 40 mg daily as of 08/23 to decrease daytime sedation. otherwise continue prior mgmt. 08/24: sedation trending toward alertness from early august. DCed klonopin entirely 08/20. c/o sweating, malaise, nausea. CIWA with ativan per protocol as a precaution to benzo withdrawal. scoring low on CIWA through 08/22, 08/23. DCed CIWA 08/24 as not indicated. continue gabapentin 400 TID. DCed seroquel during the day, retained 400 at HS. haldol 5 mg TID PRN AH. decreased methadone to 40 mg daily as of 08/23 to decrease daytime sedation. otherwise continue prior mgmt. dispo planning. has been referred to 4 rehabs. Reason for continued inpatient stay Substantial Risk for: inability to function and rapid decompensation Time Spent With Patient Time: Total time managing care of this patient today __25__ minutes.
[2024-08-24] MEDS: HaloperidoL 5 MG TABLET PO (17:41)
[2024-08-24 18:05] VITALS: BP 147/91
[2024-08-24] MEDS: Prazosin HCL 1 MG CAPSULE 3 MG PO (18:05)
[2024-08-24] MEDS: QUEtiapine Fumarate 400 MG TABLET PO (18:05)
[2024-08-24] MEDS: Nicotine Polacrilex 2 MG GUM 4 MG BUCCAL ×2 (18:48→20:44)
[2024-08-24 20:00] VITALS: BP 119/73; PULSE 96; RESP 16; TEMP 36.4; O2SAT 96
[2024-08-24] MEDS: Melatonin 3 MG TABLET PO (21:57)
[2024-08-25] MEDS: Gabapentin 400 MG CAPSULE PO ×3 (06:47→18:55)
[2024-08-25] MEDS: Omeprazole 40 MG CAPSULE.DR PO (06:47)
[2024-08-25 08:00] VITALS: BP 130/89; PULSE 89; RESP 14; TEMP 37.1; O2SAT 96
[2024-08-25] MEDS: methADONE HCl 20 MG/2 ML ORAL.CONC 40 MG PO (08:31)
[2024-08-25] MEDS: Nicotine Polacrilex 2 MG GUM 4 MG BUCCAL ×6 (08:48→19:47)
[2024-08-25] MEDS: HaloperidoL 5 MG TABLET PO (11:26)
[2024-08-25] MEDS: QUEtiapine Fumarate 50 MG TABLET PO (17:19)
[2024-08-25 18:09] VITALS: BP 122/82; PULSE 105; RESP 16; O2SAT 97
[2024-08-25] MEDS: Prazosin HCL 1 MG CAPSULE 3 MG PO (18:11)
[2024-08-25] MEDS: QUEtiapine Fumarate 400 MG TABLET PO (18:11)
[2024-08-25] MEDS: traZODone HCL 50 MG TABLET PO (18:56)
[2024-08-25] MEDS: Sennosides 8.6 MG TABLET 17.2 MG PO (19:52)
[2024-08-25 20:00] VITALS: BP 121/66; PULSE 109; RESP 16; TEMP 36.5; O2SAT 95
--- NOTE | 2024-08-25 23:28 | P.PNPSI_ITS ---
Subjective Subjective Date of Service: 08/25/24 Reason For Visit: Overdose Interim History: Met with patient; discussed with team; reviewed chart Patient reports that she is very scared about discharge next week since she is on such a low dose of methadone, saying she is normally at at least 70 mg. She reports that it was lowered from 50 mg down to 40 mg because she was sedated during the day. She acknowledges that she was sedated but says it was due to a combination of having not slept for many days while embroiled in substance abuse prior to this admission as well as being restarted on Seroquel. She says that she is no longer feeling sedated during the day and is asking for it to be increased. She also wanted to discuss her Seroquel. She reports history of bipolar type 2 with depressive episodes. She says she is normally on Seroquel 200 mg b.i.d. during the day and then 300 mg q.h.s. which has now been changed to Seroquel 400 mg q.h.s.. Patient agrees that Seroquel is helpful for mood stability and wants to keep the nighttime dose however she says she has auditory hallucinations during the day for which daytime Seroquel helps. She explains AH is been present since she was about 7 years old and is always the same voice saying negative things; she agrees it could be related to PTSD but is not sure but denies any other types of voices or AH. Knurling Machine Tender agreed to medication changes as long as she remains awake and alert during the day of which she is confident. Increase methadone to 45 mg daily; will consider further increase if patient tolerates; otherwise patient is very afraid of relapse Continue Seroquel 400 mg q.h.s. Add Seroquel 50 mg b.i.d. p.r.n. for AH; will titrate if needed Trazodone 50 mg p.r.n. q.h.s. for insomnia Mental Status Exam Mental Status Exam Narrative: Pt is alert and oriented; behavior is cooperative, in behavioral control; patient is not in distress; dressed in casual attire with unkempt hair; scared (about discharge) and affect anxious; eye contact appropriate; Speech is normal rate, volume and prosody and not pressured; no psychomotor agitation/retardation present; thought process is organized and goal directed; Thought content is on tx, sobriety; otherwise pertinent to relevant topics and without any delusional content, paranoid ideations or grandiosity; denies any SI/HI. Intermittent AH which is chronic and of the same voice. Patients insight and judgment fair. Diagnostics Vital Signs (24Hr): Vital Signs - 24 hr 08/25/24 08:00 08/25/24 18:09 08/25/24 20:00 Temperature 98.8 F 97.7 F Pulse Rate 89 105 H 109 H Respiratory Rate 14 16 16 Blood Pressure 130/89 122/82 121/66 Pulse Oximetry 96 97 95 Oxygen Delivery Method Room Air Room Air Room Air BMI result Body Mass Index 24.5 Labs 08/13/24 16:08 Medications Medications Current Medications Acetaminophen (Acetaminophen 325 Mg Tablet) 650 mg PO Q6H PRN PRN Reason: Headache/Pain, Scale 1-10 Last Admin: 08/21/24 13:26 Dose: 650 mg Al Hydroxide/Mg Hydroxide (Magnesium Hydrox/Alum Hydrox 30 Ml Oral.Susp) 30 ml PO Q6H PRN PRN Reason: Heartburn/Nausea Calcium Carbonate (Calcium Oyster Shell Elemental 500 Mg Tablet) 500 mg PO Q4H PRN PRN Reason: Heartburn Capsaicin (Capsaicin 0.025% Cream 60 Gm Tube) 1 appl TOPICAL QID PRN; Protocol PRN Reason: ankle/hip pain Last Admin: 08/17/24 11:02 Dose: 1 appl Gabapentin (Gabapentin 400 Mg Capsule) 400 mg PO TID@0630,1300,1900 [facility] Last Admin: 08/25/24 18:55 Dose: 400 mg Guaifenesin (Guaifenesin La 600 Mg Tab.Er.12h) 1,200 mg PO BID PRN PRN Reason: Cough Haloperidol (Haloperidol 5 Mg Tablet) 5 mg PO TID PRN PRN Reason: AH/anxiety Last Admin: 08/25/24 11:26 Dose: 5 mg Loperamide HCl (Loperamide Hcl 2 Mg Capsule) 2 mg PO Q4H PRN PRN Reason: Diarrhea Melatonin (Melatonin 3 Mg Tablet) 3 mg PO BEDTIME PRN PRN Reason: insomnia Last Admin: 08/24/24 21:57 Dose: 3 mg Methadone HCl (Methadone Hcl 20 Mg/2 Ml Oral.Conc) 45 mg PO DAILY@0800 [facility] Nicotine (Nicotine 21 Mg Patch.Td24) 21 mg TRANSDERMA DAILY PRN PRN Reason: Smoking Cessation Last Admin: 08/15/24 11:35 Dose: 21 mg Nicotine Polacrilex (Nicotine Polacrilex 2 Mg Gum) 4 mg BUCCAL Q2H PRN PRN Reason: Nicotine Cravings Last Admin: 08/25/24 19:47 Dose: 4 mg Omeprazole (Omeprazole 40 Mg Capsule.Dr) 40 mg PO DAILY@0630 [facility] Last Admin: 08/25/24 06:47 Dose: 40 mg Ondansetron HCl (Ondansetron Odt 4 Mg Tab.Rapdis) 4 mg TRANSLINGU Q6H PRN PRN Reason: Nausea And Vomiting Last Admin: 08/20/24 14:13 Dose: 4 mg Prazosin HCl (Prazosin Hcl 1 Mg Capsule) 3 mg PO BEDTIME@1900 [facility]; Protocol Last Admin: 08/25/24 18:11 Dose: 3 mg Quetiapine Fumarate (Quetiapine Fumarate 400 Mg Tablet) 400 mg PO BEDTIME@1900 [facility] Last Admin: 08/25/24 18:11 Dose: 400 mg Quetiapine Fumarate (Quetiapine Fumarate 50 Mg Tablet) 50 mg PO TID PRN PRN Reason: Auditory Hallucinations Last Admin: 08/25/24 17:19 Dose: 50 mg Senna (Sennosides 8.6 Mg Tablet) 17.2 mg PO DAILY PRN PRN Reason: Constipation Last Admin: 08/25/24 19:52 Dose: 17.2 mg Trazodone HCl (Trazodone Hcl 50 Mg Tablet) 50 mg PO BEDTIME MRX1 PRN PRN Reason: Insomnia and continued insomni Last Admin: 08/25/24 18:56 Dose: 50 mg Allergies Allergies Allergy/AdvReac Type Severity Reaction Status Date / Time Unable to Assess Allergy Verified 08/09/24 16:03 Assessment & Plan Assessment & Plan (1) Bipolar II disorder: Status: Acute Code(s): F31.81 - Bipolar II disorder (2) Opioid use disorder: Status: Inactive Code(s): F11.90 - Opioid use, unspecified, uncomplicated (3) Aspiration pneumonia: Status: Resolved Code(s): J69.0 - Pneumonitis due to inhalation of food and vomit (4) Cocaine use disorder: Status: Acute Code(s): F14.10 - Cocaine abuse, uncomplicated (5) Mood disorder: Status: Inactive Code(s): F39 - Unspecified mood [affective] disorder Plan 08/14: increase HS prazosin to 2 mg for insomnia/nightmares. increase HS remeron to 30 for insomnia. decrease seroquel BID to 100 mg each, add perphenazine 4 mg BID. complete cross-taper tomorrow. due to sedation, weight. continue methadone 45 mg daily for now. pt asking for more sedating medications but can barely remain awake. 08/15: sedation alternating with agitation. increase HS prazosin to 3 mg. DC remeron as likely not needed. DC perphenazine per pt request, reinstate seroquel BID at 100 mg, leave HS dose at 400 mg. continue methadone at 45. continue klonopin 0.75 TID, decrease to 0.5 TID as of tomorrow. 08/16: sedation alternating with agitation. decrease klonopin to 0.5 TID. decrease gabapentin to 600 TID. decrease seroquel during the day to 50 mg each dose, TID PRN. otherwise continue prior mgmt. 08/17: sedation alternating with agitation. decrease klonopin to 0.25 TID tomorrow. decrease gabapentin to 400 TID. DC seroquel during the day, retain 400 at HS. haldol 5 mg TID PRN AH. otherwise continue prior mgmt. if pt is not presenting differently tomorrow, will decrease methadone by 5 mg daily. 3-day notice withdrawn. 08/18: sedation alternating with agitation, but seemingly more calm today than prior. c/o depression, not anxiety today. decreased klonopin to 0.25 TID. DC entirely on tuesday. continue gabapentin 400 TID. DCed seroquel during the day, retained 400 at HS. haldol 5 mg TID PRN AH. otherwise continue prior mgmt. if pt is not less sedated tomorrow, will decrease methadone by 5 mg daily. 08/19: sedation alternating with agitation, but seemingly more calm today than prior, and more awake and alert. c/o depression, not anxiety today. decreased klonopin to 0.25 TID. DC entirely on tuesday. continue gabapentin 400 TID. DCed seroquel during the day, retained 400 at HS. haldol 5 mg TID PRN AH. otherwise continue prior mgmt. 08/20: sedation alternating with general calm but antagonistic behavior, and more awake and alert. DCed klonopin entirely 08/20. c/o sweating, malaise, nausea. CIWA with ativan per protocol as a precaution to benzo withdrawal. continue gabapentin 400 TID. DCed seroquel during the day, retained 400 at HS. haldol 5 mg TID PRN AH. otherwise continue prior mgmt. 08/21: Laying in bed. Patient reports feeling anxious and depressed; pt stated, I'm laying down because I'm anxious and have a headache . mumbled speech; difficult to understand at times. She reports auditory hallucinations telling her to self harm. difficult to engage. pt pulled bed covers over head mid- conversation and stopped conversation. continue tx plan. 08/22: sedation alternating with general calm but antagonistic behavior, and more awake and alert on average. DCed klonopin entirely 08/20. c/o sweating, malaise, nausea. CIWA with ativan per protocol as a precaution to benzo withdrawal. scoring low on CIWA through 08/22. continue gabapentin 400 TID. DCed seroquel during the day, retained 400 at HS. haldol 5 mg TID PRN AH. decrease methadone to 40 mg daily as of 08/23 to decrease daytime sedation. otherwise continue prior mgmt. 08/23: sedation trending toward alertness 08/23. DCed klonopin entirely 08/20. c/o sweating, malaise, nausea. CIWA with ativan per protocol as a precaution to benzo withdrawal. scoring low on CIWA through 08/22, 08/23. DC CIwa 08/23 as not indicated. continue gabapentin 400 TID. DCed seroquel during the day, retained 400 at HS. haldol 5 mg TID PRN AH. decreased methadone to 40 mg daily as of 08/23 to decrease daytime sedation. otherwise continue prior mgmt. 08/24: sedation trending toward alertness from early august. DCed klonopin entirely 08/20. c/o sweating, malaise, nausea. CIWA with ativan per protocol as a precaution to benzo withdrawal. scoring low on CIWA through 08/22, 08/23. DCed CIWA 08/24 as not indicated. continue gabapentin 400 TID. DCed seroquel during the day, retained 400 at HS. haldol 5 mg TID PRN AH. decreased methadone to 40 mg daily as of 08/23 to decrease daytime sedation. otherwise continue prior mgmt. dispo planning. has been referred to 4 rehabs. 08/25: Patient reports that she is very scared about discharge next week since she is on such a low dose of methadone, saying she is normally at at least 70 mg. She reports that it was lowered from 50 mg down to 40 mg because she was sedated during the day. She acknowledges that she was sedated but says it was due to a combination of having not slept for many days while embroiled in substance abuse prior to this admission as well as being restarted on Seroquel. She says that she is no longer feeling sedated during the day and is asking for it to be increased. She also wanted to discuss her Seroquel. She reports history of bipolar type 2 with depressive episodes. She says she is normally on Seroquel 200 mg b.i.d. during the day and then 300 mg q.h.s. which has now been changed to Seroquel 400 mg q.h.s.. Patient agrees that Seroquel is helpful for mood stability and wants to keep the nighttime dose however she says she has auditory hallucinations during the day for which daytime Seroquel helps. She explains AH is been present since she was about 7 years old and is always the same voice saying negative things; she agrees it could be related to PTSD but is not sure but denies any other types of voices or AH. Knurling Machine Tender agreed to medication changes as long as she remains awake and alert during the day of which she is confident. No SI; in behavioral and impulse control Medication: Increase methadone to 45 mg daily; will consider further increase if patient tolerates; otherwise patient is very afraid of relapse Continue Seroquel 400 mg q.h.s. Add Seroquel 50 mg b.i.d. p.r.n. for AH; will titrate if needed Trazodone 50 mg p.r.n. q.h.s. for insomnia Patient educated on: diagnosis, medication risk/benefits, substance abuse and therapeutic strategies Informed Consent: understands Reason for continued inpatient stay Substantial Risk for: rapid decompensation Time Spent With Patient Time: Total time managing care of this patient today ____ minutes.
[2024-08-26] MEDS: Omeprazole 40 MG CAPSULE.DR PO (05:39)
[2024-08-26] MEDS: Gabapentin 400 MG CAPSULE PO ×3 (05:39→20:24)
[2024-08-26] MEDS: QUEtiapine Fumarate 50 MG TABLET PO ×3 (05:39→18:16)
[2024-08-26] MEDS: Nicotine Polacrilex 2 MG GUM 4 MG BUCCAL ×6 (05:42→20:35)
[2024-08-26 08:00] VITALS: BP 107/58; PULSE 96; RESP 14; TEMP 36.8; O2SAT 96
[2024-08-26] MEDS: methADONE HCl 20 MG/2 ML ORAL.CONC 45 MG PO (08:02)
[2024-08-26] MEDS: Nicotine 21 MG PATCH.TD24 TRANSDERMA (09:52)
[2024-08-26] MEDS: Sennosides 8.6 MG TABLET 17.2 MG PO (12:28)
--- NOTE | 2024-08-26 15:04 | P.PNPSI_ITS ---
Subjective Subjective Date of Service: 08/26/24 Reason For Visit: Overdose Interim History: Met with patient; discussed with team Pt reports feeling better, better mood, more hopeful. Appreciates increase in methadone and denies feeling sedated; staff concurs. Pt said prn Seroquel a little helpful for AH, but only last an our. She agrees to increase to 100mg bid as long as it does not sedate her (she says it never really does). Constipated and started on docu/senna Mental Status Exam Mental Status Exam Narrative: Pt is alert and oriented; behavior is cooperative, in behavioral control; patient is not in distress; dressed in casual attire with unkempt hair; better and affect congruent, brighter, more calm; eye contact appropriate; Speech is normal rate, volume and prosody and not pressured; no psychomotor agitation/retardation present; thought process is organized and goal directed; Thought content is on tx, sobriety; otherwise pertinent to relevant topics and without any delusional content, paranoid ideations or grandiosity; denies any SI/HI. Intermittent AH which is chronic and of the same voice. Patients insight and judgment fair. Diagnostics Vital Signs (24Hr): Vital Signs - 24 hr 08/25/24 18:09 08/25/24 20:00 08/26/24 08:00 Temperature 97.7 F 98.2 F Pulse Rate 105 H 109 H 96 Respiratory Rate 16 16 14 Blood Pressure 122/82 121/66 107/58 L Pulse Oximetry 97 95 96 Oxygen Delivery Method Room Air Room Air Room Air BMI result Body Mass Index 24.5 Labs 08/13/24 16:08 Medications Medications Current Medications Acetaminophen (Acetaminophen 325 Mg Tablet) 650 mg PO Q6H PRN PRN Reason: Headache/Pain, Scale 1-10 Last Admin: 08/21/24 13:26 Dose: 650 mg Al Hydroxide/Mg Hydroxide (Magnesium Hydrox/Alum Hydrox 30 Ml Oral.Susp) 30 ml PO Q6H PRN PRN Reason: Heartburn/Nausea Calcium Carbonate (Calcium Oyster Shell Elemental 500 Mg Tablet) 500 mg PO Q4H PRN PRN Reason: Heartburn Capsaicin (Capsaicin 0.025% Cream 60 Gm Tube) 1 appl TOPICAL QID PRN; Protocol PRN Reason: ankle/hip pain Last Admin: 08/17/24 11:02 Dose: 1 appl Gabapentin (Gabapentin 400 Mg Capsule) 400 mg PO TID@0630,1300,1900 [facility] Last Admin: 08/26/24 12:00 Dose: 400 mg Guaifenesin (Guaifenesin La 600 Mg Tab.Er.12h) 1,200 mg PO BID PRN PRN Reason: Cough Haloperidol (Haloperidol 5 Mg Tablet) 5 mg PO TID PRN PRN Reason: AH/anxiety Last Admin: 08/25/24 11:26 Dose: 5 mg Loperamide HCl (Loperamide Hcl 2 Mg Capsule) 2 mg PO Q4H PRN PRN Reason: Diarrhea Melatonin (Melatonin 3 Mg Tablet) 3 mg PO BEDTIME PRN PRN Reason: insomnia Last Admin: 08/24/24 21:57 Dose: 3 mg Methadone HCl (Methadone Hcl 20 Mg/2 Ml Oral.Conc) 45 mg PO DAILY@0800 [facility] Last Admin: 08/26/24 08:02 Dose: 45 mg Nicotine (Nicotine 21 Mg Patch.Td24) 21 mg TRANSDERMA DAILY PRN PRN Reason: Smoking Cessation Last Admin: 08/26/24 09:52 Dose: 21 mg Nicotine Polacrilex (Nicotine Polacrilex 2 Mg Gum) 4 mg BUCCAL Q2H PRN PRN Reason: Nicotine Cravings Last Admin: 08/26/24 10:09 Dose: 4 mg Omeprazole (Omeprazole 40 Mg Capsule.Dr) 40 mg PO DAILY@0630 [facility] Last Admin: 08/26/24 05:39 Dose: 40 mg Ondansetron HCl (Ondansetron Odt 4 Mg Tab.Rapdis) 4 mg TRANSLINGU Q6H PRN PRN Reason: Nausea And Vomiting Last Admin: 08/20/24 14:13 Dose: 4 mg Prazosin HCl (Prazosin Hcl 1 Mg Capsule) 3 mg PO BEDTIME@1900 [facility]; Protocol Last Admin: 08/25/24 18:11 Dose: 3 mg Quetiapine Fumarate (Quetiapine Fumarate 400 Mg Tablet) 400 mg PO BEDTIME@1900 [facility] Last Admin: 08/25/24 18:11 Dose: 400 mg Quetiapine Fumarate (Quetiapine Fumarate 50 Mg Tablet) 50 mg PO TID PRN PRN Reason: Auditory Hallucinations Last Admin: 08/26/24 12:00 Dose: 50 mg Senna (Sennosides 8.6 Mg Tablet) 17.2 mg PO DAILY PRN PRN Reason: Constipation Last Admin: 08/26/24 12:28 Dose: 17.2 mg Trazodone HCl (Trazodone Hcl 50 Mg Tablet) 50 mg PO BEDTIME MRX1 PRN PRN Reason: Insomnia and continued insomni Last Admin: 08/25/24 18:56 Dose: 50 mg Allergies Allergies Allergy/AdvReac Type Severity Reaction Status Date / Time Unable to Assess Allergy Verified 08/09/24 16:03 Assessment & Plan Assessment & Plan (1) Bipolar II disorder: Status: Acute Code(s): F31.81 - Bipolar II disorder (2) Opioid use disorder: Status: Inactive Code(s): F11.90 - Opioid use, unspecified, uncomplicated (3) Aspiration pneumonia: Status: Resolved Code(s): J69.0 - Pneumonitis due to inhalation of food and vomit (4) Cocaine use disorder: Status: Acute Code(s): F14.10 - Cocaine abuse, uncomplicated (5) Mood disorder: Status: Inactive Code(s): F39 - Unspecified mood [affective] disorder Plan 08/14: increase HS prazosin to 2 mg for insomnia/nightmares. increase HS remeron to 30 for insomnia. decrease seroquel BID to 100 mg each, add perphenazine 4 mg BID. complete cross-taper tomorrow. due to sedation, weight. continue methadone 45 mg daily for now. pt asking for more sedating medications but can barely remain awake. 08/15: sedation alternating with agitation. increase HS prazosin to 3 mg. DC remeron as likely not needed. DC perphenazine per pt request, reinstate seroquel BID at 100 mg, leave HS dose at 400 mg. continue methadone at 45. continue klonopin 0.75 TID, decrease to 0.5 TID as of tomorrow. 08/16: sedation alternating with agitation. decrease klonopin to 0.5 TID. decrease gabapentin to 600 TID. decrease seroquel during the day to 50 mg each dose, TID PRN. otherwise continue prior mgmt. 08/17: sedation alternating with agitation. decrease klonopin to 0.25 TID tomorrow. decrease gabapentin to 400 TID. DC seroquel during the day, retain 400 at HS. haldol 5 mg TID PRN AH. otherwise continue prior mgmt. if pt is not presenting differently tomorrow, will decrease methadone by 5 mg daily. 3-day notice withdrawn. 08/18: sedation alternating with agitation, but seemingly more calm today than prior. c/o depression, not anxiety today. decreased klonopin to 0.25 TID. DC entirely on tuesday. continue gabapentin 400 TID. DCed seroquel during the day, retained 400 at HS. haldol 5 mg TID PRN AH. otherwise continue prior mgmt. if pt is not less sedated tomorrow, will decrease methadone by 5 mg daily. 08/19: sedation alternating with agitation, but seemingly more calm today than prior, and more awake and alert. c/o depression, not anxiety today. decreased klonopin to 0.25 TID. DC entirely on tuesday. continue gabapentin 400 TID. DCed seroquel during the day, retained 400 at HS. haldol 5 mg TID PRN AH. otherwise continue prior mgmt. 08/20: sedation alternating with general calm but antagonistic behavior, and more awake and alert. DCed klonopin entirely 08/20. c/o sweating, malaise, nausea. CIWA with ativan per protocol as a precaution to benzo withdrawal. continue gabapentin 400 TID. DCed seroquel during the day, retained 400 at HS. haldol 5 mg TID PRN AH. otherwise continue prior mgmt. 08/21: Laying in bed. Patient reports feeling anxious and depressed; pt stated, I'm laying down because I'm anxious and have a headache . mumbled speech; difficult to understand at times. She reports auditory hallucinations telling her to self harm. difficult to engage. pt pulled bed covers over head mid- conversation and stopped conversation. continue tx plan. 08/22: sedation alternating with general calm but antagonistic behavior, and more awake and alert on average. DCed klonopin entirely 08/20. c/o sweating, malaise, nausea. CIWA with ativan per protocol as a precaution to benzo withdrawal. scoring low on CIWA through 08/22. continue gabapentin 400 TID. DCed seroquel during the day, retained 400 at HS. haldol 5 mg TID PRN AH. decrease methadone to 40 mg daily as of 08/23 to decrease daytime sedation. otherwise continue prior mgmt. 08/23: sedation trending toward alertness 08/23. DCed klonopin entirely 08/20. c/o sweating, malaise, nausea. CIWA with ativan per protocol as a precaution to benzo withdrawal. scoring low on CIWA through 08/22, 08/23. DC CIwa 08/23 as not indicated. continue gabapentin 400 TID. DCed seroquel during the day, retained 400 at HS. haldol 5 mg TID PRN AH. decreased methadone to 40 mg daily as of 08/23 to decrease daytime sedation. otherwise continue prior mgmt. 08/24: sedation trending toward alertness from early august. DCed klonopin entirely 08/20. c/o sweating, malaise, nausea. CIWA with ativan per protocol as a precaution to benzo withdrawal. scoring low on CIWA through 08/22, 08/23. DCed CIWA 08/24 as not indicated. continue gabapentin 400 TID. DCed seroquel during the day, retained 400 at HS. haldol 5 mg TID PRN AH. decreased methadone to 40 mg daily as of 08/23 to decrease daytime sedation. otherwise continue prior mgmt. dispo planning. has been referred to 4 rehabs. 08/25: Patient reports that she is very scared about discharge next week since she is on such a low dose of methadone, saying she is normally at at least 70 mg. She reports that it was lowered from 50 mg down to 40 mg because she was sedated during the day. She acknowledges that she was sedated but says it was due to a combination of having not slept for many days while embroiled in substance abuse prior to this admission as well as being restarted on Seroquel. She says that she is no longer feeling sedated during the day and is asking for it to be increased. She also wanted to discuss her Seroquel. She reports history of bipolar type 2 with depressive episodes. She says she is normally on Seroquel 200 mg b.i.d. during the day and then 300 mg q.h.s. which has now been changed to Seroquel 400 mg q.h.s.. Patient agrees that Seroquel is helpful for mood stability and wants to keep the nighttime dose however she says she has auditory hallucinations during the day for which daytime Seroquel helps. She explains AH is been present since she was about 7 years old and is always the same voice saying negative things; she agrees it could be related to PTSD but is not sure but denies any other types of voices or AH. Billing Auditor agreed to medication changes as long as she remains awake and alert during the day of which she is confident. No SI; in behavioral and impulse control 4/6 Pt reports feeling better, better mood, more hopeful. Appreciates increase in methadone and denies feeling sedated; staff concurs. Pt said prn Seroquel a little helpful for AH, but only last an our. She agrees to increase to 100mg bid as long as it does not sedate her (she says it never really does). Constipated and started on docu/senna Medication: Increased methadone to 45 mg daily; will consider further increase if patient tolerates; otherwise patient is very afraid of relapse reSTART Seroquel 100mg BID @0900,1300 (was on 200mg bid) Continue Seroquel 400 mg q.h.s. Continue Seroquel 50 mg b.i.d. p.r.n. for AH; will titrate if needed Trazodone 50 mg p.r.n. q.h.s. for insomnia Patient educated on: diagnosis, medication risk/benefits, substance abuse and medical condition Informed Consent: understands Reason for continued inpatient stay Substantial Risk for: stable for discharge and med/psych decompensation Time Spent With Patient Time: Total time managing care of this patient today ____ minutes.
[2024-08-26] MEDS: polyethylene glycoL 3350 17 GM POWD.PACK PO (16:20)
[2024-08-26] MEDS: Sennosides/Docusate Sodium TABLET 1 TAB PO (16:20)
[2024-08-26 18:16] VITALS: BP 122/76
[2024-08-26] MEDS: Prazosin HCL 1 MG CAPSULE 3 MG PO (18:16)
[2024-08-26] MEDS: traZODone HCL 50 MG TABLET PO (18:16)
[2024-08-26] MEDS: QUEtiapine Fumarate 400 MG TABLET PO (18:16)
[2024-08-26 18:23] VITALS: BP 122/76; PULSE 104; RESP 14; TEMP 36.4; O2SAT 96
[2024-08-27] MEDS: Omeprazole 40 MG CAPSULE.DR PO (06:36)
[2024-08-27] MEDS: Gabapentin 400 MG CAPSULE PO ×3 (06:36→18:13)
[2024-08-27] MEDS: QUEtiapine Fumarate 50 MG TABLET PO (07:00)
[2024-08-27] MEDS: Nicotine Polacrilex 2 MG GUM 4 MG BUCCAL ×5 (07:00→17:33)
[2024-08-27] MEDS: methADONE HCl 20 MG/2 ML ORAL.CONC 45 MG PO (07:49)
[2024-08-27 07:50] VITALS: BP 109/57; PULSE 96; RESP 14; TEMP 36.4; O2SAT 97
[2024-08-27] MEDS: Sennosides/Docusate Sodium TABLET 1 TAB PO (08:11)
[2024-08-27] MEDS: QUEtiapine Fumarate 100 MG TABLET PO (08:11)
[2024-08-27] MEDS: Nicotine 21 MG PATCH.TD24 TRANSDERMA (11:15)
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
[2024-08-27] MEDS: HaloperidoL 5 MG TABLET PO ×2 (13:25→15:18)
[2024-08-27 18:13] VITALS: BP 109/70
[2024-08-27] MEDS: QUEtiapine Fumarate 400 MG TABLET PO (18:13)
[2024-08-27] MEDS: Prazosin HCL 1 MG CAPSULE 3 MG PO (18:13)
[2024-08-27] MEDS: traZODone HCL 50 MG TABLET PO ×2 (18:13→18:38)
[2024-08-27 19:45] VITALS: BP 110/71; PULSE 109; RESP 16; TEMP 36.8; O2SAT 95
[2024-08-28] MEDS: Omeprazole 40 MG CAPSULE.DR PO (06:50)
[2024-08-28] MEDS: Gabapentin 400 MG CAPSULE PO (06:50)
[2024-08-28] MEDS: Nicotine Polacrilex 2 MG GUM 4 MG BUCCAL ×3 (06:50→10:28)
[2024-08-28 07:51] VITALS: BP 94/53; PULSE 90; RESP 18; TEMP 37.1; O2SAT 95
[2024-08-28] MEDS: methADONE HCl 20 MG/2 ML ORAL.CONC 40 MG PO (07:59)
[2024-08-28] MEDS: Acetaminophen 325 MG TABLET 650 MG PO (08:00)
[2024-08-28] MEDS: Sennosides/Docusate Sodium TABLET 1 TAB PO (08:01)
[2024-08-28] MEDS: HaloperidoL 5 MG TABLET PO (10:29)
[2024-08-28] MEDS: Nicotine 21 MG PATCH.TD24 TRANSDERMA (10:32)
== END 2024-08-28 11:15 | disposition home or self-care (01) | DRG 753 ==
PROVIDERS: Admitting Provider Student in an Organized Health Care Education/Training Program; Visit Provider Psychiatry & Neurology Psychiatry
DX: F31.81 Bipolar II disorder (principal); F11.20 Opioid dependence, uncomplicated; F17.210 Nicotine dependence, cigarettes, uncomplicated; F14.10 Cocaine abuse, uncomplicated; Z59.02 Unsheltered homelessness; Z71.6 Tobacco abuse counseling; Z62.810 Personal history of physical and sexual abuse in childhood; Z79.899 Other long term (current) drug therapy
CPT/HCPCS: 36415; 80061; 82565; 82607; 82746; 83036; 84439; 84443

== ENCOUNTER → 2024-08-13 11:47 | Outpatient (BNV) | payer OTHER, SELFPAY | PROVIDERS: Admitting Provider Student in an Organized Health Care Education/Training Program; Visit Provider Psychiatry & Neurology Psychiatry | DX: F11.90 Opioid use, unspecified, uncomplicated (principal); J69.0 Pneumonitis due to inhalation of food and vomit; F14.10 Cocaine abuse, uncomplicated; F39 Unspecified mood [affective] disorder | CPT/HCPCS: 90792; 99231; 99232 ==